=== PATIENT | female | born 1955 | race Caucasian/White ===

== ENCOUNTER 2019-03-17 07:35 | Inpatient (IN) | payer MEDICARE ==
[2019-03-17 08:26] LABS: #Eosinphils 0.3 thou/uL (0.0-0.7); #Lymphocytes 1.3 thou/uL (1.20-3.40); #Monocytes 0.8 thou/uL (0.11-0.59); #Neutrophils 6.6 thou/uL (1.40-6.50); %Basophils 0.4 % (0.0-1.0); %Lymphocytes 14.2 % (21.0-51.0); %Monocytes 8.7 % (0.0-10.0); %Neutrophils 73.6 % (42.0-75.0); Hemoglobin 10.2 g/dL (12.0-16.0); Mean Corpuscular HGB CONC 32.2 g/dL (32.0-36.0); Mean Corpuscular Hemoglobin 32.4 pg (27.0-31.0); Mean Platelet Volume 7.7 fL (7.4-10.4); Platelet Count 273 thou/uL (130-400); Red Blood Cell (RBC) Count 3.16 mill/uL (4.20-5.40)
[2019-03-17 08:49] LABS: ALT (SGPT) 8 U/L (8-55); AST (SGOT) 11 U/L (5-34); Albumin 3.4 g/dL (3.4-4.8); Alkaline Phosphatase 109 U/L (40-150); Anion Gap 24 mmol/L (10-20); BUN (Urea Nitrogen) 51 mg/dL (9.8-20.1); Bilirubin, Total 0.5 mg/dL (0.2-1.2); Calc. Creatinine Clearance 0 mL/min (70-130); Calcium 7.3 mg/dL (7.8-10.44); Carbon Dioxide 21 mmol/L (23-31); Chloride 95 mmol/L (98-107); Estimated GFR-MDRD 4; Globulin 2.9 g/dL (2.4-3.5); Glucose 130 mg/dL (80-115); Potassium 4.2 mmol/L (3.5-5.1); Protein, Total 6.3 g/dL (6.0-8.3); Sodium 136 mmol/L (136-145)
[2019-03-17] MEDS ORDERED: Nitroglycerin 2% Ointment 1 INCH/1 GM Packet ONE (09:01)
[2019-03-17] MEDS ORDERED: Aspirin Chewable 81 MG TAB ONE (09:02)
[2019-03-17 09:10] LABS: CKMB 5.2 ng/mL (0-6.6)
--- NOTE | 2019-03-17 09:21 | RAD ---
Right lower leg 2 views HISTORY: Right leg pain and swelling. FINDINGS: Tibia and fibula are intact. Mild degenerative changes of the knee and ankle. Osseous struc tures are diffusely demineralized. Sheetlike dystrophic calcification projects over the distal Achilles tendon. Prominent calcification over the arterial structures. IMPRESSION: No acute osseous abnormalities are demonstrated. Osteoporosis. Atherosclerosis.
--- NOTE | 2019-03-17 09:22 | RAD ---
Portable chest: HISTORY: Lower extremity edema COMPARISON: none FINDINGS:Cardiomegaly postop sternotomy change. Transvenous pacemaker leads. Mild vascular engorgemen t. No focal infiltrate or significant effusion. IMPRESSION:Cardiomegaly with mild vascular engorgement
[2019-03-17] MEDS ORDERED: Morphine 4 MG/ML VIAL ONE (09:49)
[2019-03-17] MEDS ORDERED: Cyclobenzaprine 10 MG TAB ONE (09:49)
[2019-03-17] MEDS ORDERED: cefTRIAXone\\ROCEPHIN 1 GM VIAL ONE (10:02)
[2019-03-17] MEDS ORDERED: ISOVUE-370 76%-LOCM 1 ML ONE (11:45)
[2019-03-17 12:26] LABS: Troponin I 0.299 ng/mL (< 0.028)
[2019-03-17] MEDS ORDERED: Diltiazem 125 MG in Sodium Chloride 0.9% 100 ML IVPB SCH (12:45)
[2019-03-17] MEDS ORDERED: Nitroglycerin 0.4 MG TAB 1 EACH ONE (12:47)
--- NOTE | 2019-03-17 13:00 | CON ---
DATE OF CONSULTATION: HISTORY OF PRESENT ILLNESS: This is a 63-year-old female who has history of end-stage renal disease, presented to the hospital after having chest pain. The patient does peritoneal dialysis daily without any complication. PAST MEDICAL HISTORY: End-stage renal disease, hypertension, tunneled dialysis catheter, AV fistula, history of cholecystectomy, hysterectomy, left hip surgery, , cataract surgery, cardiac catheterization. MEDICATIONS: Home medications list reviewed. Hospital medications list reviewed. ALLERGIES: REVIEWED. REVIEW OF SYSTEMS: A 15-point review of systems was performed and was negative except for positives noted above. GENERAL: HEAD: NECK: No swelling or lumps. NOSE: No epistaxis or discharge. EYES: No diplopia or pain. RESPIRATORY: CARDIOVASCULAR: GASTROINTESTINAL: /AGRICULTURAL EDUCATION INSTRUCTOR: MUSCULOSKELETAL: No joint pain. NEUROPSYCHIATRIC SYSTEMS: No suicidal ideation. No ideation. SKIN: Denies any rash or ulcer. CONSTITUTIONAL: No fever or chills. PHYSICAL EXAMINATION: See above. CONSTITUTIONAL: Awake, alert, in no acute distress. VITAL SIGNS: Afebrile. Pulse 70, breathing 16, blood pressure 130/70. GENERAL APPEARANCE AND MENTAL STATUS: Fair. HEAD/NECK: Normocephalic. Atraumatic. EYES: EOMI. No deformity. EARS: Clear. No ulcers. NOSE: Intact. No lesions. MOUTH: Clear. No discharge. THROAT: Clear. No exudate. LUNGS: Clear. No crackles. CARDIAC: S1, S2. No rub. ABDOMEN: Benign. Bowel sounds positive. GENITALIA/RECTUM: Steiner absent. BACK/EXTREMITIES: Lower extremity has skin ulcer. NEUROLOGICAL: Alert and motor intact. SKIN: LYMPHATICS: LABORATORY DATA: Labs show hemoglobin 10.2. ASSESSMENT AND PLAN: 1. Stage 6 chronic kidney disease, continue peritoneal dialysis. 2. Hypertension, stable. 3. Anemia. 4. Foot ulcer, advised the patient to be compliant with diet. 5. Skin ulcer, management per primary team. 6. Chest pain, management per primary team. Job ID: [id number]
[2019-03-17] MEDS ORDERED: Fentanyl 100 MCG/2 ML VIAL SLOW IVP SCH (13:15)
[2019-03-17] MEDS ORDERED: Amiodarone 450 MG in Dextrose 5% in Water 250 ML IVPB SCH (13:15)
--- NOTE | 2019-03-17 13:17 | HP ---
PRIMARY CARE PROVIDER: Dr. Sujey Mota. REFRIGERATION SPECIALIST: Dr. Blandon. CHIEF COMPLAINT: Chest pain. HISTORY OF PRESENT ILLNESS: Ms. Pandya is a pleasant 63-year-old lady, who was seen at [facility] on March 17, 2019. She is a peritoneal dialysis patient. She initially presented to the emergency room, complaining of bilateral lower extremity swelling and blisters behind her ankles. After coming to the emergency room, she started having on and off chest pain. She describes the pain as retrosternal, sharp, radiating to her back, accompanied by shortness of breath and nausea. She denies any lightheadedness. She denies any fevers or chills. She denies any vomiting. She reports that she did not have this kind of pain in the past. She cannot recall any aggravating or relieving factors for the chest pain. REVIEW OF SYSTEMS: All other systems reviewed and found to be negative. PAST MEDICAL HISTORY: 1. Coronary artery disease. 2. Atrial fibrillation. 3. Status post pacemaker placement. 4. Hypothyroidism. 5. Diabetes mellitus, type 2. 6. Hypertension. 7. End-stage renal disease, on peritoneal dialysis. SURGICAL HISTORY: 1. Dialysis shunt in the right upper extremity. 2. Peritoneal dialysis catheter to right lower quadrant. 3. Hysterectomy. FAMILY HISTORY: No family history of premature coronary artery disease. SOCIAL HISTORY: The patient denies tobacco use, alcohol use, and recreational drug use. ALLERGIES: DEMEROL AND PENICILLIN. CURRENT MEDICATIONS: 1. Renvela 800 mg tablets two tablets 3 times a day. 2. Multaq 400 mg 2 times a day. 3. Levothyroxine 25 mcg daily. PHYSICAL EXAMINATION: GENERAL: On examination, Ms. Pandya is awake and alert, not in acute distress. VITAL SIGNS: Blood pressure is 119/71, pulse 86, respiratory rate 17, and oxygen saturation 98% on room air. She is afebrile. EYES: No scleral icterus, no conjunctival pallor. ENT: Moist mucosal membranes. No oropharyngeal erythema or exudates. NECK: Supple, nontender, trachea is midline. RESPIRATORY: Accessory muscles of breathing are not active. Chest wall movements are symmetric bilaterally. Lungs are clear to auscultation without wheeze, rhonchi, or crepitations. CARDIOVASCULAR: S1 and S2 are heard, regular. Peripheral pulses palpable. No carotid bruit. No pericardial rub. ABDOMEN: Soft, nontender, bowel sounds heard. NEUROLOGIC: Cranial nerves 2 through 12 are intact. MUSCULOSKELETAL: Power is 5/5 in all 4 extremities. SKIN: Bilateral lower extremity edema, healing wounds over the posterior aspect of the right leg. LYMPHATIC: No cervical lymphadenopathy. PSYCHIATRIC: Normal mood, normal affect, the patient is oriented to person, place, and time. DIAGNOSTIC STUDIES: Ms. Pandya's labs and investigations were reviewed. I reviewed her electrocardiogram from 9:06 a.m., which shows wide QRS rhythm, no ST changes to suggest an acute coronary syndrome. I also reviewed her chest x-ray, which shows cardiomegaly and vascular engorgement. Tibia and fibula x-rays did not show any acute osseous abnormalities. Normal white count, macrocytic anemia with hemoglobin 10.2, normal platelet count. Normal sodium, normal potassium, elevated blood urea nitrogen of 51 and elevated creatinine of 9.39. Troponin-I is indeterminate at 0.299. BNP is mildly elevated at 209. ASSESSMENT AND PLAN: Ms. Pandya is a pleasant 63-year-old lady, who was seen at [facility] on March 17, 2019. Her problem list includes: 1. Chest pain: Etiology is unclear. Given her significant cardiac history, she will be admitted to the hospital for monitoring on telemetry and to recheck her cardiac enzymes. Cardiology Service will be consulted for opinion and help with management. 2. Atrial fibrillation: The patient has a history of paroxysmal atrial fibrillation. Her initial echocardiogram showed wide QRS rhythm. However, the latest electrocardiogram shows atrial fibrillation with rapid ventricular response. She will be started on Cardizem drip. A 2D echocardiogram will be requested. 3. End-stage renal disease, on peritoneal dialysis: Nephrology Service is being consulted for maintenance dialysis. 4. Diabetes mellitus, type 2: The patient will be started on Accu-Cheks and insulin sliding scale. 5. Hypertension: We will monitor her vital signs and titrate antihypertensives as needed. Many thanks for allowing me to participate in your patient's care. Please feel free to contact me with any questions or concerns. LEVEL OF RISK: High. LEVEL OF COMPLEXITY: High. Job ID: [id number]
--- NOTE | 2019-03-17 14:35 | CT ---
CT arteriogram chest with IV contrast and 3-D imaging CT arteriogram abdomen with IV contrast and 3-D imaging HISTORY: Chest and abdomen pain. Back pain. FINDINGS: There is good contrast opacification the pulmonary arteries and thoracic aorta with normal branching great vessels. Calcification throughout the arterial structures. Calcification within the proximal portion of the superior mesenteric artery resulting long segment high-grade stenosis. Second benjamin arteries supply the inferior pole of each kidney. Nonspecific lymph nodes throughout the mediastinum. Gallbladder not visualized. Presumed surgically a bsent. Degenerative and postoperative changes lumbar spine. Radiopaque tubing of the lower abdomen is partially visualized and may represent peritoneal dialysis catheter. IMPRESSION: No evidence of aortic dissection or aneurysm. Atherosclerosis. 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
[2019-03-17 15:33] LABS: Troponin I 0.318 ng/mL (< 0.028)
[2019-03-17] MEDS ORDERED: Communication Order-Pharmacy FS SCH (16:00)
--- NOTE | 2019-03-17 16:27 | CON ---
DATE OF CONSULTATION: 03/17/2019 REASON FOR CONSULTATION: Chest pain. HISTORY OF PRESENT ILLNESS: Ms. Pandya is a pleasant 63-year-old white female, who comes to the hospital for bilateral lower extremity ulcers and pain. She was in the ER for leg pain. She has some ulcers, probably from peripheral vascular disease and started having chest tightness described it as stone on her chest. She suddenly went into atrial fibrillation RVR, heart rate in the 40s and she converted on her own within about 20 minutes. Her pain got better after fentanyl was given. Troponins were drawn and have increased from 0.27 up to 0.31, so Cardiology is being consulted for all of this. On my evaluation, Ms. Pandya is chest pain free. She just feels a little discomfort. She has significant history of coronary artery disease. She has had stents placed in the past, the last time was in 2004, almost [address] Blandon is her primary metal furniture polisher. She last saw him in November of this year. She remembers having had a stress test last year and being told that everything looked fine. PAST MEDICAL HISTORY: 1. End-stage renal disease, on peritoneal dialysis. 2. Coronary artery disease as above. 3. Paroxysmal atrial fibrillation. 4. Pacemaker placement recently. 5. Hypothyroidism. 6. Type 2 diabetes. 7. Hypertension. PAST SURGICAL HISTORY: 1. Dialysis shunt, right upper extremity. 2. Peritoneal dialysis catheter, right lower quadrant. 3. Hysterectomy. 4. Heart catheterization with stenting last one in 2004. FAMILY HISTORY: No early coronary artery disease. SOCIAL HISTORY: No alcohol, tobacco, or drugs. ALLERGIES: DEMEROL AND PENICILLIN. OUTPATIENT MEDICATIONS: Include: 1. Renvela 800 mg 3 times a day. 2. Multaq 400 mg b.i.d. 3. Levothyroxine 25 mcg a day. REVIEW OF SYSTEMS: A 12-point review of systems was done and was all negative unless stated in the history of present illness. PHYSICAL EXAMINATION: VITAL SIGNS: Temperature 98.2, pulse 78, respiratory rate 18, saturating 98% on 2 L nasal cannula. GENERAL: Awake, alert, and oriented x3, in no distress. HEENT: Normocephalic and atraumatic. NECK: Supple. LUNGS: Clear. CARDIOVASCULAR: S1 and S2. No S3 or S4. There is a grade 2/6 systolic murmur at the left sternal border. ABDOMEN: Soft. Positive bowel sounds. EXTREMITIES: 1+ edema. There are some ulcers in the posterior aspect of the leg and very tender. SKIN: Warm. LABORATORY DATA: Laboratory work was reviewed. CBC with a white count of 9, hemoglobin of 10, hematocrit 31, platelet count of 273. Chemistries were reviewed. BUN 51, creatinine 9.3, gap was 24, GFR 4, glucose of 130, calcium 7.3. Troponin 0.27 to 0.29 and then 0.31. BNP was 209. Albumin of 3.4. CT per dissection protocol was unremarkable except for atherosclerotic disease and a very high-grade stenosis of the superior mesenteric artery. X-rays of the tibia-fibula showed osteoporosis, but no acute osseous abnormality. No evidence of bone infection. Chest x-ray showed cardiomegaly with mild vascular engorgement. ASSESSMENT AND PLAN: 1. Chest pain: Concern for angina. Her elevated troponins could be explained by her renal dysfunction. However, in the setting of having chest pain, we have to assume this is related to coronary artery disease and is in fact angina. We will plan on further risk stratification with a heart catheterization. We spoke at length about the risks and benefits of the procedure. Risks included, but not limited to stroke, [place], , bleeding, need for blood transfusion, limb loss, organ loss. The patient understands verbalized understanding of this and agrees to proceed. 2. Drug-eluting stents if needed. 3. Bilateral lower extremity ulcers. We will get a CT angio of the bilateral lower extremities this evening to see what we are dealing with as far as her peripheral vascular disease. If her heart checks out, we may have to do peripheral angio and possible intervention to her legs to try to open better blood flow to leg, so she can heal better. Thank you for letting us participate in the care of your patient. We will follow. Job ID: [id number]
[2019-03-17] MEDS: Morphine 2 MG/ML SYRINGE SLOW IVP PRN ×2 (16:33→21:03)
[2019-03-17 18:03] VITALS: BMI 46.8
[2019-03-18] MEDS: Morphine 2 MG/ML SYRINGE SLOW IVP PRN ×3 (02:04→21:24)
[2019-03-18] MEDS: Acetaminophen 325 MG TAB PO PRN ×3 (03:06→18:15)
[2019-03-18 07:53] LABS: #Eosinphils 0.3 thou/uL (0.0-0.7); #Monocytes 0.8 thou/uL (0.11-0.59); #Neutrophils 6.2 thou/uL (1.40-6.50); %Basophils 0.2 % (0.0-1.0); %Eosinophils 3.3 % (0.0-10.0); %Lymphocytes 11.7 % (21.0-51.0); %Monocytes 9.4 % (0.0-10.0); %Neutrophils 75.4 % (42.0-75.0); Hemoglobin 9.4 g/dL (12.0-16.0); Mean Corpuscular HGB CONC 31.3 g/dL (32.0-36.0); Mean Corpuscular Hemoglobin 31.7 pg (27.0-31.0); Mean Platelet Volume 7.7 fL (7.4-10.4); Platelet Count 254 thou/uL (130-400); RBC Distribution Width 13.2 % (11.5-14.5); Red Blood Cell (RBC) Count 2.96 mill/uL (4.20-5.40); White Blood Cell (WBC) Count 8.2 thou/uL (4.8-10.8)
[2019-03-18 08:19] LABS: Anion Gap 19 mmol/L (10-20); BUN (Urea Nitrogen) 49 mg/dL (9.8-20.1); Calc. Creatinine Clearance 12 mL/min (70-130); Calcium 7.6 mg/dL (7.8-10.44); Carbon Dioxide 24 mmol/L (23-31); Chloride 96 mmol/L (98-107); Estimated GFR-MDRD 5; Glucose 158 mg/dL (80-115); Potassium 4.1 mmol/L (3.5-5.1); Sodium 135 mmol/L (136-145)
[2019-03-18] MEDS: Dronedarone HCl 400 MG TAB PO SCH ×2 (09:26→21:23)
--- NOTE | 2019-03-18 09:31 | PRG ---
DATE OF SERVICE: 03/18/2019 SUBJECTIVE: This is a 63-year-old female being seen for end-stage renal disease. The patient denied nausea, vomiting, or chest pain. OBJECTIVE: See above. CONSTITUTIONAL: Awake, alert, in no acute distress. VITAL SIGNS: Afebrile. Pulse 85, breathing 16, and blood pressure 118/54. GENERAL APPEARANCE AND MENTAL STATUS: Fair. HEAD/NECK: Normocephalic. Atraumatic. EYES: EOMI. No deformity. EARS: Clear. No ulcers. NOSE: Intact. No lesions. MOUTH: Clear. No discharge. THROAT: Clear. No exudate. LUNGS: Clear. No crackles. CARDIAC: S1, S2. No rub. ABDOMEN: Benign. Bowel sounds positive. GENITALIA/RECTUM: Steiner absent. BACK/EXTREMITIES: Edema 0+. NEUROLOGICAL: Alert and motor intact. SKIN: LYMPHATICS: LABORATORY DATA: Reviewed. ASSESSMENT AND PLAN: 1. Stage 6 chronic kidney disease, continue PD. 2. Hypertension, stable. 3. Anemia, stable. 4. Medication based on GFR appropriate. Job ID: [id number]
[2019-03-18 10:11] LABS: CKMB 11.5 ng/mL (0-6.6)
[2019-03-18] MEDS ORDERED: Iopamidol 370 76% 100 ML VIAL ONE (10:27)
[2019-03-18] MEDS ORDERED: Midazolam HCl 2 mg/2 ml Vial ONE (11:46)
[2019-03-18] MEDS ORDERED: Fentanyl 100 MCG/2 ML VIAL ONE (11:46)
[2019-03-18] MEDS ORDERED: Heparin 10,000 UNITS/1 ML VIAL ONE ×2 (12:31→12:56)
[2019-03-18] MEDS ORDERED: TICAGRELOR 90 MG TABLET ONE (12:39)
--- NOTE | 2019-03-18 13:15 | PDOC.PN ---
- Subjective Encounter Start Date: 03/18/19 Encounter Start Time: 13:13 Subjective: bothered by the foot/leg wounds/blisters -: no CP/SOB - Objective MAR Reviewed: Yes Vital Signs & Weight: Vital Signs (12 hours) Temp Pulse Resp BP Pulse Ox 03/18/19 11:21 98.6 F 87 18 99/44 L 95 03/18/19 07:53 98.8 F 85 16 118/55 L 93 L 03/18/19 07:30 98 03/18/19 04:00 97.9 F 84 19 101/65 95 Weight Admit Weight 256 lb 4.8 oz Weight 256 lb 4.8 oz I&O: 03/17/19 03/18/19 03/19/19 06:59 06:59 06:59 Intake Total 340 Output Total 100 Balance 240 Result Diagrams: 03/18/19 07:37 03/18/19 07:37 Additional Labs: Accuchecks 03/18/19 03/18/19 03/17/19 10:40 05:45 19:44 POC Glucose 153 H 162 H 165 H Laboratory Tests 03/17/19 03/17/19 03/17/19 08:12 11:44 14:59 Troponin I 0.278 H 0.299 H 0.318 H* 03/18/19 07:37 Troponin I 1.347 H* Phys Exam - Physical Examination Constitutional: NAD tired looking HEENT: PERRLA, moist MMs, sclera anicteric, oral pharynx no lesions Neck: no nodes, no JVD, supple, full ROM Respiratory: no wheezing, no rales, no rhonchi Cardiovascular: RRR, no significant murmur Gastrointestinal: soft, non-tender, no distention, positive bowel sounds Musculoskeletal: pulses present, edema present open blisters on feet and ankles Psychiatric: normal affect, A&O x 3 Skin: no rash Dx/Plan (1) Type 2 myocardial infarction Code(s): I21.A1 - MYOCARDIAL INFARCTION TYPE 2 Status: Acute Comment: Cardiac Cath today. (2) Wound, open, leg Code(s): S81.809A - UNSPECIFIED OPEN WOUND, UNSPECIFIED LOWER LEG, INIT ENCNTR Status: Acute Comment: Lower extremities angiogram ordered. suspect PAD. Wound care consulted.start Statin,ASA when Ok w cardiology (3) Paroxysmal atrial fibrillation Code(s): I48.0 - PAROXYSMAL ATRIAL FIBRILLATION Status: Chronic Comment: NSR rocky r[place]. monitor.restart Multaq. Not on any OAC per her [place] Cl[employer] Dr. Blandon (4) CAD (coronary artery disease) Code(s): I25.10 - ATHSCL HEART DISEASE OF [place] CORONARY ARTERY W/O ANG PCTRS Status: Chronic Comment: Restart ASA after Cath .Reconcile home meds. (5) DM2 (diabetes mellitus, type 2) Status: Chronic Comment: ISS w Accuchecks (6) HTN (hypertension) Code(s): I10 - ESSENTIAL (PRIMARY) HYPERTENSION Status: Chronic (7) ESRD (end stage renal disease) on dialysis Code(s): N18.6 - END STAGE RENAL DISEASE; Z99.2 - DEPENDENCE ON RENAL DIALYSIS Status: Chronic Comment: Cont PD in house. daily labs (8) SMA stenosis Code(s): I77.1 - STRICTURE OF ARTERY Status: Chronic Comment: suspect chronic as Pt asymptomatic.Will need at least ASA and statin. (9) Pacemaker Code(s): Z95.0 - PRESENCE OF CARDIAC PACEMAKER Status: Chronic - Plan respiratory therapy, incentive spirometry, DVT proph w/SCDs Up going troponin.cath today. -: should be on BB,GRACE-I,ASA,statin. not listed in home meds -: peritoneal dialysis. nephrology folloing -: AM labs.HD stable -: high risk of decompensation d/t multiple co morbidities * . Review of Systems - Review of Systems Constitutional: weakness, malaise. negative: fever, chills, sweats, other ENT: negative: Ear Pain, Ear Discharge, Nose Pain, Nose Discharge, Nose Congestion, Mouth Pain, Mouth Swelling, Throat Pain, Throat Swelling, Other Respiratory: negative: Cough, Dry, Shortness of Breath, Hemoptysis, SOB with Excertion, Pleuritic Pain, Sputum, Wheezing Cardiovascular: negative: chest pain, palpitations, orthopnea, paroxysmal nocturnal dyspnea, edema, light headedness, other Gastrointestinal: negative: Nausea, Vomiting, Abdominal Pain, Diarrhea, Constipation, Melena, Hematochezia, Other Genitourinary: negative: Dysuria, Frequency, Incontinence, Hematuria, Retention , Other Musculoskeletal: Foot Pain. negative: Neck Pain, Shoulder Pain, Arm Pain, Back Pain, Hand Pain, Leg Pain, Other Skin: negative: Rash, Lesions, Ronal, Bruising, Other Neurological: negative: Weakness, Numbness, Incoordination, Change in Speech, Confusion, Seizures, Other - Medications/Allergies Allergies/Adverse Reactions: Allergies Allergy/AdvReac Type Severity Reaction Status Date / Time meperidine [From Demerol] Allergy Verified 03/17/19 12:39 Penicillins Allergy Verified 03/17/19 12:39 Medications: Current Medications Acetaminophen (Tylenol) 650 mg PO Q4H PRN PRN Reason: Headache/Fever/Mild Pain (1-3) Last Admin: 03/18/19 09:05 Dose: 650 mg Dronedarone (Multaq) 400 mg PO BID AFSHAN Last Admin: 03/18/19 09:26 Dose: 400 mg Levothyroxine Sodium (Synthroid) 125 mcg PO 0600 [facility] Miscellaneous Information (Communication Order-Pharmacy) 0 each FS ONE [facility] Stop: 03/18/19 16:01 Morphine Sulfate (Morphine) 2 mg SLOW IVP Q4H PRN PRN Reason: Pain Last Admin: 03/18/19 06:42 Dose: 2 mg Sevelamer Carbonate (Renvela) 1,600 mg PO TID [facility] Sodium Chloride (Flush - Normal Saline) 10 ml IVF Q12HR AFSHAN Last Admin: 03/18/19 09:05 Dose: 10 ml Sodium Chloride (Flush - Normal Saline) 10 ml IVF PRN PRN PRN Reason: Saline Flush
[2019-03-18] MEDS ORDERED: Sodium Chloride 0.9% 1,000 ML IV SCH (14:00)
[2019-03-18] MEDS: Sevelamer Carbonate 800 MG TAB PO SCH ×2 (15:12→21:22)
[2019-03-18] MEDS ORDERED: Morphine 2 MG/ML SYRINGE ONE (17:10)
[2019-03-18] MEDS: Atorvastatin Calcium 20 MG TAB PO SCH (21:22)
[2019-03-18] MEDS: TICAGRELOR 90 MG TABLET PO SCH (21:23)
[2019-03-19] MEDS: Morphine 2 MG/ML SYRINGE SLOW IVP PRN ×6 (01:33→21:45)
[2019-03-19] MEDS: Acetaminophen 325 MG TAB PO PRN ×3 (04:17→15:16)
[2019-03-19] MEDS: Levothyroxine Sodium 125 MCG TAB PO SCH (05:33)
[2019-03-19 05:46] LABS: #Eosinphils 0.2 thou/uL (0.0-0.7); #Lymphocytes 0.9 thou/uL (1.20-3.40); #Monocytes 0.5 thou/uL (0.11-0.59); #Neutrophils 5.4 thou/uL (1.40-6.50); %Basophils 0.2 % (0.0-1.0); %Eosinophils 3.4 % (0.0-10.0); %Lymphocytes 12.2 % (21.0-51.0); %Monocytes 7.2 % (0.0-10.0); %Neutrophils 77.1 % (42.0-75.0); Hemoglobin 9.3 g/dL (12.0-16.0); Mean Corpuscular HGB CONC 32.9 g/dL (32.0-36.0); Mean Corpuscular Hemoglobin 33.5 pg (27.0-31.0); Mean Platelet Volume 7.7 fL (7.4-10.4); Platelet Count 256 thou/uL (130-400); RBC Distribution Width 13.2 % (11.5-14.5); Red Blood Cell (RBC) Count 2.79 mill/uL (4.20-5.40)
[2019-03-19 06:05] LABS: ALT (SGPT) 7 U/L (8-55); AST (SGOT) 13 U/L (5-34); Alkaline Phosphatase 92 U/L (40-150); Anion Gap 17 mmol/L (10-20); BUN (Urea Nitrogen) 44 mg/dL (9.8-20.1); Bilirubin, Total 0.3 mg/dL (0.2-1.2); Calc. Creatinine Clearance 13 mL/min (70-130); Calcium 7.4 mg/dL (7.8-10.44); Carbon Dioxide 23 mmol/L (23-31); Chloride 97 mmol/L (98-107); Estimated GFR-MDRD 5; Globulin 3.1 g/dL (2.4-3.5); Glucose 161 mg/dL (80-115); Protein, Total 6.1 g/dL (6.0-8.3); Sodium 133 mmol/L (136-145)
[2019-03-19] MEDS ORDERED: Dextrose 50% Abboject 50 ML SYRINGE IVP PRN (07:22)
[2019-03-19] MEDS ORDERED: Dextrose 5% in Water 1,000 ML IV PRN (07:22)
[2019-03-19] MEDS: HumaLOG 300 UNITS/3 ML VIAL SC PRN ×2 (07:43→21:44)
[2019-03-19] MEDS: Dronedarone HCl 400 MG TAB PO SCH ×2 (08:47→21:44)
[2019-03-19] MEDS: Aspirin Chewable 81 MG TAB PO SCH (08:47)
[2019-03-19] MEDS: Sevelamer Carbonate 800 MG TAB PO SCH ×3 (08:47→21:44)
[2019-03-19] MEDS: TICAGRELOR 90 MG TABLET PO SCH ×2 (08:48→21:44)
--- NOTE | 2019-03-19 11:34 | PRG ---
DATE OF SERVICE: 03/19/2019 SUBJECTIVE: Patient was seen and examined at bedside and overnight events noted. Patient denies any shortness of breath or chest pain or palpitation. No history of nausea or vomiting or diarrhea or fever or chills or cramps. OBJECTIVE: GENERAL: This is an obese female, in no apparent distress. VITAL SIGNS: Temperature 97.6. Heart rate 72. Respiratory rate 20. Blood pressure 105/55. HEENT: Atraumatic, normocephalic. Oral mucosa is moist NECK: Supple. CARDIOVASCULAR: S1, S2 heard. Rate and rhythm regular. RESPIRATORY: Clear to auscultation. GASTROINTESTINAL: Abdomen is soft. MUSCULOSKELETAL: No tenderness. No edema. DERMATOLOGIC: No skin rash. NEUROLOGIC: Alert and awake and oriented X3. No focal neurologic deficits. Moving all the extremities. PSYCHIATRIC: Mood and affect normal. LABORATORY DATA: Potassium 4.0, BUN is 44, and creatinine is 8.07. ASSESSMENT AND PLAN: 1. End-stage renal disease. Continue on peritoneal dialysis. 2. Hypertension. 3. Anemia. 4. Edema. 5. Hyponatremia, limit fluid intake. We will follow. Continue on PD as tolerated. Job ID: [id number]
[2019-03-19] MEDS ORDERED: Iopamidol 370 76% 100 ML VIAL ONE (11:59)
--- NOTE | 2019-03-19 12:56 | PDOC.PN ---
- Subjective Encounter Start Date: 03/19/19 Encounter Start Time: 12:54 Subjective: c/o Leg pain in blisters.no CP/SOB - Objective MAR Reviewed: Yes Vital Signs & Weight: Vital Signs (12 hours) Temp Pulse Pulse Pulse Resp BP BP 03/19/19 12:00 98 F 73 20 03/19/19 09:52 74 103/51 L 03/19/19 09:05 72 74 106/54 L 104/52 L 03/19/19 07:20 97.6 F 73 20 03/19/19 04:00 97.5 F L 77 16 BP Pulse Ox 03/19/19 12:00 93/50 L 95 03/19/19 09:52 03/19/19 09:05 03/19/19 07:20 105/55 L 95 03/19/19 04:00 104/47 L 95 Weight Admit Weight 256 lb 4.8 oz Weight 256 lb 4.8 oz I&O: 03/18/19 03/19/19 03/20/19 06:59 06:59 06:59 Intake Total 340 1192 300 Output Total 100 200 Balance 240 992 300 Result Diagrams: 03/19/19 05:20 03/19/19 05:20 Additional Labs: Accuchecks 03/18/19 03/18/19 03/18/19 21:06 17:54 14:44 POC Glucose 161 H 115 H 130 H Phys Exam - Physical Examination Constitutional: NAD HEENT: PERRLA, moist MMs, sclera anicteric, oral pharynx no lesions Neck: no nodes, no JVD, supple, full ROM Respiratory: no wheezing, no rales, no rhonchi, clear to auscultation bilateral Cardiovascular: RRR, no significant murmur Gastrointestinal: soft, non-tender, no distention, positive bowel sounds Musculoskeletal: no edema, pulses present R 2nd toe dry gangrene Neurological: non-focal, normal sensation, moves all 4 limbs Psychiatric: normal affect, A&O x 3 Skin: no rash Deviation from normal: b/l leg blisters Dx/Plan (1) Type 2 myocardial infarction Code(s): I21.A1 - MYOCARDIAL INFARCTION TYPE 2 Status: Acute Comment: Cardiac Cath 03/18/19 with STANLEY Circumflex.cont ASA,Brilinta.on statin (2) Wound, open, leg Code(s): S81.809A - UNSPECIFIED OPEN WOUND, UNSPECIFIED LOWER LEG, INIT ENCNTR Status: Acute Comment: Lower extremities angiogram cancelled. suspect PAD. Wound care consulted.Medical management per cardiology. (3) Paroxysmal atrial fibrillation Code(s): I48.0 - PAROXYSMAL ATRIAL FIBRILLATION Status: Chronic Comment: NSR fo rnow. monitor.restart Multaq. Not on any OAC per her Assistant Surveyor Dr. Blandon (4) CAD (coronary artery disease) Code(s): I25.10 - ATHSCL HEART DISEASE OF [place] CORONARY ARTERY W/O ANG PCTRS Status: Chronic Comment: Restarted ASA ,statin after Cath .Reconcile home meds. Add BB and GRACE-I/ARB if BP allows (5) DM2 (diabetes mellitus, type 2) Status: Chronic Comment: ISS w Accuchecks (6) HTN (hypertension) Code(s): I10 - ESSENTIAL (PRIMARY) HYPERTENSION Status: Chronic (7) ESRD (end stage renal disease) on dialysis Code(s): N18.6 - END STAGE RENAL DISEASE; Z99.2 - DEPENDENCE ON RENAL DIALYSIS Status: Chronic Comment: Cont PD in house. daily labs (8) SMA stenosis Code(s): I77.1 - STRICTURE OF ARTERY Status: Chronic Comment: suspect chronic as Pt asymptomatic.ASA and statin. (9) Pacemaker Code(s): Z95.0 - PRESENCE OF CARDIAC PACEMAKER Status: Chronic - Plan PT/OT, respiratory therapy, incentive spirometry, out of bed/ambulate, DVT proph w/SCDs Pt has severe diffuse arterial disease.on ASA,Statin and now Brinlinta -: will need to F/U w her own manager respiratory care for possible LE angiogram/stenting -: Defer to cardiology -: wound care.add Lidocaine patch for leg pain -: may add CCB for vasular claudication if BP allows.Monitor * . Review of Systems - Review of Systems Constitutional: weakness, malaise. negative: fever, chills, sweats, other Respiratory: negative: Cough, Dry, Shortness of Breath, Hemoptysis, SOB with Excertion, Pleuritic Pain, Sputum, Wheezing Cardiovascular: negative: chest pain, palpitations, orthopnea, paroxysmal nocturnal dyspnea, edema, light headedness, other Gastrointestinal: negative: Nausea, Vomiting, Abdominal Pain, Diarrhea, Constipation, Melena, Hematochezia, Other Musculoskeletal: Leg Pain, Foot Pain. negative: Neck Pain, Shoulder Pain, Arm Pain, Back Pain, Hand Pain, Other Skin: negative: Rash, Lesions, Ronal, Bruising, Other Neurological: negative: Weakness, Numbness, Incoordination, Change in Speech, Confusion, Seizures, Other - Medications/Allergies Allergies/Adverse Reactions: Allergies Allergy/AdvReac Type Severity Reaction Status Date / Time meperidine [From Demerol] Allergy Verified 03/17/19 12:39 Penicillins Allergy Verified 03/17/19 12:39 Medications: Current Medications Acetaminophen (Tylenol) 650 mg PO Q4H PRN PRN Reason: Headache/Fever/Mild Pain (1-3) Last Admin: 03/19/19 08:48 Dose: 650 mg Aspirin (Aspirin Chewable) 81 mg PO DAILY [facility] Last Admin: 03/19/19 08:47 Dose: 81 mg Atorvastatin Calcium (Lipitor) 20 mg PO HS [facility] Last Admin: 03/18/19 21:22 Dose: 20 mg Dextrose/Water (Dextrose 50%) 25 gm IVP PRN PRN PRN Reason: HYPOGLYCEMIA PROTOCOL Dronedarone (Multaq) 400 mg PO BID [facility] Last Admin: 03/19/19 08:47 Dose: 400 mg Glucagon (Glucagon) 1 mg IM PRN PRN PRN Reason: HYPOGLYCEMIA PROTOCOL Dextrose/Water (D5w) 1,000 mls @ 0 mls/hr IV INF PRN PRN Reason: HYPOGLYCEMIA PROTOCOL Insulin Human Lispro (Humalog) 0 units SC .MILD SLIDING SCALE PRN; Protocol PRN Reason: MILD SLIDING SCALE Last Admin: 03/19/19 07:43 Dose: 2 unit Levothyroxine Sodium (Synthroid) 125 mcg PO 0600 [facility] Last Admin: 03/19/19 05:33 Dose: 125 mcg Morphine Sulfate (Morphine) 2 mg SLOW IVP Q4H PRN PRN Reason: Pain Last Admin: 03/19/19 09:40 Dose: 2 mg Sevelamer Carbonate (Renvela) 1,600 mg PO TID [facility] Last Admin: 03/19/19 08:47 Dose: 1,600 mg Sodium Chloride (Flush - Normal Saline) 10 ml IVF Q12HR [facility] Last Admin: 03/19/19 08:48 Dose: 10 ml Sodium Chloride (Flush - Normal Saline) 10 ml IVF PRN PRN PRN Reason: Saline Flush Ticagrelor (Brilinta) 90 mg PO BID [facility] Last Admin: 03/19/19 08:48 Dose: 90 mg
[2019-03-19] MEDS: Lidocaine 5% Patch TD SCH (13:27)
[2019-03-19] MEDS ORDERED: Nitroglycerin 0.4 MG TAB (25 Tab Bottle) SL PRN (14:26)
[2019-03-19] MEDS ORDERED: INSULIN ASPART 5 UNIT SQ SCH (15:00)
[2019-03-19] MEDS: Gabapentin 300 MG CAP PO SCH ×2 (15:15→21:44)
[2019-03-19] MEDS: HumaLOG 300 UNITS/3 ML VIAL SC SCH (16:37)
--- NOTE | 2019-03-19 16:51 | CT ---
EXAM: CT ANGIOGRAM OF THE ABDOMINAL AORTA WITH BILATERAL LOWER EXTREMITY RUNOFF 03/19/19 COMPARISON: 03/17/19 HISTORY: Diabetic ulcers. TECHNIQUE: CT angiogram of the abdominal aorta and bilateral extremity runoff is performed axially. Three dimens ional reformatted images are submitted for interpretation. FINDINGS: ABDOMEN CT: Chronic changes in the lung bases. Stable heart size. Small amount of perihepatic fluid has progressed since the previous examination. There is also interv al development of perisplenic free fluid. The pancreas and adrenal glands are unremarkable. Surgical ly absent gallbladder. No gastrohepatic, retrocrural or periportal lymphadenopathy. Symmetric enhance ment of the kidneys. Bilaterally, no obstructive uropathy. There appears to be a peritoneal catheter in the left hemiabdomen, unchanged. There is no mesenteric mass, lymphadenopathy or significant free fluid. There is no free air. The visualized alimentary canal is unremarkable. CT PELVIS: Limited evaluation due to beam attenuation artifact from a left hip arthroplasty. No obvious mass, ly mphadenopathy, free air or free fluid. CT ANGIOGRAM: The descending thoracic aorta and abdominal aorta have an overall normal caliber. No periaortic fat s tranding. There is stable atherosclerosis involving the abdominal vasculature. There is extensive ath erosclerosis involving the celiac artery, splenic artery, hepatic artery, superior mesenteric arter y. There is multifocal mild to moderate narrowing of the superior mesenteric artery as this artery is better evaluated on the current examination due to a better bolus of contrast. There does appear to be significant stenosis involving the distal superior mesenteric artery branches. Inferior mesenteric artery demonstrates multifocal significant disease proximally. Both renal artery ostia demonstrate p atency with areas of atherosclerosis. Solitary left renal artery. There are two right renal arteries. The aortic bifurcation, common iliac arteries demonstrate atherosclerosis without evidence of high gr [place] narrowing. There is multifocal moderate narrowing involving both external iliac arteries. RIGHT LOWER EXTREMITY: Multifocal significant stenosis throughout the entire right lower extremity arterial system. There i s near occlusion involving the distal superficial femoral artery/proximal popliteal artery. Aortic tr ifurcation demonstrates extensive disease. LEFT LOWER EXTREMITY: Multifocal atherosclerosis involving the left lower extremity arterial system. There is short segmen t severe stenosis involving the mid superficial femoral artery, distal superficial femoral artery, as well as the popliteal artery. The arterial trifurcation demonstrates extensive multifocal disease. IMPRESSION: Extensive atherosclerosis and significant narrowing as described above. POS: CICI
[2019-03-19] MEDS: HYDROcodone/Acetaminophen 5/325 mg Tablet PO PRN (16:58)
--- NOTE | 2019-03-19 19:39 | EKG ---
Test Reason : CHEST PAIN Blood Pressure : / mmHG Vent. Rate : 097 BPM Atrial Rate : 097 BPM P-R Int : 080 ms QRS Dur : 096 ms QT Int : 406 ms P-R-T Axes : 000 202 -76 degrees QTc Int : 515 ms Suspect arm lead reversal, interpretation assumes no reversal Sinus rhythm with short UT with frequent Premature ventricular complexes Right ventricular hypertrophy Inferior infarct , age undetermined Anterolateral infarct , age undetermined Prolonged QT Abnormal ECG Confirmed by JAN VILLA DO ([id number]), magazine editor VERENA [place] ([id number]) on 03/19/2019 7:37:30 PM Referred By: DAISY Confirmed By:JAN VILLA DO
--- NOTE | 2019-03-19 19:39 | EKG ---
Test Reason : Blood Pressure : / mmHG Vent. Rate : 090 BPM Atrial Rate : 090 BPM P-R Int : 000 ms QRS Dur : 156 ms QT Int : 430 ms P-R-T Axes : 000 144 007 degrees QTc Int : 526 ms Wide QRS rhythm Right bundle branch block Abnormal ECG Confirmed by JAN VILLA DO ([id number]), manager editorial VERENA [place] ([id number]) on 03/19/2019 7:37:32 PM Referred By: Confirmed By:JAN VILLA DO
[2019-03-19] MEDS: Docusate 100 MG CAP PO SCH (21:44)
[2019-03-19] MEDS: Atorvastatin Calcium 20 MG TAB PO SCH (21:44)
[2019-03-19] MEDS: Amitriptyline HCl 10 MG TAB PO SCH (21:44)
[2019-03-20] MEDS: Lidocaine Patch Removal 1 EACH TOP SCH (03:45)
[2019-03-20] MEDS: Levothyroxine Sodium 125 MCG TAB PO SCH (05:47)
[2019-03-20] MEDS: Morphine 2 MG/ML SYRINGE SLOW IVP PRN ×3 (05:47→20:45)
[2019-03-20 06:22] LABS: #Eosinphils 0.3 thou/uL (0.0-0.7); #Lymphocytes 0.9 thou/uL (1.20-3.40); #Monocytes 0.6 thou/uL (0.11-0.59); #Neutrophils 7.1 thou/uL (1.40-6.50); %Basophils 0.1 % (0.0-1.0); %Eosinophils 3.4 % (0.0-10.0); %Lymphocytes 9.8 % (21.0-51.0); %Monocytes 6.7 % (0.0-10.0); %Neutrophils 79.9 % (42.0-75.0); Hemoglobin 9.2 g/dL (12.0-16.0); Mean Corpuscular HGB CONC 33.1 g/dL (32.0-36.0); Mean Corpuscular Hemoglobin 33.3 pg (27.0-31.0); Mean Platelet Volume 7.6 fL (7.4-10.4); Platelet Count 260 thou/uL (130-400); RBC Distribution Width 13.1 % (11.5-14.5); Red Blood Cell (RBC) Count 2.78 mill/uL (4.20-5.40); White Blood Cell (WBC) Count 8.9 thou/uL (4.8-10.8)
[2019-03-20 06:23] LABS: Anion Gap 18 mmol/L (10-20); BUN (Urea Nitrogen) 41 mg/dL (9.8-20.1); Calc. Creatinine Clearance 14 mL/min (70-130); Calcium 7.5 mg/dL (7.8-10.44); Carbon Dioxide 23 mmol/L (23-31); Chloride 96 mmol/L (98-107); Estimated GFR-MDRD 6; Glucose 137 mg/dL (80-115); Potassium 4.1 mmol/L (3.5-5.1); Sodium 133 mmol/L (136-145)
[2019-03-20] MEDS: Diazepam 5 MG TAB PO SCH (09:49)
[2019-03-20] MEDS: Sevelamer Carbonate 800 MG TAB PO SCH ×3 (09:50→20:45)
[2019-03-20] MEDS: Calcitriol 0.25 MCG CAP PO SCH (09:51)
[2019-03-20] MEDS: TICAGRELOR 90 MG TABLET PO SCH ×2 (09:52→20:45)
[2019-03-20] MEDS: Dronedarone HCl 400 MG TAB PO SCH ×2 (09:52→20:45)
[2019-03-20] MEDS: Aspirin Chewable 81 MG TAB PO SCH (09:53)
[2019-03-20] MEDS: Gabapentin 300 MG CAP PO SCH ×3 (09:54→20:45)
[2019-03-20] MEDS: Docusate 100 MG CAP PO SCH ×2 (09:54→20:45)
[2019-03-20] MEDS: HumaLOG 300 UNITS/3 ML VIAL SC SCH ×3 (09:59→17:47)
--- NOTE | 2019-03-20 10:57 | PRG ---
DATE OF SERVICE: 03/20/2019 SUBJECTIVE: Patient was seen and examined at bedside and overnight events noted. Patient denies any shortness of breath or chest pain or palpitation. No history of nausea or vomiting or diarrhea or fever or chills or cramps. OBJECTIVE: GENERAL: This is an obese female, in no apparent distress. VITAL SIGNS: Temperature 99.2. Heart rate 80. Respiratory rate 18. Blood pressure 121/53. HEENT: Atraumatic, normocephalic. Oral mucosa is moist NECK: Supple. CARDIOVASCULAR: S1, S2 heard. Rate and rhythm regular. RESPIRATORY: Clear to auscultation. GASTROINTESTINAL: Abdomen is soft. MUSCULOSKELETAL: No tenderness. No edema. DERMATOLOGIC: No skin rash. NEUROLOGIC: Alert and awake and oriented X3. No focal neurologic deficits. Moving all the extremities. PSYCHIATRIC: Mood and affect normal. LABORATORY DATA: Potassium 4.0, BUN is 41, and creatinine 7.1. ASSESSMENT AND PLAN: 1. End-stage renal disease. Continue on peritoneal dialysis. 2. Hypertension. 3. Anemia. Monitor hemoglobin. 4. Edema. Will remove fluid. 5. Hyponatremia. Limit fluid intake. We will continue on peritoneal dialysis as tolerated. Job ID: [id number]
[2019-03-20] MEDS: HYDROcodone/Acetaminophen 5/325 mg Tablet PO PRN (12:27)
--- NOTE | 2019-03-20 13:24 | PDOC.PN ---
- Subjective Encounter Start Date: 03/20/19 Encounter Start Time: 13:23 Subjective: feels poorly.c/o seveer leg pain both side -: no CP/SOB - Objective MAR Reviewed: Yes Vital Signs & Weight: Vital Signs (12 hours) Temp Pulse Resp BP Pulse Ox 03/20/19 11:58 99 F 81 18 124/47 L 94 L 03/20/19 10:00 96 03/20/19 07:40 99.2 F 80 18 124/53 L 96 03/20/19 03:48 107/50 L 03/20/19 03:36 97.5 F L 80 16 94 L Weight Admit Weight 256 lb 4.8 oz Weight 256 lb 4.8 oz I&O: 03/19/19 03/20/19 03/21/19 06:59 06:59 06:59 Intake Total 1192 864 Output Total 200 50 Balance 992 814 Result Diagrams: 03/20/19 05:43 03/20/19 05:43 Additional Labs: Accuchecks 03/20/19 03/20/19 03/20/19 11:54 05:56 05:33 POC Glucose 78 132 H 164 H 03/19/19 03/19/19 03/19/19 20:46 16:35 05:56 POC Glucose 210 H 124 H 190 H Laboratory Tests 03/17/19 03/18/19 03/19/19 08:12 07:37 05:20 Hgb 10.2 L 9.4 L 9.3 L 03/20/19 05:43 Hgb 9.2 L Phys Exam - Physical Examination Constitutional: NAD HEENT: PERRLA, moist MMs, sclera anicteric, TM's clear, oral pharynx no lesions , 2+ tonsils Neck: no nodes, no JVD, supple, full ROM Respiratory: no wheezing, no rales, no rhonchi, wheezing present, clear to auscultation bilateral Cardiovascular: RRR, no significant murmur, no rub, gallop, irregular Gastrointestinal: soft, non-tender, no distention, positive bowel sounds Musculoskeletal: no edema, pulses present b/l LE blisters & open sores.Dry gangrene 2nd R toe Neurological: non-focal, normal sensation, moves all 4 limbs Psychiatric: normal affect, A&O x 3 Skin: no rash Dx/Plan (1) Type 2 myocardial infarction Code(s): I21.A1 - MYOCARDIAL INFARCTION TYPE 2 Status: Acute Comment: Cardiac Cath 03/18/19 with STANLEY Circumflex.cont ASA,Brilinta.on statin (2) Wound, open, leg Code(s): S81.809A - UNSPECIFIED OPEN WOUND, UNSPECIFIED LOWER LEG, INIT ENCNTR Status: Acute Comment: Lower extremities angiogram done now showing severe diffuse PAD. suspect PAD. Wound care consulted.cont ASA,Brilinta,Statin. (3) Paroxysmal atrial fibrillation Code(s): I48.0 - PAROXYSMAL ATRIAL FIBRILLATION Status: Chronic Comment: NSR for now. monitor.restart Multaq. Not on any OAC per her Shift Engineer Dr. Blandon (4) CAD (coronary artery disease) Code(s): I25.10 - ATHSCL HEART DISEASE OF [place] CORONARY ARTERY W/O ANG PCTRS Status: Chronic Comment: Restarted ASA ,statin after Cath .Reconcile home meds. Add BB and GRACE-I/ARB if BP allows (5) DM2 (diabetes mellitus, type 2) Status: Chronic Comment: ISS w Accuchecks (6) HTN (hypertension) Code(s): I10 - ESSENTIAL (PRIMARY) HYPERTENSION Status: Chronic (7) ESRD (end stage renal disease) on dialysis Code(s): N18.6 - END STAGE RENAL DISEASE; Z99.2 - DEPENDENCE ON RENAL DIALYSIS Status: Chronic Comment: Cont PD in house. daily labs (8) SMA stenosis Code(s): I77.1 - STRICTURE OF ARTERY Status: Chronic Comment: suspect chronic as Pt asymptomatic.ASA and statin. (9) Pacemaker Code(s): Z95.0 - PRESENCE OF CARDIAC PACEMAKER Status: Chronic - Plan PT/OT, respiratory therapy, incentive spirometry, out of bed/ambulate, DVT proph w/SCDs ? CTS consult for angioplasty legs. pt w severe claudiucation & non healing -: wounds. will defer to Cardiology -: cont wound care and medical amangement for now -: HD stable. am labs as pt on peritoneal dialysis. * . Review of Systems - Review of Systems Constitutional: weakness, malaise. negative: fever, chills, sweats, other ENT: negative: Ear Pain, Ear Discharge, Nose Pain, Nose Discharge, Nose Congestion, Mouth Pain, Mouth Swelling, Throat Pain, Throat Swelling, Other Respiratory: negative: Cough, Dry, Shortness of Breath, Hemoptysis, SOB with Excertion, Pleuritic Pain, Sputum, Wheezing Cardiovascular: negative: chest pain, palpitations, orthopnea, paroxysmal nocturnal dyspnea, edema, light headedness, other Gastrointestinal: negative: Nausea, Vomiting, Abdominal Pain, Diarrhea, Constipation, Melena, Hematochezia, Other Genitourinary: negative: Dysuria, Frequency, Incontinence, Hematuria, Retention , Other Musculoskeletal: Leg Pain. negative: Neck Pain, Shoulder Pain, Arm Pain, Back Pain, Hand Pain, Foot Pain, Other Neurological: negative: Weakness, Numbness, Incoordination, Change in Speech, Confusion, Seizures, Other - Medications/Allergies Allergies/Adverse Reactions: Allergies Allergy/AdvReac Type Severity Reaction Status Date / Time meperidine [From Demerol] Allergy Verified 03/17/19 12:39 Penicillins Allergy Verified 03/17/19 12:39 Medications: Current Medications Acetaminophen (Tylenol) 650 mg PO Q4H PRN PRN Reason: Headache/Fever/Mild Pain (1-3) Last Admin: 03/19/19 15:16 Dose: 650 mg Hydrocodone Bitart/Acetaminophen ([place] 5/325) 1 tab PO Q6H PRN PRN Reason: Moderate Pain (4-6) Last Admin: 03/20/19 12:27 Dose: 1 tab Amitriptyline HCl (Elavil) 10 mg PO HS [facility] Last Admin: 03/19/19 21:44 Dose: 10 mg Aspirin (Aspirin Chewable) 81 mg PO DAILY [facility] Last Admin: 03/20/19 09:53 Dose: 81 mg Atorvastatin Calcium (Lipitor) 20 mg PO HS [facility] Last Admin: 03/19/19 21:44 Dose: 20 mg Calcitriol (Rocaltrol) 0.5 mcg PO DAILY [facility] Last Admin: 03/20/19 09:51 Dose: 0.5 mcg Dextrose/Water (Dextrose 50%) 25 gm IVP PRN PRN PRN Reason: HYPOGLYCEMIA PROTOCOL Diazepam (Valium) 15 mg PO DAILY [facility] Last Admin: 03/20/19 09:49 Dose: 15 mg Docusate Sodium (Colace) 100 mg PO BID [facility] Last Admin: 03/20/19 09:54 Dose: 100 mg Dronedarone (Multaq) 400 mg PO BID [facility] Last Admin: 03/20/19 09:52 Dose: 400 mg Gabapentin (Neurontin) 300 mg PO TID [facility] Last Admin: 03/20/19 09:54 Dose: 300 mg Glucagon (Glucagon) 1 mg IM PRN PRN PRN Reason: HYPOGLYCEMIA PROTOCOL Dextrose/Water (D5w) 1,000 mls @ 0 mls/hr IV INF PRN PRN Reason: HYPOGLYCEMIA PROTOCOL Insulin Human Lispro (Humalog) 0 units SC .MILD SLIDING SCALE PRN; Protocol PRN Reason: MILD SLIDING SCALE Last Admin: 03/19/19 21:44 Dose: 3 unit Insulin Human Lispro (Humalog) 5 units SC [facility] Last Admin: 03/20/19 12:26 Dose: Not Given Levothyroxine Sodium (Synthroid) 125 mcg PO 0600 [facility] Last Admin: 03/20/19 05:47 Dose: 125 mcg Lidocaine (Lidoderm 5% Patch) 2 patch TD 1400 [facility] Last Admin: 03/19/19 13:27 Dose: 2 patch Miscellaneous Medication (Lidocaine Patch Removal) 2 each TOP 0200 [facility] Last Admin: 03/20/19 03:45 Dose: 2 each Morphine Sulfate (Morphine) 2 mg SLOW IVP Q4H PRN PRN Reason: Pain Last Admin: 03/20/19 09:55 Dose: 2 mg Nitroglycerin (Nitrostat) 0.4 mg SL Q5MIN PRN PRN Reason: Chest Pain Sertraline HCl (Zoloft) 50 mg PO DAILY [facility] Last Admin: 03/20/19 09:54 Dose: 50 mg Sevelamer Carbonate (Renvela) 1,600 mg PO TID [facility] Last Admin: 03/20/19 09:50 Dose: 1,600 mg Sodium Chloride (Flush - Normal Saline) 10 ml IVF Q12HR [facility] Last Admin: 03/20/19 09:59 Dose: 10 ml Sodium Chloride (Flush - Normal Saline) 10 ml IVF PRN PRN PRN Reason: Saline Flush Last Admin: 03/20/19 05:48 Dose: 10 ml Ticagrelor (Brilinta) 90 mg PO BID [facility] Last Admin: 03/20/19 09:52 Dose: 90 mg
[2019-03-20] MEDS: Lidocaine 5% Patch TD SCH (14:54)
[2019-03-20] MEDS: Amitriptyline HCl 10 MG TAB PO SCH (20:45)
[2019-03-20] MEDS: Atorvastatin Calcium 20 MG TAB PO SCH (20:45)
[2019-03-20] MEDS ORDERED: Mag-Al 1200 mg/1200 mg/30 ML UDCUP PO PRN (23:39)
[2019-03-21] MEDS: Morphine 2 MG/ML SYRINGE SLOW IVP PRN ×5 (01:48→20:38)
[2019-03-21] MEDS: Lidocaine Patch Removal 1 EACH TOP SCH (01:48)
[2019-03-21] MEDS: Levothyroxine Sodium 125 MCG TAB PO SCH (05:31)
[2019-03-21 06:06] LABS: Anion Gap 17 mmol/L (10-20); BUN (Urea Nitrogen) 42 mg/dL (9.8-20.1); Calc. Creatinine Clearance 14 mL/min (70-130); Calcium 7.6 mg/dL (7.8-10.44); Carbon Dioxide 27 mmol/L (23-31); Chloride 93 mmol/L (98-107); Estimated GFR-MDRD 6; Glucose 135 mg/dL (80-115); Potassium 4.1 mmol/L (3.5-5.1); Sodium 133 mmol/L (136-145)
[2019-03-21] MEDS: Calcitriol 0.25 MCG CAP PO SCH (09:31)
[2019-03-21] MEDS: Aspirin Chewable 81 MG TAB PO SCH (09:31)
[2019-03-21] MEDS: Diazepam 5 MG TAB PO SCH (09:31)
[2019-03-21] MEDS: Sevelamer Carbonate 800 MG TAB PO SCH ×3 (09:32→20:39)
[2019-03-21] MEDS: Docusate 100 MG CAP PO SCH ×2 (09:32→20:39)
[2019-03-21] MEDS: TICAGRELOR 90 MG TABLET PO SCH ×2 (09:32→20:40)
[2019-03-21] MEDS: Dronedarone HCl 400 MG TAB PO SCH ×2 (09:32→20:39)
[2019-03-21] MEDS: Gabapentin 300 MG CAP PO SCH ×3 (09:32→20:40)
--- NOTE | 2019-03-21 10:57 | PRG ---
DATE OF SERVICE: 03/21/2019 SUBJECTIVE: Patient was seen and examined at bedside and overnight events noted. Patient denies any shortness of breath or chest pain or palpitation. No history of nausea or vomiting or diarrhea or fever or chills or cramps. OBJECTIVE: GENERAL: This is a morbidly obese female, in no apparent distress. VITAL SIGNS: Temperature 98.2. Heart rate 69. Respiratory rate 18. Blood pressure 117/54. HEENT: Atraumatic, normocephalic. Oral mucosa is moist NECK: Supple. CARDIOVASCULAR: S1, S2 heard. Rate and rhythm regular. RESPIRATORY: Clear to auscultation. GASTROINTESTINAL: Abdomen is soft. MUSCULOSKELETAL: No tenderness. No edema. DERMATOLOGIC: No skin rash. NEUROLOGIC: Alert and awake and oriented X3. No focal neurologic deficits. Moving all the extremities. PSYCHIATRIC: Mood and affect normal. LABORATORY DATA: Potassium 4.0, BUN is 42, creatinine is 7.2. ASSESSMENT AND PLAN: 1. End-stage renal disease. Continue on peritoneal dialysis. 2. Hypertension. 3. Anemia. 4. Edema. 5. Hyponatremia. Limit fluid intake. Continue dialysis as tolerated. Job ID: [id number]
[2019-03-21] MEDS: Lidocaine 5% Patch TD SCH (14:09)
--- NOTE | 2019-03-21 16:31 | PDOC.PN ---
- Subjective Encounter Start Date: 03/21/19 Encounter Start Time: 16:29 Subjective: feels weak and tired,still w significant pain in legs -: poor appetite -: does not feel well but that is almost her baseline - Objective MAR Reviewed: Yes Vital Signs & Weight: Vital Signs (12 hours) Temp Pulse Resp BP Pulse Ox 03/21/19 16:00 98 F 78 17 108/46 L 100 03/21/19 13:07 98.2 F 87 19 132/58 L 91 L 03/21/19 09:30 97.5 F L 94 18 123/53 L 97 03/21/19 05:30 78 118/55 L Weight Admit Weight 256 lb 4.8 oz Weight 256 lb 4.8 oz I&O: 03/20/19 03/21/19 03/22/19 06:59 06:59 06:59 Intake Total 864 780 Output Total 50 60 Balance 814 720 Result Diagrams: 03/20/19 05:43 03/21/19 05:16 Additional Labs: Accuchecks 03/21/19 03/21/19 03/20/19 10:43 05:29 20:42 POC Glucose 129 H 201 H 183 H 03/20/19 16:43 POC Glucose 102 Phys Exam - Physical Examination Constitutional: NAD HEENT: PERRLA, moist MMs, sclera anicteric, oral pharynx no lesions Neck: no nodes, no JVD, supple, full ROM Respiratory: no wheezing, no rales, no rhonchi, clear to auscultation bilateral Cardiovascular: RRR, no significant murmur Gastrointestinal: soft, non-tender, no distention, positive bowel sounds Musculoskeletal: no edema, pulses present b/l lower leg blisters Neurological: non-focal, normal sensation, moves all 4 limbs Psychiatric: normal affect, A&O x 3 Skin: no rash Dx/Plan (1) Type 2 myocardial infarction Code(s): I21.A1 - MYOCARDIAL INFARCTION TYPE 2 Status: Acute Comment: Cardiac Cath 03/18/19 with STANLEY Circumflex.cont ASA,Brilinta.on statin (2) Wound, open, leg Code(s): S81.809A - UNSPECIFIED OPEN WOUND, UNSPECIFIED LOWER LEG, INIT ENCNTR Status: Acute Comment: Lower extremities angiogram done now showing severe diffuse PAD. suspect PAD. Wound care consulted.cont ASA,Brilinta,Statin. (3) Paroxysmal atrial fibrillation Code(s): I48.0 - PAROXYSMAL ATRIAL FIBRILLATION Status: Chronic Comment: NSR for now. monitor.restart Multaq. Not on any OAC per her [employer] Operator Dr. Blandon (4) CAD (coronary artery disease) Code(s): I25.10 - ATHSCL HEART DISEASE OF [place] CORONARY ARTERY W/O ANG PCTRS Status: Chronic Comment: Restarted ASA ,statin after Cath .Reconcile home meds. Add BB and GRACE-I/ARB if BP allows (5) DM2 (diabetes mellitus, type 2) Status: Chronic Comment: ISS w Accuchecks (6) HTN (hypertension) Code(s): I10 - ESSENTIAL (PRIMARY) HYPERTENSION Status: Chronic (7) ESRD (end stage renal disease) on dialysis Code(s): N18.6 - END STAGE RENAL DISEASE; Z99.2 - DEPENDENCE ON RENAL DIALYSIS Status: Chronic Comment: Cont PD in house. daily labs (8) SMA stenosis Code(s): I77.1 - STRICTURE OF ARTERY Status: Chronic Comment: suspect chronic as Pt asymptomatic.ASA and statin. (9) Pacemaker Code(s): Z95.0 - PRESENCE OF CARDIAC PACEMAKER Status: Chronic - Plan PT/OT, out of bed/ambulate, DVT proph w/SCDs awaiting final cardiology recs regarding severe PAD.on medical management -: cont PD w renal Fx monitoring. -: HD stable.BP on lower side. monitor. -: Rehab eval.Poor baseline functional status * . Review of Systems - Review of Systems Constitutional: weakness, malaise. negative: fever, chills, sweats, other Respiratory: negative: Cough, Dry, Shortness of Breath, Hemoptysis, SOB with Excertion, Pleuritic Pain, Sputum, Wheezing Cardiovascular: negative: chest pain, palpitations, orthopnea, paroxysmal nocturnal dyspnea, edema, light headedness, other Gastrointestinal: negative: Nausea, Vomiting, Abdominal Pain, Diarrhea, Constipation, Melena, Hematochezia, Other Genitourinary: negative: Dysuria, Frequency, Incontinence, Hematuria, Retention , Other Musculoskeletal: Leg Pain. negative: Neck Pain, Shoulder Pain, Arm Pain, Back Pain, Hand Pain, Foot Pain, Other Skin: negative: Rash, Lesions, Ronal, Bruising, Other Neurological: negative: Weakness, Numbness, Incoordination, Change in Speech, Confusion, Seizures, Other - Medications/Allergies Allergies/Adverse Reactions: Allergies Allergy/AdvReac Type Severity Reaction Status Date / Time meperidine [From Demerol] Allergy Verified 03/17/19 12:39 Penicillins Allergy Verified 03/17/19 12:39 Medications: Current Medications Acetaminophen (Tylenol) 650 mg PO Q4H PRN PRN Reason: Headache/Fever/Mild Pain (1-3) Last Admin: 03/19/19 15:16 Dose: 650 mg Hydrocodone Bitart/Acetaminophen ([place] 5/325) 1 tab PO Q6H PRN PRN Reason: Moderate Pain (4-6) Last Admin: 03/20/19 12:27 Dose: 1 tab Al Hydroxide/Mg Hydroxide (Maalox) 30 ml PO Q6H PRN PRN Reason: Heartburn or Indigestion Last Admin: 03/20/19 23:59 Dose: 30 ml Amitriptyline HCl (Elavil) 10 mg PO HS [facility] Last Admin: 03/20/19 20:45 Dose: 10 mg Aspirin (Aspirin Chewable) 81 mg PO DAILY [facility] Last Admin: 03/21/19 09:31 Dose: 81 mg Atorvastatin Calcium (Lipitor) 20 mg PO HS [facility] Last Admin: 03/20/19 20:45 Dose: 20 mg Calcitriol (Rocaltrol) 0.5 mcg PO DAILY [facility] Last Admin: 03/21/19 09:31 Dose: 0.5 mcg Dextrose/Water (Dextrose 50%) 25 gm IVP PRN PRN PRN Reason: HYPOGLYCEMIA PROTOCOL Diazepam (Valium) 15 mg PO DAILY [facility] Last Admin: 03/21/19 09:31 Dose: 15 mg Docusate Sodium (Colace) 100 mg PO BID [facility] Last Admin: 03/21/19 09:32 Dose: 100 mg Dronedarone (Multaq) 400 mg PO BID [facility] Last Admin: 03/21/19 09:32 Dose: 400 mg Gabapentin (Neurontin) 300 mg PO TID [facility] Last Admin: 03/21/19 14:10 Dose: 300 mg Glucagon (Glucagon) 1 mg IM PRN PRN PRN Reason: HYPOGLYCEMIA PROTOCOL Dextrose/Water (D5w) 1,000 mls @ 0 mls/hr IV INF PRN PRN Reason: HYPOGLYCEMIA PROTOCOL Insulin Human Lispro (Humalog) 0 units SC .MILD SLIDING SCALE PRN; Protocol PRN Reason: MILD SLIDING SCALE Last Admin: 03/19/19 21:44 Dose: 3 unit Levothyroxine Sodium (Synthroid) 125 mcg PO 0600 [facility] Last Admin: 03/21/19 05:31 Dose: 125 mcg Lidocaine (Lidoderm 5% Patch) 2 patch TD 1400 [facility] Last Admin: 03/21/19 14:09 Dose: 2 patch Miscellaneous Medication (Lidocaine Patch Removal) 2 each TOP 0200 [facility] Last Admin: 03/21/19 01:48 Dose: 2 each Morphine Sulfate (Morphine) 2 mg SLOW IVP Q4H PRN PRN Reason: Pain Last Admin: 03/21/19 15:55 Dose: 2 mg Nitroglycerin (Nitrostat) 0.4 mg SL Q5MIN PRN PRN Reason: Chest Pain Sertraline HCl (Zoloft) 50 mg PO DAILY [facility] Last Admin: 03/21/19 09:32 Dose: 50 mg Sevelamer Carbonate (Renvela) 1,600 mg PO TID [facility] Last Admin: 03/21/19 14:10 Dose: 1,600 mg Sodium Chloride (Flush - Normal Saline) 10 ml IVF Q12HR [facility] Last Admin: 03/21/19 09:34 Dose: 10 ml Sodium Chloride (Flush - Normal Saline) 10 ml IVF PRN PRN PRN Reason: Saline Flush Last Admin: 03/21/19 15:58 Dose: 10 ml Ticagrelor (Brilinta) 90 mg PO BID [facility] Last Admin: 03/21/19 09:32 Dose: 90 mg
[2019-03-21 17:32] LABS: Anion Gap 18 mmol/L (10-20); BUN (Urea Nitrogen) 45 mg/dL (9.8-20.1); Calc. Creatinine Clearance 13 mL/min (70-130); Calcium 7.6 mg/dL (7.8-10.44); Carbon Dioxide 25 mmol/L (23-31); Chloride 95 mmol/L (98-107); Estimated GFR-MDRD 5; Glucose 87 mg/dL (80-115); Potassium 4.7 mmol/L (3.5-5.1); Sodium 133 mmol/L (136-145)
--- NOTE | 2019-03-21 19:03 | PDOC.CTH ---
Cardiology Progress Note - Subjective No new issues. Dealing with pain from her LE ulcers. Since her LCx stent she states her chest pain has improved significantly. - Objective Vital Signs Temp Pulse Resp BP Pulse Ox 03/21/19 16:00 98 F 78 17 108/46 L 100 03/21/19 13:07 98.2 F 87 19 132/58 L 91 L 03/21/19 09:30 97.5 F L 94 18 123/53 L 97 Admit Weight 256 lb 4.8 oz Weight 256 lb 4.8 oz 03/20/19 03/21/19 03/22/19 06:59 06:59 06:59 Intake Total 864 780 Output Total 50 60 Balance 814 720 - Physical Examination General/Neuro: alert & oriented x3, NAD Neck: no JVD present Lungs: CTA, unlabored respirations Heart: RRR Abdomen: NT/ND Extremities: + edema B (1+) - Telemetry Telemetry Rhythm: NSR - Labs Result Diagrams: 03/20/19 05:43 03/21/19 16:44 Troponin/CKMB CK-MB (CK-2) 11.5 ng/mL (0-6.6) H* 03/18/19 07:37 Troponin I 1.347 ng/mL (< 0.028) H* 03/18/19 07:37 - Assessment/Plan 1. NSTEMI 2. PVD 3. Non healing ulcers. 4. S/P CABG 5. S/P STANLEY to LCx. PLAN: - From cardiac perspective she may be discharged at any point. - She had an AFRO at the same time of her [facility] and it showed severe distal disease with only one vessel run off. Nothing to do from percutaneous stand point. - Continue Brilinta and aspirin. - Continue other meds. - Continue wound care.
[2019-03-21] MEDS: Atorvastatin Calcium 20 MG TAB PO SCH (20:39)
[2019-03-21] MEDS: Amitriptyline HCl 10 MG TAB PO SCH (20:40)
[2019-03-22] MEDS: Lidocaine Patch Removal 1 EACH TOP SCH (04:38)
[2019-03-22] MEDS: Morphine 2 MG/ML SYRINGE SLOW IVP PRN ×4 (04:38→22:22)
[2019-03-22] MEDS: Levothyroxine Sodium 125 MCG TAB PO SCH (04:38)
[2019-03-22 05:45] LABS: #Eosinphils 0.3 thou/uL (0.0-0.7); #Lymphocytes 1.1 thou/uL (1.20-3.40); #Monocytes 0.6 thou/uL (0.11-0.59); %Basophils 0.4 % (0.0-1.0); %Eosinophils 4.4 % (0.0-10.0); %Lymphocytes 14.1 % (21.0-51.0); %Monocytes 6.8 % (0.0-10.0); %Neutrophils 74.4 % (42.0-75.0); Mean Corpuscular HGB CONC 32.8 g/dL (32.0-36.0); Mean Corpuscular Hemoglobin 33.1 pg (27.0-31.0); Mean Platelet Volume 7.7 fL (7.4-10.4); Platelet Count 274 thou/uL (130-400); RBC Distribution Width 13.2 % (11.5-14.5); Red Blood Cell (RBC) Count 2.72 mill/uL (4.20-5.40)
[2019-03-22] MEDS: Docusate 100 MG CAP PO SCH ×2 (09:41→19:34)
[2019-03-22] MEDS: Calcitriol 0.25 MCG CAP PO SCH (09:41)
[2019-03-22] MEDS: Diazepam 5 MG TAB PO SCH (09:41)
[2019-03-22] MEDS: Aspirin Chewable 81 MG TAB PO SCH (09:41)
[2019-03-22] MEDS: Dronedarone HCl 400 MG TAB PO SCH ×2 (09:42→19:33)
[2019-03-22] MEDS: Gabapentin 300 MG CAP PO SCH ×3 (09:42→19:33)
[2019-03-22] MEDS: TICAGRELOR 90 MG TABLET PO SCH ×2 (09:43→19:33)
[2019-03-22] MEDS: Sevelamer Carbonate 800 MG TAB PO SCH ×3 (09:43→19:37)
[2019-03-22] MEDS: HumaLOG 300 UNITS/3 ML VIAL SC PRN (12:47)
--- NOTE | 2019-03-22 14:18 | PDOC.PN ---
- Subjective Encounter Start Date: 03/22/19 Encounter Start Time: 14:17 Subjective: feels Ok. no new complaints - Objective MAR Reviewed: Yes Vital Signs & Weight: Vital Signs (12 hours) Temp Pulse Pulse Pulse Resp BP BP 03/22/19 12:07 99.1 F 80 18 03/22/19 09:52 79 81 116/59 L 126/59 L 03/22/19 07:56 98.2 F 75 18 03/22/19 04:45 78 03/22/19 04:00 97.7 F 71 16 BP BP Pulse Ox Pulse Ox Pulse Ox 03/22/19 12:07 129/60 98 03/22/19 09:52 132/57 L 93 L 91 L 03/22/19 07:56 118/57 L 93 L 03/22/19 04:45 136/60 03/22/19 04:00 123/53 L 95 Weight Admit Weight 256 lb 4.8 oz Weight 256 lb 4.8 oz I&O: 03/21/19 03/22/19 03/23/19 06:59 06:59 06:59 Intake Total 780 Output Total 60 Balance 720 Result Diagrams: 03/22/19 05:08 03/21/19 16:44 Additional Labs: Accuchecks 03/22/19 03/22/19 03/21/19 11:32 06:04 20:40 POC Glucose 177 H 236 H 164 H 03/21/19 16:59 POC Glucose 98 Phys Exam - Physical Examination Constitutional: NAD HEENT: PERRLA, moist MMs, sclera anicteric, oral pharynx no lesions Neck: no nodes, no JVD, supple, full ROM Respiratory: no wheezing, no rales, no rhonchi, clear to auscultation bilateral Cardiovascular: RRR, no significant murmur Gastrointestinal: soft, non-tender, no distention, positive bowel sounds Musculoskeletal: no edema, pulses present open blisters in legs b/l Neurological: non-focal, normal sensation, moves all 4 limbs Psychiatric: normal affect, A&O x 3 Skin: no rash Dx/Plan (1) Type 2 myocardial infarction Code(s): I21.A1 - MYOCARDIAL INFARCTION TYPE 2 Status: Acute Comment: Cardiac Cath 03/18/19 with STANLEY Circumflex.cont ASA,Brilinta.on statin (2) Wound, open, leg Code(s): S81.809A - UNSPECIFIED OPEN WOUND, UNSPECIFIED LOWER LEG, INIT ENCNTR Status: Acute Comment: Lower extremities angiogram done now showing severe diffuse PAD. suspect PAD. Wound care consulted.cont ASA,Brilinta,Statin. (3) Paroxysmal atrial fibrillation Code(s): I48.0 - PAROXYSMAL ATRIAL FIBRILLATION Status: Chronic Comment: NSR for now. monitor.restart Multaq. Not on any OAC per her [employer] Salesperson Dr. Blandon (4) CAD (coronary artery disease) Code(s): I25.10 - ATHSCL HEART DISEASE OF [place] CORONARY ARTERY W/O ANG PCTRS Status: Chronic Comment: Restarted ASA ,statin after Cath .Reconcile home meds. Add BB and GRACE-I/ARB if BP allows (5) DM2 (diabetes mellitus, type 2) Status: Chronic Comment: ISS w Accuchecks (6) HTN (hypertension) Code(s): I10 - ESSENTIAL (PRIMARY) HYPERTENSION Status: Chronic (7) ESRD (end stage renal disease) on dialysis Code(s): N18.6 - END STAGE RENAL DISEASE; Z99.2 - DEPENDENCE ON RENAL DIALYSIS Status: Chronic Comment: Cont PD in house. daily labs (8) SMA stenosis Code(s): I77.1 - STRICTURE OF ARTERY Status: Chronic Comment: suspect chronic as Pt asymptomatic.ASA and statin. (9) Pacemaker Code(s): Z95.0 - PRESENCE OF CARDIAC PACEMAKER Status: Chronic - Plan DVT proph w/SCDs discussed w cardiology.PAD too distal.not surgically amenable -: cont medical management -: Dc when accpeted at Rehab -: HD stable * . Review of Systems - Review of Systems Constitutional: weakness. negative: fever, chills, sweats, malaise, other ENT: negative: Ear Pain, Ear Discharge, Nose Pain, Nose Discharge, Nose Congestion, Mouth Pain, Mouth Swelling, Throat Pain, Throat Swelling, Other Respiratory: negative: Cough, Dry, Shortness of Breath, Hemoptysis, SOB with Excertion, Pleuritic Pain, Sputum, Wheezing Cardiovascular: negative: chest pain, palpitations, orthopnea, paroxysmal nocturnal dyspnea, edema, light headedness, other Gastrointestinal: negative: Nausea, Vomiting, Abdominal Pain, Diarrhea, Constipation, Melena, Hematochezia, Other Genitourinary: negative: Dysuria, Frequency, Incontinence, Hematuria, Retention , Other Musculoskeletal: Leg Pain. negative: Neck Pain, Shoulder Pain, Arm Pain, Back Pain, Hand Pain, Foot Pain, Other Neurological: negative: Weakness, Numbness, Incoordination, Change in Speech, Confusion, Seizures, Other - Medications/Allergies Allergies/Adverse Reactions: Allergies Allergy/AdvReac Type Severity Reaction Status Date / Time meperidine [From Demerol] Allergy Verified 03/17/19 12:39 Penicillins Allergy Verified 03/17/19 12:39 Medications: Current Medications Acetaminophen (Tylenol) 650 mg PO Q4H PRN PRN Reason: Headache/Fever/Mild Pain (1-3) Last Admin: 03/19/19 15:16 Dose: 650 mg Hydrocodone Bitart/Acetaminophen ([place] 5/325) 1 tab PO Q6H PRN PRN Reason: Moderate Pain (4-6) Last Admin: 03/20/19 12:27 Dose: 1 tab Al Hydroxide/Mg Hydroxide (Maalox) 30 ml PO Q6H PRN PRN Reason: Heartburn or Indigestion Last Admin: 03/20/19 23:59 Dose: 30 ml Amitriptyline HCl (Elavil) 10 mg PO HS [facility] Last Admin: 03/21/19 20:40 Dose: 10 mg Aspirin (Aspirin Chewable) 81 mg PO DAILY [facility] Last Admin: 03/22/19 09:41 Dose: 81 mg Atorvastatin Calcium (Lipitor) 20 mg PO HS [facility] Last Admin: 03/21/19 20:39 Dose: 20 mg Calcitriol (Rocaltrol) 0.5 mcg PO DAILY [facility] Last Admin: 03/22/19 09:41 Dose: 0.5 mcg Dextrose/Water (Dextrose 50%) 25 gm IVP PRN PRN PRN Reason: HYPOGLYCEMIA PROTOCOL Diazepam (Valium) 15 mg PO DAILY [facility] Last Admin: 03/22/19 09:41 Dose: 15 mg Docusate Sodium (Colace) 100 mg PO BID [facility] Last Admin: 03/22/19 09:41 Dose: 100 mg Dronedarone (Multaq) 400 mg PO BID [facility] Last Admin: 03/22/19 09:42 Dose: 400 mg Gabapentin (Neurontin) 300 mg PO TID [facility] Last Admin: 05/14/19 09:42 Dose: 300 mg Glucagon (Glucagon) 1 mg IM PRN PRN PRN Reason: HYPOGLYCEMIA PROTOCOL Dextrose/Water (D5w) 1,000 mls @ 0 mls/hr IV INF PRN PRN Reason: HYPOGLYCEMIA PROTOCOL Insulin Human Lispro (Humalog) 0 units SC .MILD SLIDING SCALE PRN; Protocol PRN Reason: MILD SLIDING SCALE Last Admin: 03/22/19 12:47 Dose: 2 unit Levothyroxine Sodium (Synthroid) 125 mcg PO 0600 [facility] Last Admin: 03/22/19 04:38 Dose: 125 mcg Lidocaine (Lidoderm 5% Patch) 2 patch TD 1400 [facility] Last Admin: 03/21/19 14:09 Dose: 2 patch Miscellaneous Medication (Lidocaine Patch Removal) 2 each TOP 0200 [facility] Last Admin: 03/22/19 04:38 Dose: 2 each Morphine Sulfate (Morphine) 2 mg SLOW IVP Q4H PRN PRN Reason: Pain Last Admin: 03/22/19 12:11 Dose: 2 mg Nitroglycerin (Nitrostat) 0.4 mg SL Q5MIN PRN PRN Reason: Chest Pain Sertraline HCl (Zoloft) 50 mg PO DAILY [facility] Last Admin: 03/22/19 09:42 Dose: 50 mg Sevelamer Carbonate (Renvela) 1,600 mg PO TID [facility] Last Admin: 03/22/19 09:43 Dose: 1,600 mg Sodium Chloride (Flush - Normal Saline) 10 ml IVF Q12HR [facility] Last Admin: 03/22/19 09:43 Dose: 10 ml Sodium Chloride (Flush - Normal Saline) 10 ml IVF PRN PRN PRN Reason: Saline Flush Last Admin: 03/22/19 12:11 Dose: 10 ml Ticagrelor (Brilinta) 90 mg PO BID [facility] Last Admin: 03/22/19 09:43 Dose: 90 mg
[2019-03-22] MEDS: Lidocaine 5% Patch TD SCH (14:35)
--- NOTE | 2019-03-22 14:59 | PRG ---
DATE OF SERVICE: 03/22/2019 SUBJECTIVE: Patient was seen and examined at bedside and overnight events noted. Patient denies any shortness of breath or chest pain or palpitation. No history of nausea or vomiting or diarrhea or fever or chills or cramps. OBJECTIVE: GENERAL: This is a morbidly obese female, in no apparent distress. VITAL SIGNS: Temperature . Heart rate 80. Respiratory rate . Blood pressure 113/60. HEENT: Atraumatic, normocephalic. Oral mucosa is moist NECK: Supple. CARDIOVASCULAR: S1, S2 heard. Rate and rhythm regular. RESPIRATORY: Clear to auscultation. GASTROINTESTINAL: Abdomen is soft. MUSCULOSKELETAL: No tenderness. No edema. DERMATOLOGIC: No skin rash. NEUROLOGIC: Alert and awake and oriented X3. No focal neurologic deficits. Moving all the extremities. PSYCHIATRIC: Mood and affect normal. LABORATORY DATA: Not done today. ASSESSMENT AND PLAN: 1. End-stage renal disease, currently on peritoneal dialysis as tolerated. 2. Hypertension. 3. Anemia. 4. Edema. 5. Hyponatremia. Limit fluid intake. Plan to continue on the peritoneal dialysis as tolerated. Job ID: [id number]
--- NOTE | 2019-03-22 17:58 | PDOC.CTH ---
Cardiology Progress Note - Subjective No new issues. No new concerns. Still having leg pains. - Objective Vital Signs Temp Pulse Pulse Pulse Resp BP BP 03/22/19 15:36 98.4 F 74 20 03/22/19 12:07 99.1 F 80 18 03/22/19 09:52 79 81 116/59 L 126/59 L 03/22/19 07:56 98.2 F 75 18 BP BP Pulse Ox Pulse Ox Pulse Ox 03/22/19 15:36 119/56 L 96 03/22/19 12:07 129/60 98 03/22/19 09:52 132/57 L 93 L 91 L 03/22/19 07:56 118/57 L 93 L Admit Weight 256 lb 4.8 oz Weight 256 lb 4.8 oz 03/21/19 03/22/19 03/23/19 06:59 06:59 06:59 Intake Total 780 Output Total 60 Balance 720 - Physical Examination General/Neuro: alert & oriented x3, NAD Neck: no JVD present Lungs: CTA, unlabored respirations Heart: RRR Abdomen: NT/ND Extremities: + edema B (1+) - Telemetry Telemetry Rhythm: NSR - Labs Result Diagrams: 03/22/19 05:08 03/21/19 16:44 Troponin/CKMB CK-MB (CK-2) 11.5 ng/mL (0-6.6) H* 03/18/19 07:37 Troponin I 1.347 ng/mL (< 0.028) H* 03/18/19 07:37 - Assessment/Plan 1. NSTEMI 2. PVD 3. Non healing ulcers. 4. S/P CABG and MV ring. 5. S/P STANLEY to LCx. 6. ESRD on PD. PLAN: - From cardiac perspective she may be discharged at any point. - I again reviewed the epripheral angiography inlight if having findings on CT angio look like we can help on both SFA's and this is not the case, she has widely patent bilateral SFA's but severe distal disease. Actually has very brisk flow on both SFA's. - Continue Brilinta and aspirin. - Continue other meds. - Continue wound care.
[2019-03-22] MEDS: Amitriptyline HCl 10 MG TAB PO SCH (19:33)
[2019-03-22] MEDS: Atorvastatin Calcium 20 MG TAB PO SCH (19:33)
[2019-03-23] MEDS: Lidocaine Patch Removal 1 EACH TOP SCH (03:21)
[2019-03-23] MEDS: Morphine 2 MG/ML SYRINGE SLOW IVP PRN ×2 (03:21→08:59)
[2019-03-23] MEDS: Levothyroxine Sodium 125 MCG TAB PO SCH (05:22)
[2019-03-23] MEDS: Diazepam 5 MG TAB PO SCH (09:01)
[2019-03-23] MEDS: Calcitriol 0.25 MCG CAP PO SCH (09:01)
[2019-03-23] MEDS: Sevelamer Carbonate 800 MG TAB PO SCH ×2 (09:01→14:50)
[2019-03-23] MEDS: Docusate 100 MG CAP PO SCH (09:01)
[2019-03-23] MEDS: Gabapentin 300 MG CAP PO SCH ×2 (09:01→14:50)
[2019-03-23] MEDS: TICAGRELOR 90 MG TABLET PO SCH (09:01)
[2019-03-23] MEDS: Dronedarone HCl 400 MG TAB PO SCH (09:02)
[2019-03-23] MEDS: Aspirin Chewable 81 MG TAB PO SCH (09:02)
[2019-03-23] MEDS: HumaLOG 300 UNITS/3 ML VIAL SC PRN (09:07)
[2019-03-23] MEDS: Lidocaine 5% Patch TD SCH (14:30)
--- NOTE | 2019-03-23 14:55 | EKG ---
Test Reason : POST STENT Blood Pressure : / mmHG Vent. Rate : 075 BPM Atrial Rate : 077 BPM P-R Int : 000 ms QRS Dur : 162 ms QT Int : 482 ms P-R-T Axes : 000 148 008 degrees QTc Int : 538 ms Unusual P axis, possible ectopic atrial rhythm Right bundle branch block Prolonged QT Abnormal ECG Confirmed by BHAVNA LYNN ([id number]) on 03/23/2019 2:54:28 PM Referred By: MONSERRAT Confirmed By:BHAVNA LYNN
[2019-03-23 14:59] VITALS: BP 110/51; TEMP 98.3
--- NOTE | 2019-03-23 15:04 | EKG ---
Test Reason : A.M. Blood Pressure : / mmHG Vent. Rate : 080 BPM Atrial Rate : 081 BPM P-R Int : 000 ms QRS Dur : 162 ms QT Int : 464 ms P-R-T Axes : 000 155 004 degrees QTc Int : 535 ms Atrial fibrillation Right bundle branch block Abnormal ECG Confirmed by BHAVNA LYNN ([id number]) on 03/23/2019 3:03:48 PM Referred By: MONSERRAT Confirmed By:BHAVNA LYNN
--- NOTE | 2019-03-23 15:38 | PRG ---
DATE OF SERVICE: 03/23/2019 SUBJECTIVE: Patient was seen and examined at bedside and overnight events noted. Patient denies any shortness of breath or chest pain or palpitation. No history of nausea or vomiting or diarrhea or fever or chills or cramps. OBJECTIVE: GENERAL: This is an obese female, in no apparent distress. VITAL SIGNS: Temperature 98.3. Heart rate 80. Respiratory rate . Blood pressure HEENT: Atraumatic, normocephalic. Oral mucosa is moist NECK: Supple. CARDIOVASCULAR: S1, S2 heard. Rate and rhythm regular. RESPIRATORY: Clear to auscultation. GASTROINTESTINAL: Abdomen is soft. MUSCULOSKELETAL: No tenderness. No edema. DERMATOLOGIC: No skin rash. NEUROLOGIC: Alert and awake and oriented X3. No focal neurologic deficits. Moving all the extremities. PSYCHIATRIC: Mood and affect normal. LABORATORY DATA: Not done today. ASSESSMENT: 1. End-stage renal disease. Continue on peritoneal dialysis. 2. Hypertension. 3. Anemia. 4. Edema. 5. Hyponatremia. Limit fluid intake. Continue on peritoneal dialysis as tolerated. Job ID: [id number]
--- NOTE | 2019-03-24 06:15 | DIS ---
DATE OF ADMISSION: 03/17/2019 DATE OF DISCHARGE: 03/23/2019 CONDITION: At the time of discharge, stable and improved. DISCHARGE DISPOSITION: [facility]. PRIMARY CARE PHYSICIAN: Dr. Sujey Mota. PRIMARY CNC LATHE MACHINE OPERATOR: Dr. Von Blandon. DISCHARGE DIAGNOSES: 1. Type 2 myocardial infarction. 2. Open blisters and wounds on the legs, likely vascular ulcers. 3. Paroxysmal atrial fibrillation. 4. Coronary artery disease. 5. Diabetes mellitus type 2. 6. Hypertension. 7. End-stage renal disease, on hemodialysis. 8. 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 9. Pacemaker in place. DISCHARGE MEDICATIONS: As follows, Amiodarone dose has been reduced from 400 mg p.o. b.i.d. to 200 mg p.o. daily. New medications, 1. Brilinta 90 mg p.o. b.i.d. 2. Lipitor 20 mg daily. 3. Aspirin 81 mg daily. Resume home medications as follows: 1. NovoLog 5 mg t.i.d. 2. Nitroglycerin sublingual as needed. 3. Levemir 28 units daily. 4. Neurontin 300 mg p.o. t.i.d. 5. Colace 100 mg p.o. b.i.d. 6. Calcitriol 0.5 mcg daily. 7. Elavil 10 mg daily. 8. Sertraline 50 mg daily. 9. Valium 15 mg daily. 10. Renvela two tablets p.o. t.i.d. 11. Levothyroxine 125 mcg daily. IN-HOUSE CONSULTATIONS: 1. Nephrology, Heather Burkett and Brandi. 2. Cardiology, Dr. Max. PROCEDURES DONE IN HOSPITAL: 1. X-ray of the right leg for pain, which is negative for any acute osseous abnormalities. 2. Cardiac catheterization which shows severe proximal LAD and severe proximal left circumflex disease with patent MERCADO to LAD and patent stent to proximal RCA. She underwent PCI to the ostial left circumflex with a drug-eluting stent. EF was normal. 3. CT with aortic dissection protocol of chest and abdomen. There is no evidence of aortic dissection, aneurysm, but high-grade stenosis of the superior mesenteric artery. 4. Aorta angiogram with runoff CT angio. It shows extensive atherosclerosis disease and significant narrowing of left lower extremity arterial system bilaterally. The occlusions were more so in the distal smaller branches. HISTORY OF PRESENTING ILLNESS: Ms. Pandya is a 63-year-old female with known history of coronary artery disease, atrial fibrillation, pacemaker placement, hypothyroidism, diabetes, hypertension, end-stage renal disease, who presented to the emergency room with complaints of sharp retrosternal chest pain radiating to her back, accompanied by shortness of breath and nausea. She was found to have troponin in the indeterminate range of 0.299 with mildly elevated BNP at 209. Her chest x-ray showed cardiomegaly and vascular engorgement and EKG showed no acute ST or T-wave changes. She was admitted for further evaluation of chest pain. Please see admission history and physical dictated by Dr. Chong Alcaraz on 03/17/2019. HOSPITAL COURSE: The patient's cardiac enzymes were trended and her troponin bumped up from 0.299 to 0.318 and then 1.347. Cardiology was consulted. Dr. Max saw the patient and given her extensive history of coronary artery disease, he recommended a cardiac catheterization. Because the patient was also found to have bilateral lower extremity ulcers, a CT angio of the lower extremity was also planned. The patient also was complaining of abdominal pain, so a CT dissection protocol was done, which showed high-grade superior mesenteric artery occlusion. Cardiac catheterization showed patent stents from MERCADO to LAD and patent stent to proximal RCA. She had severe proximal left circumflex disease and underwent placement of drug-eluting stent to the ostial left circumflex. She was started on aspirin and Brilinta for these. An aortic angiogram with runoff to lower extremities was done which showed severe distal small vessel disease. According to Cardiology, this was not amenable for surgery and medical management in the form of aspirin, statin, and Brilinta was initiated. With regard to her wound, Wound Care was started and they were following the patient along. The patient had significant claudication pain which more or less remained uncontrolled throughout the hospitalization. She continued to get peritoneal dialysis and Nephrology was consulted with regard to that. Renal function was monitored and she did not have any evidence of acute worsening and it remained stable. After the Cardiology has cleared the patient for discharge, rehab evaluation was done and the patient was found appropriate for same. She was accepted and will be discharged today. I have seen and examined the patient prior to discharge. PHYSICAL EXAMINATION: VITAL SIGNS: This morning, vital signs; temperature 98.5, pulse of 79, respirations 18, saturating 94% on room air, and blood pressure 116/55. GENERAL: No acute distress. Awake, alert, and oriented x3. She does appear somewhat uncomfortable because of leg pain and somnolent. She has just received some pain medications. CHEST: Clear to auscultation bilaterally. HEART: Rate and rhythm is regular. ABDOMEN: Obese. Peritoneal dialysis catheter in place. DISCHARGE LABORATORY DATA: BUN 45, creatinine 7.90. As above, the patient has been started on aspirin, statin, and Brilinta for severe peripheral arterial disease and Multaq dose has been reduced from 400 mg p.o. b.i.d. to 200 mg daily. She needs to follow up with her primary dry ice maker, Dr. Blandon in regard to this. She reports that she was taken off blood thinner medications by Dr. Blandon. I am not sure if she would be a good candidate to restart it or not at this time given the fact that she is also on Brilinta now. She will discuss this further with her dry ice maker. TIME SPENT: Total time spent in the discharge 36 minutes. Job ID: [id number]
== END 2019-03-23 17:44 | DRG 246 ==
LOC: EDBD 07:35 → ERS 07:35 → ERHOLD 10:07 → 2SE 15:07 → 2NO 03-20 21:43
PROVIDERS: ADMIT Internal Medicine; ATTEND Internal Medicine
PROC: 027034Z Dilation of Coronary Artery, One Artery with Drug-eluting Intraluminal Device, Percutaneous Approach (ICD-10-PCS; principal; 2019-03-17)
PROC: 4A023N7 Measurement of Cardiac Sampling and Pressure, Left Heart, Percutaneous Approach (ICD-10-PCS; 2019-03-17)
PROC: B2111ZZ Fluoroscopy of Multiple Coronary Arteries using Low Osmolar Contrast (ICD-10-PCS; 2019-03-17)
PROC: B2151ZZ Fluoroscopy of Left Heart using Low Osmolar Contrast (ICD-10-PCS; 2019-03-17)
DX: I21.A1 Myocardial infarction type 2 (principal); N18.6 End stage renal disease; I12.0 Hypertensive chronic kidney disease with stage 5 chronic kidney disease or end stage renal disease; K55.1 Chronic vascular disorders of intestine; E87.1 Hypo-osmolality and hyponatremia; I25.10 Atherosclerotic heart disease of native coronary artery without angina pectoris; I48.0 Paroxysmal atrial fibrillation; D63.1 Anemia in chronic kidney disease; E11.621 Type 2 diabetes mellitus with foot ulcer; L97.509 Non-pressure chronic ulcer of other part of unspecified foot with unspecified severity; E11.22 Type 2 diabetes mellitus with diabetic chronic kidney disease; E03.9 Hypothyroidism, unspecified; Z99.2 Dependence on renal dialysis; Z95.1 Presence of aortocoronary bypass graft; Z88.0 Allergy status to penicillin; Z90.49 Acquired absence of other specified parts of digestive tract; Z90.710 Acquired absence of both cervix and uterus
CPT/HCPCS: 36246; 36415; 36416; 71045; 71275; 75635; 75716; 80048; 80053; 82553; 83880; 84484; 85025; 85347; 90945; 92928; 93005; 93010; 93459; 93798; 96365; 96375; 99152; 99153; C1769; C1874; C9600; G0257; J0282; J0696; J1644; J2250; J2270; J3010; J3490; J7070; Q9966; Q9967

== ENCOUNTER 2019-03-26 07:33 | Inpatient (IN) | payer MEDICARE ==
[2019-03-26 08:22] LABS: #Eosinphils 0.4 thou/uL (0.0-0.7); #Lymphocytes 0.9 thou/uL (1.20-3.40); #Monocytes 0.9 thou/uL (0.11-0.59); #Neutrophils 9.1 thou/uL (1.40-6.50); %Eosinophils 3.8 % (0.0-10.0); %Lymphocytes 8.2 % (21.0-51.0); %Monocytes 8.1 % (0.0-10.0); %Neutrophils 79.9 % (42.0-75.0); Hemoglobin 7.5 g/dL (12.0-16.0); Mean Corpuscular HGB CONC 31.7 g/dL (32.0-36.0); Mean Corpuscular Hemoglobin 32.2 pg (27.0-31.0); Mean Platelet Volume 7.4 fL (7.4-10.4); Platelet Count 334 thou/uL (130-400); RBC Distribution Width 13.5 % (11.5-14.5); Red Blood Cell (RBC) Count 2.32 mill/uL (4.20-5.40); White Blood Cell (WBC) Count 11.4 thou/uL (4.8-10.8)
[2019-03-26 08:44] LABS: ALT (SGPT) 9 U/L (8-55); AST (SGOT) 16 U/L (5-34); Albumin 2.9 g/dL (3.4-4.8); Alkaline Phosphatase 108 U/L (40-150); Anion Gap 16 mmol/L (10-20); BUN (Urea Nitrogen) 48 mg/dL (9.8-20.1); Bilirubin, Total 0.4 mg/dL (0.2-1.2); Calc. Creatinine Clearance 0 mL/min (70-130); Calcium 8.4 mg/dL (7.8-10.44); Carbon Dioxide 29 mmol/L (23-31); Chloride 93 mmol/L (98-107); Estimated GFR-MDRD 6; Globulin 3.3 g/dL (2.4-3.5); Glucose 141 mg/dL (80-115); Iron 68 ug/dL (50-170); Iron Binding Capacity, Total 158 mcg/dL (265-497); Potassium 4.2 mmol/L (3.5-5.1); Protein, Total 6.2 g/dL (6.0-8.3); Sodium 134 mmol/L (136-145)
[2019-03-26] MEDS ORDERED: Morphine 4 MG/ML VIAL ONE (09:32)
[2019-03-26] MEDS ORDERED: Pantoprazole 80 MG, Admixture Fee 1 EACH in Sodium Chloride 0.9% 100 ML IVPB SCH (09:45)
--- NOTE | 2019-03-26 10:33 | CT ---
CT abdomen and pelvis with IV contrast. Oral contrast was not administered. INDICATIONS: Abdominal pain. Hematochezia. Diarrhea. COMPARISON: CT abdomen pelvis 03/19/2019 FINDINGS: Lung bases are clear Small amount of free ascitic fluid seen around the liver and spleen margins and into the pelvis. This appears stable. Liver, spleen, and pancreas appear unremarkable. Stomach and duodenum appear unremarkable. Adrenal glands appear normal. Kidneys show no evidence of hydronephrosis. Tiny cystic lesion superior left kidney again noted. Uret ers normal caliber. Urinary bladder is filled with excreted contrast. Pelvic structures are poorly evaluated due to artifact from left hip prosthesis. Small bowel loops are normal caliber and exhibit normal fold pattern. Appendix not identified. Colon is unremarkable. Aorta is normal caliber. No evidence of retroperitoneal or mesenteric adenopathy. Haziness in the subcutaneous adipose tissue may represent mild edema. Postoperative changes in the lumbar spine with pedicle screws. Degenerative changes. IMPRESSION: Small volume ascites. No acute intra-abdominal process. No significant change from recent exam.
[2019-03-26 10:37] LABS: INR-International Normal Ratio 1.3; PTT 38.2 SEC (22.9-36.1); Prothrombin Time 16.5 SEC (12.0-14.7)
[2019-03-26] MEDS ORDERED: Ondansetron ODT 4 MG TAB SL PRN (11:00)
[2019-03-26] MEDS ORDERED: Ondansetron PF 4 MG/2 ML Vial IVP PRN (11:00)
[2019-03-26] MEDS ORDERED: Acetaminophen 325 MG TAB PO PRN (11:00)
[2019-03-26] MEDS ORDERED: ISOVUE-370 76%-LOCM 1 ML ONE (11:10)
--- NOTE | 2019-03-26 11:14 | CON ---
DATE OF CONSULTATION: REASON FOR CONSULTATION: Stage 6 chronic kidney disease for maintenance peritoneal dialysis. HISTORY OF PRESENT ILLNESS: This is a very pleasant 63-year-old female, who presented to the hospital after noted to have dropping hemoglobin and melena. The patient denies no chest pain. No orthopnea. No PND. Denies any nausea, vomiting, or chest pain. PAST MEDICAL HISTORY: Significant for end-stage kidney disease, hypertension, anemia, peripheral vascular disease, cholecystectomy, hysterectomy, left hip surgery, and noncompliance. MEDICATIONS: Home medications list reviewed. Hospital medication list reviewed. ALLERGIES: REVIEWED. REVIEW OF SYSTEMS: A 15-point review of systems was performed, negative except for positives noted above. GENERAL APPEARANCE AND MENTAL STATUS: Fair. HEAD/NECK: Normocephalic. Atraumatic. EYES: EOMI. No deformity. EARS: Clear. No ulcers. NOSE: Intact. No lesions. MOUTH: Clear. No discharge. THROAT: Clear. No exudate. LUNGS: Clear. No crackles. CARDIAC: S1, S2. No rub. ABDOMEN: Benign. Bowel sounds positive. GENITALIA/RECTUM: Steiner absent. BACK/EXTREMITIES: Edema 0+. NEUROLOGICAL: Alert and motor intact. SKIN: LYMPHATICS: PHYSICAL EXAMINATION: GENERAL: The patient is awake and alert. VITAL SIGNS: Afebrile, pulse 75, breathing 16, and blood pressure 160/70. GENERAL APPEARANCE AND MENTAL STATUS: Fair. HEAD/NECK: Normocephalic. Atraumatic. EYES: EOMI. No deformity. EARS: Clear. No ulcers. NOSE: Intact. No lesions. MOUTH: Clear. No discharge. THROAT: Clear. No exudate. LUNGS: Clear. No crackles. CARDIAC: S1, S2. No rub. ABDOMEN: Benign. Bowel sounds positive. GENITALIA/RECTUM: Steiner absent. BACK/EXTREMITIES: Edema 0+. Skin ulcers. NEUROLOGICAL: Alert and motor intact. SKIN: LYMPHATICS: LABORATORY DATA: Reviewed. ASSESSMENT AND PLAN: 1. Stage 6 chronic kidney disease. Continue peritoneal dialysis. 2. Anemia. We would recommend transfusion. 3. Hyperkalemia, stable. 4. Medication based on GFR appropriate. Job ID: [id number]
[2019-03-26 13:56] VITALS: BMI 43.9
[2019-03-26] MEDS ORDERED: Dextrose 50% Abboject 50 ML SYRINGE SLOW IVP PRN (14:25)
[2019-03-26] MEDS ORDERED: Dextrose 5% in Water 1,000 ML IV PRN (14:25)
[2019-03-26] MEDS ORDERED: Sevelamer Carbonate 800 MG TAB PO SCH ×2 (15:00)
--- NOTE | 2019-03-26 16:15 | HP ---
CHIEF COMPLAINT: Lower GI bleed. HISTORY OF PRESENT ILLNESS: The patient is a 63-year-old female who was most recently admitted here on 03/17/2019. The patient developed significant edema per her report and resulted in some skin breakdown on the posterior aspects of her distal calves around the Achilles areas. This did not resolve once the edema had resolved during that hospitalization, and the patient also had chest pain symptoms requiring heart catheterization and stent of her circumflex with a drug-eluting stent. She was subsequently placed on Brilinta and aspirin and discharged to the rehab unit with severe peripheral vascular disease and claudication symptoms. The patient reports for the last 3 days she has had bowel movements which have been bright red blood and liquid in nature. Ultimately, today she presented to the emergency department. REVIEW OF SYSTEMS: The patient has some pain related to the ulcers on her legs. Otherwise, all systems reviewed and all pertinent positives and negatives noted in the history of present illness. Specifically, the patient denies any ongoing chest pain or fevers or chills. PAST MEDICAL HISTORY: Notable for coronary artery disease, post bypass grafting and stent; atrial fibrillation, pacemaker placement; hypothyroidism; diabetes mellitus type 2; hypertension; end-stage renal disease, on peritoneal dialysis. PAST SURGICAL HISTORY: As above. In addition, she has a dialysis shunt in the right upper extremity, peritoneal dialysis catheter placement in the right lower quadrant, and history of hysterectomy. FAMILY HISTORY: No history of coronary artery disease. SOCIAL HISTORY: The patient is a nonsmoker, nondrinker, and nondrug user. She is full code, and her sister, Nancy, would be her surrogate decision maker should that become necessary. ALLERGIES: DEMEROL AND PENICILLIN. CURRENT MEDICATIONS: 1. Brilinta 90 mg b.i.d. 2. Tylenol 650 q.4 p.r.n. 3. Calcitriol 0.5 mcg p.o. daily. 4. Lipitor 20 mg at bedtime. 5. Aspirin 81 mg daily. 6. Elavil 10 mg at bedtime. 7. Amiodarone 200 mg daily. 8. Maalox p.r.n. 9. Sertraline 50 mg daily. 10. Levemir 28 units subcu daily. 11. NovoLog 5 units t.i.d. 12. [place] 5/325 p.r.n. 13. Neurontin 300 mg t.i.d. 14. Colace 100 mg b.i.d. 15. Valium 15 mg p.o. daily. 16. Renvela 2 tabs p.o. t.i.d. 17. Nitrostat 0.3 mg subcu q.5 minutes p.r.n. 18. Levothyroxine 125 mcg p.o. daily. PHYSICAL EXAMINATION: VITAL SIGNS: BP was 115/58 up to 158/59, pulse 77, respirations 17, temperature 98.5, O2 saturation 93% on room air. GENERAL APPEARANCE: An obese age-appropriate female. She is in no distress. She appears to be slightly sedated. HEENT: Pupils are constricted and minimally reactive. Extraocular movements are slow, but intact. No OP lesions. NECK: Supple and symmetric. HEART: Regular with 2/6 murmur at the right upper sternal border. No rubs. LUNGS: Clear bilaterally with slightly decreased breath sounds at the bases. ABDOMEN: Soft, nontender, and nondistended. Positive bowel sounds. EXTREMITIES: There is no edema. She has chronic stasis dermatitis and erythema with scaling of the skin. She has a large deep eschar linearly running along the proximal Achilles tendon to the calf area. There is a similar lesion on the left side. The tip of the right second toe is black and necrotic as well. Pulses were not palpable. LABORATORY DATA: White count 11.4, hemoglobin 7.5, platelets 334. INR 1.3, PTT 38.2. Sodium 134, potassium 4.2, chloride 93, CO2 of 29, BUN 48, creatinine 7.36, glucose 141. Iron 68, TIBC 158, ferritin is 2095. LFTs normal. Albumin 2.9. DIAGNOSTIC DATA: CT of abdomen and pelvis shows small volume ascites, otherwise unremarkable. IMPRESSION AND PLAN: 1. Lower gastrointestinal bleed in a patient on dual anti-platelet therapy with Brilinta and aspirin. We will hold the Brilinta and aspirin after discussing with Cardiology and keep her on 75 mg Plavix daily. GI is consulted, although truly likely very little that can be done at this point from a GI perspective. 2. Acute blood loss anemia from gastrointestinal bleed. Her hemoglobin from her previous admission was in the 9 to 9.4 range, now at 7.1 this morning and 7.5 on repeat. We will transfuse and continue to monitor. 3. Coronary artery disease, status post drug-eluting stent in the circumflex. Now changing her antiplatelet therapy from Brilinta and aspirin to Plavix. Discussed with Dr. Max. We will consult him, and he will see the patient today. 4. End-stage renal disease, on dialysis. She has already been seen in consultation by Dr. Burkett. We will continue dialysis per his recommendations. 5. Diabetes mellitus. Accu-Cheks, sliding scale, resume her usual home regimen. 6. Severe peripheral vascular disease, deemed to be noninterventional candidate. She has unfortunately some significant wounds on her legs. We will have wound care follow. 7. Vascular ulcers. Wound care consult. 8. The patient is on amiodarone. It looks like she might have been on Multaq at her previous admission, but unclear of the etiology or the underlying disease process necessitating these. No evidence that she had atrial fibrillation previously. 9. Hypothyroidism. Continue with her levothyroxine. Job ID: [id number]
[2019-03-26] MEDS: Gabapentin 300 MG CAP PO SCH ×2 (17:09→20:11)
[2019-03-26] MEDS: HYDROcodone/Acetaminophen 5/325 mg Tablet PO PRN (18:06)
--- NOTE | 2019-03-26 19:28 | CON ---
DATE OF CONSULTATION: 03/26/2019 REASON FOR CONSULTATION: GI bleed, recent stenting. HISTORY OF PRESENT ILLNESS: Ms. Pandya is a pleasant 63-year-old white female, who comes to the hospital for having had a bloody bowel movement in the last 3 days. She was in the hospital just about a week or two ago with complaints of chest pain and [id number]-PL-[id number] HI. At that point, she had a heart catheterization, that showed severe left circumflex lesion. This was stented successfully with a drug-coated stent. She was started on Brilinta and aspirin. She eventually stayed in the hospital for few more days as she was having nonhealing ulcers and she was discharged home to a [facility] facility. She developed bright-red blood per rectum within the next 3 days and had to come back in. Her hemoglobin was down to 7.5, even lower now at 7.0. She denies any chest pain, tightness, or pressure. PAST MEDICAL HISTORY: 1. Coronary artery disease, status post bypass and most recently stenting to the LAD. 2. End-stage renal disease, on peritoneal dialysis. 3. Paroxysmal atrial fibrillation. 4. History of pacemaker placement. 5. Hypothyroidism. 6. Type-2 diabetes. 7. Hypertension. PAST SURGICAL HISTORY: 1. Dialysis fistula in right upper extremity. 2. Peritoneal dialysis catheter in right lower quadrant. 3. Hysterectomy. 4. Heart catheterization with stenting in 2004 and again in recently about a week or two ago in 2019. FAMILY HISTORY: No early coronary artery disease. SOCIAL HISTORY: No alcohol, tobacco, or drugs. OUTPATIENT MEDICATIONS: Include; 1. Brilinta 90 mg b.i.d. 2. Tylenol p.r.n. 3. Calcitriol. 4. Lipitor 10 mg at bedtime. 5. Aspirin 81 a day. 6. Amitriptyline. 7. Amiodarone 200 mg a day. 8. Maalox p.r.n. 9. Sertraline. 10. Levemir. 11. NovoLog. 12. [place] p.r.n. 13. Neurontin. 14. Colace. 15. Valium. 16. Renvela. 17. Nitroglycerin sublingual. 18. Levothyroxine 125 mcg a day. ALLERGIES: IODINE, MEPERIDINE (DEMEROL), AND PENICILLINS. REVIEW OF SYSTEMS: A 12-point review of systems was done and was all negative unless stated in the history of present illness. PHYSICAL EXAMINATION: VITAL SIGNS: Temperature 97.7, pulse 74, respiratory rate 16, saturating 93% on room air, and blood pressure 96/59. GENERAL: Awake, alert, oriented x3, in no distress. HEENT: Normocephalic, atraumatic. NECK: Supple. LUNGS: Clear. CARDIOVASCULAR: S1 and S2. No S3 or S4. No murmurs. ABDOMEN: Soft. Positive bowel sounds. EXTREMITIES: 1+ edema. SKIN: Warm and dry. LABORATORY DATA: Laboratory work was reviewed. CBC with a white count of 11; hemoglobin 7.5, down to 7.0; platelet count of 334. Coags with an INR of 1.3. Chemistry; sodium 134, potassium is 4.2, anion gap of 16, BUN and creatinine are high, GFR of 6, glucose of 141, TIBC of 158, ferritin of 2095. AST, ALT, and alkaline phosphatase are normal. Total bilirubin is normal. Albumin is 2.9. ASSESSMENT: 1. Lower GI bleed, acute. 2. Coronary artery disease, status post drug-eluting stenting to the left circumflex just 2 weeks ago. 3. End-stage renal disease. 4. Paroxysmal atrial fibrillation. PLAN: 1. Continue to hold both aspirin and Brilinta for now. We will hold them for 2 or 3 days since she stops bleeding and she is replenished and we will plan on restarting only Plavix alone for her stent. 2. Hopefully, she will stop bleeding and will not rebleed with Plavix alone. 3. We will follow. We would recommend keeping her hemoglobin above 10 if possible. Job ID: [id number]
[2019-03-26] MEDS: Atorvastatin Calcium 20 MG TAB PO SCH (20:11)
[2019-03-26] MEDS: Amitriptyline HCl 10 MG TAB PO SCH (20:11)
[2019-03-26] MEDS: Docusate 100 MG CAP PO SCH (20:12)
[2019-03-26 22:35] LABS: Hemoglobin 7.6 g/dL (12.0-16.0)
[2019-03-27] MEDS: Levothyroxine Sodium 125 MCG TAB PO SCH (05:59)
[2019-03-27] MEDS: Sevelamer Carbonate 800 MG TAB PO SCH ×3 (08:35→17:04)
[2019-03-27] MEDS: Gabapentin 300 MG CAP PO SCH ×3 (08:36→22:29)
[2019-03-27] MEDS: Amiodarone 200 MG TAB PO SCH ×2 (08:36→08:37)
[2019-03-27] MEDS: Diazepam 5 MG TAB PO SCH (08:36)
[2019-03-27] MEDS: Docusate 100 MG CAP PO SCH ×2 (08:39→22:30)
[2019-03-27] MEDS: Insulin Glargine 28 UNITS in Pre-Filled Syringe 1 EACH SC SCH (08:46)
[2019-03-27] MEDS ORDERED: LEVOTHYROXINE SODIUM 125 MCG PO SCH (09:00)
[2019-03-27] MEDS ORDERED: Non-Formulary Item 1 EACH (Sertraline Hcl [Sertraline Hcl] 50 MG) PO SCH (09:00)
[2019-03-27] MEDS ORDERED: Clopidogrel Bisulfate 75 MG TAB PO SCH (09:00)
[2019-03-27] MEDS ORDERED: Albuterol Sulfate 1.25 MG/3 ML NEB ONE (09:29)
[2019-03-27] MEDS ORDERED: Promethazine HCl 25 MG/ML VIAL IM PRN (09:40)
[2019-03-27] MEDS ORDERED: Ondansetron HCl/PF 4 MG/2 ML Vial IVP PRN (09:40)
[2019-03-27] MEDS ORDERED: Promethazine HCl 25 MG/ML VIAL SLOW IVP PRN (09:40)
[2019-03-27] MEDS ORDERED: Sodium Chloride 0.9% (PF) 10 ML VIAL FS PRN (10:31)
[2019-03-27] MEDS ORDERED: Lidocaine 1% PF 5 ML VIAL ONE (12:03)
[2019-03-27] MEDS ORDERED: PROPOFOL 200 MG/20 ML VIAL ONE (12:03)
--- NOTE | 2019-03-27 12:54 | PRG ---
DATE OF SERVICE: 03/27/2019 SUBJECTIVE: A 63-year-old female being seen for end-stage kidney disease. The patient denied nausea, vomiting, or chest pain. OBJECTIVE: CONSTITUTIONAL: The patient is awake and alert. VITAL SIGNS: Afebrile, pulse 70, breathing 16, blood pressure 106/62. GENERAL APPEARANCE AND MENTAL STATUS: Fair. HEAD/NECK: Normocephalic. Atraumatic. EYES: EOMI. No deformity. EARS: Clear. No ulcers. NOSE: Intact. No lesions. MOUTH: Clear. No discharge. THROAT: Clear. No exudate. LUNGS: Clear. No crackles. CARDIAC: S1, S2. No rub. ABDOMEN: Benign. Bowel sounds positive. GENITALIA/RECTUM: Steiner absent. BACK/EXTREMITIES: Edema 0+. NEUROLOGICAL: Alert and motor intact. SKIN: LYMPHATICS: LABORATORY DATA: Labs reviewed. ASSESSMENT AND PLAN: 1. Stage 6 chronic kidney disease. Continue peritoneal dialysis. 2. Hypertension, stable. 3. Hyperkalemia, stable. 4. Anemia. Transfusion planned. Job ID: [id number]
--- NOTE | 2019-03-27 16:09 | PDOC.PN ---
- Subjective Encounter Start Date: 03/27/19 Encounter Start Time: 14:00 Pt seen for followup re: GI bleed. s/p scope, sleepy but arousable, not reliably answering questions, unable to complete ROS. - Objective Resuscitation Status - Order Detail: 03/26/19 13:57 Resuscitation Status Routine Resuscitation Status: FULL: Full Resuscitation Vital Signs & Weight: Vital Signs (12 hours) Temp Pulse Resp BP Pulse Ox 03/27/19 12:00 98.4 F 81 18 104/67 93 L 03/27/19 08:00 98.3 F 78 18 106/62 93 L Weight Weight 240 lb 4.862 oz I&O: 03/26/19 03/27/19 03/28/19 06:59 06:59 06:59 Intake Total 1002 Balance 1002 Result Diagrams: 03/26/19 22:29 03/26/19 08:10 Additional Labs: Accuchecks 03/27/19 12:04 POC Glucose 123 H Phys Exam - Physical Examination Morbid obesity HEENT: moist MMs, sclera anicteric, oral pharynx no lesions, 2+ tonsils conjunctival pallor Neck: supple Respiratory: clear to auscultation bilateral Cardiovascular: RRR, no rub S1, S2 Gastrointestinal: soft, non-tender, positive bowel sounds distention Neurological: moves all 4 limbs Psychiatric: normal affect Deviation from normal: Pt is oriented to person, unable to assess orientation to place or time Deviation from normal: wound as documented Dx/Plan (1) Lower GI bleed Code(s): K92.2 - GASTROINTESTINAL HEMORRHAGE, UNSPECIFIED Status: Acute Comment: s/p colonoscopy, await result. Aspirin and Brilinta on hold (2) CAD (coronary artery disease) Code(s): I25.10 - ATHSCL HEART DISEASE OF [place] CORONARY ARTERY W/O ANG PCTRS Status: Chronic Comment: stable. Cardiology following (3) Wound, open, leg Code(s): S81.809A - UNSPECIFIED OPEN WOUND, UNSPECIFIED LOWER LEG, INIT ENCNTR Status: Chronic Comment: Wound care consulted. (4) DM2 (diabetes mellitus, type 2) Status: Chronic Comment: SYLVIE Campbell (5) ESRD (end stage renal disease) on dialysis Code(s): N18.6 - END STAGE RENAL DISEASE; Z99.2 - DEPENDENCE ON RENAL DIALYSIS Status: Chronic Comment: Cont PD in house. Nephrology following (6) HTN (hypertension) Code(s): I10 - ESSENTIAL (PRIMARY) HYPERTENSION Status: Chronic Comment: controlled - Plan * . Review of Systems - Medications/Allergies Allergies/Adverse Reactions: Allergies Allergy/AdvReac Type Severity Reaction Status Date / Time iodine Allergy Verified 03/26/19 13:29 meperidine [From Demerol] Allergy Verified 03/17/19 12:39 Penicillins Allergy Verified 03/17/19 12:39 Medications: Current Medications Hydrocodone Bitart/Acetaminophen ([place] 5/325) 1 tab PO Q6H PRN PRN Reason: Pain Last Admin: 03/26/19 18:06 Dose: 1 tab Amiodarone HCl (Cordarone) 200 mg PO DAILY [facility] Last Admin: 03/27/19 08:37 Dose: 200 mg Amitriptyline HCl (Elavil) 10 mg PO HS [facility] Last Admin: 03/26/19 20:11 Dose: 10 mg Atorvastatin Calcium (Lipitor) 20 mg PO HS [facility] [place] Last Admin: 03/26/19 20:11 Dose: 20 mg Clopidogrel Bisulfate (Plavix) 75 mg PO DAILY [facility] [place] Dextrose/Water (Dextrose 50%) 25 gm SLOW IVP PRN PRN PRN Reason: Hypoglycemia Diazepam (Valium) 15 mg PO DAILY [facility] Last Admin: 03/27/19 08:36 Dose: 15 mg Docusate Sodium (Colace) 100 mg PO BID [facility] Last Admin: 03/27/19 08:39 Dose: Not Given Gabapentin (Neurontin) 300 mg PO TID [facility] Last Admin: 03/27/19 13:54 Dose: 300 mg Glucagon (Glucagon) 1 mg IM PRN PRN PRN Reason: Hypoglycemia Insulin Glargine 28 units/ (Miscellaneous Medication) 0.28 mls @ 0 mls/hr SC QAM [facility] [place] Last Admin: 03/27/19 08:46 Dose: Not Given Dextrose/Water (D5w) 1,000 mls @ 0 mls/hr IV .Q0M PRN PRN Reason: Hypoglycemia Insulin Human Lispro (Humalog) 0 units SC .MILD SLIDING SCALE PRN PRN Reason: Mild Correctional Scale Levothyroxine Sodium (Synthroid) 125 mcg PO 0600 [facility] [place] Last Admin: 03/27/19 05:59 Dose: Not Given Pantoprazole Sodium (Protonix) 40 mg IVP DAILY [facility] [place] Sertraline HCl (Zoloft) 50 mg PO DAILY [facility] Last Admin: 03/27/19 08:37 Dose: 50 mg Sevelamer Carbonate (Renvela) 1,600 mg PO TID-WM [facility] [place] Last Admin: 03/27/19 13:54 Dose: 1,600 mg Sodium Chloride (Flush - Normal Saline) 10 ml IVF Q12HR [facility] Last Admin: 03/27/19 08:38 Dose: 10 ml Sodium Chloride (Flush - Normal Saline) 10 ml IVF PRN PRN PRN Reason: Saline Flush Sodium Chloride (Flush - Normal Saline) 10 ml IVF PRN PRN PRN Reason: Saline Flush Sodium Chloride (Normal Saline Pf) 10 ml FS PRN PRN PRN Reason: RECONSTITUTION
--- NOTE | 2019-03-27 16:51 | OP ---
DATE OF PROCEDURE: 03/27/2019 PROCEDURE PERFORMED: Esophagogastroduodenoscopy, diagnostic. PREPROCEDURE DIAGNOSES: 1. Reported hematochezia. 2. Anemia. 3. End-stage renal disease, on peritoneal dialysis. 4. Recently cardiac cath with stent placed and placed on antiplatelet therapy that is what immediately proceeded the bleeding. POSTPROCEDURE DIAGNOSES: 1. Esophagogastroduodenoscopy without any bleeding sites identified. 2. Erythema in the antrum with some gastritis, but no erosions or bleeding. 3. Retained food in the esophagus. 4. Stasis changes in the esophagus without strictures. 5. Retained food in the stomach, mild to moderate. 6. A little bit of retained food in the duodenal bulb. 7. All of this is suggestive of gastroparesis. ANESTHESIA: TIVA. PROCEDURE IN DETAIL: The patient was informed of the risks, benefits, and possible complications of the endoscopy including perforation, reaction to medication, and aspiration, informed consent was obtained and the patient was brought to the endoscopy suite, where she was sedated in a gradual fashion. Once she was comfortable, bite block was placed inside the orifice. The endoscope was advanced through the esophagus, stomach, and the second and third portion of the duodenum and slowly removed. The esophagus was notable for some retained food in the esophagus, which was pushed down into the stomach. There was no evidence of strictures or erosions. There was some stasis changes in the esophagus. The stomach was notable for the same. There was a little bit of erythema in the antrum and gastritis, but no stigmata of bleeding. There was one area of submucosal hemorrhage underneath the pinpoint area in the antrum, but no visible vessel or bleeding seen here and the duodenum was normal. Retroflexed views were normal except for the retained food. I suspect that if she had any bleeding from the gastritis in the stomach with the amount of gastroparesis she has had, there would be some heme staining of the mucosa, none of which was seen. The scope was removed. The patient tolerated the procedure well. There were no complications. RECOMMENDATIONS: 1. Stop Protonix drip. She can get Protonix once daily for prophylaxis. 2. If the patient has ongoing bleeding, we consider repeat colonoscopy. She did have a colonoscopy in 2017 with diverticulosis in the left colon. Ileocolonic anastomosis in the right colon consistent with previous right hemicolectomy that was performed for GI bleed and acute GI blood loss, and family history of colorectal cancer in her brother and her mother. No bleeding was seen on that study. At that time, she had an EGD as well, which was normal. We will continue to follow along with you. Job ID: [id number]
--- NOTE | 2019-03-27 17:01 | PDOC.CTH ---
Cardiology Progress Note - Subjective No chest pain. Had EGD and it did not show any acute bleeding. - Objective Vital Signs Temp Pulse Resp BP Pulse Ox 03/27/19 16:27 97.8 F 75 18 115/54 L 95 03/27/19 12:00 98.4 F 81 18 104/67 93 L 03/27/19 08:00 98.3 F 78 18 106/62 93 L Weight 240 lb 4.862 oz 03/26/19 03/27/19 03/28/19 06:59 06:59 06:59 Intake Total 1002 Balance 1002 - Physical Examination General/Neuro: alert & oriented x3, NAD Neck: no JVD present Lungs: unlabored respirations Heart: RRR Abdomen: NT/ND Extremities: + edema B (1+) - Telemetry Telemetry Rhythm: NSR - Labs Result Diagrams: 03/26/19 22:29 03/26/19 08:10 - Assessment/Plan 1. Acute blood loss anemia 2. GI bleed, (hematochezia) 3. Recent stenting to LCx with STANLEY. 4. PVD. PLAN: - Continue to hold ALEJANDRO. - Transfuse as needed to keep hgb above 9. - Once bleeding stops will re challenge with plavix alone.
[2019-03-27] MEDS: Sodium Chloride 0.9% 1,000 ML IV SCH ×2 (17:29→22:31)
[2019-03-27 17:36] LABS: Hemoglobin 8.1 g/dL (12.0-16.0)
--- NOTE | 2019-03-27 22:01 | NM ---
EXAM: NM Abdominal Bleeding Pyp Scan PROVIDED CLINICAL HISTORY: Large bloody bowel movement following EGD. COMPARISON: None available. FINDINGS: Multiple sequential anterior abdominal images are obtained after the administration of 30.5 mCi techn etium 99m tagged red blood cells, IV. There is prominent nonspecific activity seen within the blood pool. There is no increased uptake of radiotracer seen which conforms to a loop of bowel and progresses ove r time to suggest a gastrointestinal bleeding site. IMPRESSION: No findings on this examination to suggest a gastrointestinal bleeding site. Follow-up evaluation on 03/28/2019 can be performed if clinically indicated or if the patient develops GI bleeding.
[2019-03-27] MEDS: Atorvastatin Calcium 20 MG TAB PO SCH (22:28)
[2019-03-27] MEDS: Amitriptyline HCl 10 MG TAB PO SCH (22:29)
[2019-03-27 22:50] LABS: Hemoglobin 7.9 g/dL (12.0-16.0)
[2019-03-28] MEDS: Levothyroxine Sodium 125 MCG TAB PO SCH (05:53)
[2019-03-28 07:04] LABS: Hemoglobin 7.4 g/dL (12.0-16.0)
[2019-03-28] MEDS: Diazepam 5 MG TAB PO SCH (07:52)
[2019-03-28] MEDS: Sevelamer Carbonate 800 MG TAB PO SCH ×3 (07:52→15:53)
[2019-03-28] MEDS: Pantoprazole 40 MG VIAL IVP SCH (07:53)
[2019-03-28] MEDS: Gabapentin 300 MG CAP PO SCH ×3 (07:53→20:26)
[2019-03-28] MEDS: Amiodarone 200 MG TAB PO SCH (07:54)
[2019-03-28] MEDS: Insulin Glargine 28 UNITS in Pre-Filled Syringe 1 EACH SC SCH (07:54)
[2019-03-28] MEDS: Docusate 100 MG CAP PO SCH ×2 (07:55→20:26)
[2019-03-28] MEDS: HYDROcodone/Acetaminophen 5/325 mg Tablet PO PRN (08:03)
--- NOTE | 2019-03-28 08:56 | CON ---
DATE OF CONSULTATION: 03/26/2019 REASON FOR CONSULT: Rectal bleeding. HISTORY OF PRESENT ILLNESS: Ms. Pandya is a 63-year-old female, who was recently here in the hospital from 03/17 to 03/23 with chest pain. She is an end-stage renal disease patient, who is on dialysis, who is having problems with blistering and vascular disease involving her lower extremities and having some swelling and then was having on and off chest pain as well and had a mildly elevated troponin and was seen by Cardiology. They decided to take her to the [facility], where she has had previous stents and then placing one drug-eluting stent. She had persistent pain with her lower extremity ulcers and she had some imaging studies done, but there were severe distal disease with nothing to stent her bypass. She was placed on aspirin and Brilinta and ultimately discharged to [facility] and on Brilinta 90 b.i.d., Lipitor, aspirin 81 mg daily, NovoLog, nitroglycerin sublingual p.r.n., Levemir, Neurontin, Colace, calcitriol, Elavil, sertraline, Valium, Renvela, and levothyroxine. Apparently, she is also in the outpatient setting on some hydrocodone for pain in her legs. She reports that she ran out of some bleeding about 3 days ago, although she has been in and out in terms of her accuracy of details per the nurses. In the emergency room, it was noted she was sent back from rehab for some hematochezia. The patient denies any pain with this. She states that the each day for the past couple of days she seems red blood in her stool. This has been dark without clots and it has been going on for about 3 days. The emergency room note confirms this. The patient had one bowel movement today and two yesterday. On the way here, she had a pulse 104, but she has been stable since that time. I have been asked to see her in evaluation of this. Cardiology has stopped her Brilinta and placed on 75 mg of Plavix. She has had only one bowel movement today. PAST MEDICAL HISTORY: Coronary artery disease and previous stenting, most recently about a week ago; atrial fibrillation, paroxysmal with previous pacemaker placement; type 2 diabetes; hypertension; hypothyroidism; hyperlipidemia. She is on peritoneal dialysis. PAST SURGICAL HISTORY: Peritoneal dialysis catheter, shunt in the right upper arm not used, previous hysterectomy, previous atherectomy, previous partial colectomy. Back surgeries and hip replacement in the past. SOCIAL HISTORY: The patient does not use alcohol, drugs, or tobacco. She is from [place], [place]. ALLERGIES: ATIVAN, DEMEROL, AND PENICILLIN. MEDICATIONS: 1. Renvela. 2. Multaq. 3. Levothyroxine and the other medicines noted at the rehab facility were her transfer medications. Present medications: 1. Tylenol. 2. Amiodarone 200 mg daily. 3. Elavil 10 mg at bedtime. 4. Lipitor. 5. Plavix 75 mg daily. 6. Valium. 7. Colace. 8. Neurontin. 9. Glucagon. 10. Hydrocodone. 11. Insulin sliding scale. 12. Zofran. 13. Protonix drip. 14. Sertraline. 15. Sevelamer. PHYSICAL EXAMINATION: VITAL SIGNS: Temperature is 98.7, pulse 87, blood pressure is 133/73. She does not sure what hospital she is in but she knows what day it is. She denies any overt complaints. GENERAL: She is obese. HEENT: Oropharynx without lesions. NECK: Supple without any adenopathy. SKIN: She has much small lesions quite bite. In peripheral vascular area, she has thin skin with blisters on her feet and toes, some small erosions. LUNGS: Clear. HEART: She has 2/6 systolic ejection murmur. Mild tachycardia sinus. ABDOMEN: Soft and nontender with no rebound or guarding. There is a dialysis catheter, peritoneal right lower quadrant. EXTREMITIES: Revealed no clubbing or cyanosis. There is some edema. There are skin ulcerations as noted. NEUROLOGIC: She is alert to person and place. She does know exactly where she is, what day it is, but she knows she is in the hospital. She does think she is still to rehab hospital. RECTAL: Reveals a brick red old blood in the rectal vault with no clots or fresh blood. IMAGING STUDIES: Showed a CAT scan on 03/26 at 0900 hours in the morning today, IV contrast only. This was for hematochezia, abdominal pain, and diarrhea. It showed some mild edema in the subcutaneous tissues, postop changes in lumbar spine, left hip prosthesis, normal small bowel, normal colon, small volume ascites. LABORATORY DATA: Hemoglobin on the 16th was 8, on the it was 8.1, on the it was 9.2 and 7.1 yesterday and 7.5 today. INR is 1.3, PT 16, and PTT 38. Sodium 134, potassium 4.2, bicarb 92, BUN is 48, and creatinine 7.7. Iron studies showed normal iron and TIBC is low. Ferritin is over 2000. Liver function tests normal. ASSESSMENT: Hematochezia, etiology is unclear. She was started on anticoagulation recently for stent placement. She is on no ulcer prophylaxis. She has been started on a PPI now. The patient reports she has had previous endoscopy, which she states here a month ago and I see no record of that. We will check records from our office if she has had anything done. Plan for EGD tomorrow. If it is negative, we can consider colonoscopy. If she has ongoing bleeding, she needs to stay on blood thinner. She had a drug-eluting stent placed in her coronary artery a week ago. Job ID: [id number]
[2019-03-28] MEDS ORDERED: Clopidogrel Bisulfate 75 MG TAB PO SCH (09:00)
[2019-03-28 10:21] LABS: #Eosinphils 0.3 thou/uL (0.0-0.7); #Lymphocytes 1.2 thou/uL (1.20-3.40); #Neutrophils 6.5 thou/uL (1.40-6.50); %Basophils 0.4 % (0.0-1.0); %Eosinophils 3.2 % (0.0-10.0); %Lymphocytes 13.4 % (21.0-51.0); %Monocytes 11.5 % (0.0-10.0); %Neutrophils 71.5 % (42.0-75.0); Hemoglobin 7.8 g/dL (12.0-16.0); Mean Corpuscular HGB CONC 33.5 g/dL (32.0-36.0); Mean Corpuscular Hemoglobin 33.1 pg (27.0-31.0); Mean Corpuscular Volume 98.9 fL (78.0-98.0); Mean Platelet Volume 7.1 fL (7.4-10.4); Platelet Count 255 thou/uL (130-400); RBC Distribution Width 14.5 % (11.5-14.5); Red Blood Cell (RBC) Count 2.34 mill/uL (4.20-5.40)
[2019-03-28 10:49] LABS: Anion Gap 16 mmol/L (10-20); BUN (Urea Nitrogen) 55 mg/dL (9.8-20.1); Calc. Creatinine Clearance 13 mL/min (70-130); Calcium 7.9 mg/dL (7.8-10.44); Carbon Dioxide 25 mmol/L (23-31); Chloride 96 mmol/L (98-107); Estimated GFR-MDRD 6; Glucose 127 mg/dL (80-115); Potassium 4.3 mmol/L (3.5-5.1); Sodium 133 mmol/L (136-145)
--- NOTE | 2019-03-28 13:06 | PRG ---
DATE OF SERVICE: 03/28/2019 SUBJECTIVE: A 63-year-old female being seen for end-stage kidney disease. The patient denied nausea, vomiting, or chest pain. OBJECTIVE: CONSTITUTIONAL: The patient is awake and alert. VITAL SIGNS: Afebrile, pulse 85, breathing 16, blood pressure 112/70. GENERAL APPEARANCE AND MENTAL STATUS: Fair. HEAD/NECK: Normocephalic. Atraumatic. EYES: EOMI. No deformity. EARS: Clear. No ulcers. NOSE: Intact. No lesions. MOUTH: Clear. No discharge. THROAT: Clear. No exudate. LUNGS: Clear. No crackles. CARDIAC: S1, S2. No rub. ABDOMEN: Benign. Bowel sounds positive. GENITALIA/RECTUM: Steiner absent. BACK/EXTREMITIES: Edema 0+. NEUROLOGICAL: Alert and motor intact. SKIN: LYMPHATICS: LABORATORY DATA: Labs reviewed. ASSESSMENT AND PLAN: 1. Stage 6 chronic kidney disease. Continue hemodialysis. 2. Hypertension, stable. 3. Anemia, stable. 4. Medication based on GFR appropriate. Job ID: [id number]
--- NOTE | 2019-03-28 13:21 | PRG ---
DATE OF SERVICE: 03/28/2019 SUBJECTIVE: Ms. Pandya has had no further bleeding today. No abdominal pain. No nausea or vomiting. OBJECTIVE: VITAL SIGNS: Temperature 97.6, pulse 69, blood pressure 112/70. GENERAL: She is in no acute distress. She is awake and alert. LUNGS: Clear to auscultation bilaterally. HEART: Regular rate and rhythm. ABDOMEN: Obese and nondistended. Her bowel sounds are present. She has no abdominal tenderness. EXTREMITIES: 1+ pitting lower extremity edema. LABORATORY DATA: White blood cell count is 9.0, hemoglobin 7.8, platelets 255. INR 1.3, creatinine 7.27, ferritin of 2000. IMPRESSION: 1. GI bleed with dark red or maroon stool. This is in the setting of use of Brilinta and aspirin for recent drug coated coronary stent. 2. Anemia of acute blood loss and chronic kidney disease. Looks like her baseline hemoglobin is around 9. She has received 2 units transfusion this hospital stay so far. Endoscopy was negative for bleeding source yesterday. Her last colonoscopy was in June of 2017 that showed left-sided diverticulosis. She does have an anastomosis in the right colon consistent with a prior right hemicolectomy. She has family history of colon cancer; however, this bleed appears to be diverticular. The bleeding now appears to have stopped with a negative bleeding scan and no overt bleeding today and stabilization of her blood counts. RECOMMENDATIONS: She can advance to a full liquid diet today. We will continue to follow the trend of her hemoglobin tomorrow morning and evaluate for overt bleeding. I would hold off colonoscopy at this time given her severe comorbid illnesses between her recent myocardial infarction and coronary disease, and dialysis and obesity. Colonoscopy can be considered if she has persistent overt bleeding. Job ID: [id number]
--- NOTE | 2019-03-28 13:49 | PDOC.PN ---
- Subjective Encounter Start Date: 03/28/19 Encounter Start Time: 09:00 Pt seen for followup re: lower GI bleed. Denies chest pain. c/o pain across lower abdomen, unable to characterize it further. - Objective Resuscitation Status - Order Detail: 03/26/19 13:57 Resuscitation Status Routine Resuscitation Status: FULL: Full Resuscitation Vital Signs & Weight: Vital Signs (12 hours) Temp Pulse Resp BP Pulse Ox 03/28/19 12:00 97.6 F 69 16 112/70 96 03/28/19 08:00 98.0 F 75 18 114/65 96 03/28/19 04:49 98.2 F 75 16 100/57 L 94 L Weight Weight 240 lb 4.862 oz I&O: 03/27/19 03/28/19 03/29/19 06:59 06:59 06:59 Intake Total 1002 1874 400 Balance 1002 1874 400 Result Diagrams: 03/28/19 10:14 03/28/19 10:14 Additional Labs: Accuchecks 03/27/19 16:19 POC Glucose 99 Phys Exam - Physical Examination Obese HEENT: moist MMs Respiratory: clear to auscultation bilateral Cardiovascular: RRR Gastrointestinal: soft, non-tender, positive bowel sounds Musculoskeletal: edema present Neurological: moves all 4 limbs Psychiatric: normal affect Deviation from normal: Wounds as documented Dx/Plan (1) Lower GI bleed Code(s): K92.2 - GASTROINTESTINAL HEMORRHAGE, UNSPECIFIED Status: Acute Comment: Pt had EGD yesterday (not colonoscopy). ASA and Brilinta on hold. Hb trending down but bleeding scan negative. (2) Anemia associated with acute blood loss Code(s): D62 - ACUTE POSTHEMORRHAGIC ANEMIA Status: Acute Comment: secondary to lower GI bleed. (3) CAD (coronary artery disease) Code(s): I25.10 - ATHSCL HEART DISEASE OF [place] CORONARY ARTERY W/O ANG PCTRS Status: Chronic Comment: stable. Pt os off of Brilinta and aspirin. (4) Wound, open, leg Code(s): S81.809A - UNSPECIFIED OPEN WOUND, UNSPECIFIED LOWER LEG, INIT ENCNTR Status: Chronic Comment: Wound care following (5) DM2 (diabetes mellitus, type 2) Status: Chronic Comment: controlled (6) ESRD (end stage renal disease) on dialysis Code(s): N18.6 - END STAGE RENAL DISEASE; Z99.2 - DEPENDENCE ON RENAL DIALYSIS Status: Chronic Comment: Nephrology following (7) HTN (hypertension) Code(s): I10 - ESSENTIAL (PRIMARY) HYPERTENSION Status: Chronic Comment: controlled - Plan * . Review of Systems - Review of Systems Cardiovascular: negative: chest pain, palpitations, orthopnea, paroxysmal nocturnal dyspnea, edema, light headedness Gastrointestinal: Abdominal Pain, Hematochezia. negative: Nausea, Vomiting, Diarrhea, Constipation, Melena - Medications/Allergies Allergies/Adverse Reactions: Allergies Allergy/AdvReac Type Severity Reaction Status Date / Time iodine Allergy Verified 03/26/19 13:29 meperidine [From Demerol] Allergy Verified 03/17/19 12:39 Penicillins Allergy Verified 03/17/19 12:39 Medications: Current Medications Hydrocodone Bitart/Acetaminophen ([place] 5/325) 1 tab PO Q6H PRN PRN Reason: Pain Last Admin: 03/28/19 08:03 Dose: 1 tab Amiodarone HCl (Cordarone) 200 mg PO DAILY [facility] Last Admin: 03/28/19 07:54 Dose: 200 mg Amitriptyline HCl (Elavil) 10 mg PO HS [facility] Last Admin: 03/27/19 22:29 Dose: 10 mg Atorvastatin Calcium (Lipitor) 20 mg PO HS [facility] Last Admin: 03/27/19 22:28 Dose: 20 mg Dextrose/Water (Dextrose 50%) 25 gm SLOW IVP PRN PRN PRN Reason: Hypoglycemia Diazepam (Valium) 15 mg PO DAILY [facility] Last Admin: 03/28/19 07:52 Dose: 15 mg Docusate Sodium (Colace) 100 mg PO BID [facility] Last Admin: 03/28/19 07:55 Dose: Not Given Gabapentin (Neurontin) 300 mg PO TID [facility] Last Admin: 03/28/19 07:53 Dose: 300 mg Glucagon (Glucagon) 1 mg IM PRN PRN PRN Reason: Hypoglycemia Insulin Glargine 28 units/ (Miscellaneous Medication) 0.28 mls @ 0 mls/hr SC QAM [facility] Last Admin: 03/28/19 07:54 Dose: Not Given Dextrose/Water (D5w) 1,000 mls @ 0 mls/hr IV .Q0M PRN PRN Reason: Hypoglycemia Sodium Chloride (Normal Saline 0.9%) 1,000 mls @ 70 mls/hr IV .[id number] [facility] Last Admin: 03/27/19 22:31 Dose: 1,000 mls Insulin Human Lispro (Humalog) 0 units SC .MILD SLIDING SCALE PRN PRN Reason: Mild Correctional Scale Levothyroxine Sodium (Synthroid) 125 mcg PO 0600 [facility] Last Admin: 03/28/19 05:53 Dose: 125 mcg Pantoprazole Sodium (Protonix) 40 mg IVP DAILY [facility] Last Admin: 03/28/19 07:53 Dose: 40 mg Sertraline HCl (Zoloft) 50 mg PO DAILY [facility] Last Admin: 03/28/19 07:53 Dose: 50 mg Sevelamer Carbonate (Renvela) 1,600 mg PO TID-WM [facility] Last Admin: 03/28/19 12:54 Dose: 1,600 mg Sodium Chloride (Flush - Normal Saline) 10 ml IVF PRN PRN PRN Reason: Saline Flush Sodium Chloride (Normal Saline Pf) 10 ml FS PRN PRN PRN Reason: RECONSTITUTION
--- NOTE | 2019-03-28 16:06 | PDOC.CTH ---
Cardiology Progress Note - Subjective No new issues. No more bloody BM's since yesterday but federico davis had a BM at all. - Objective Vital Signs Temp Pulse Resp BP Pulse Ox 03/28/19 12:00 97.6 F 69 16 112/70 96 03/28/19 08:00 98.0 F 75 18 114/65 96 03/28/19 04:49 98.2 F 75 16 100/57 L 94 L Weight 240 lb 4.862 oz 03/27/19 03/28/19 03/29/19 06:59 06:59 06:59 Intake Total 1002 1874 400 Balance 1002 1874 400 - Physical Examination General/Neuro: alert & oriented x3, NAD Neck: no JVD present Lungs: unlabored respirations Heart: RRR Abdomen: NT/ND Extremities: + edema B (1+) - Telemetry Telemetry Rhythm: NSR - Labs Result Diagrams: 03/28/19 10:14 03/28/19 10:14 - Assessment/Plan 1. Acute blood loss anemia 2. GI bleed, (hematochezia), likely diverticular. 3. Recent stenting to LCx with STANLEY. 4. PVD. PLAN: - Continue to hold ALEJANDRO. - Transfuse as needed to keep hgb above 9. - Once bleeding stops will re challenge with plavix alone.
[2019-03-28] MEDS: Metoclopramide HCl 10 MG TAB PO SCH (20:25)
[2019-03-28] MEDS: Amitriptyline HCl 10 MG TAB PO SCH (20:26)
[2019-03-28] MEDS: Atorvastatin Calcium 20 MG TAB PO SCH (20:27)
[2019-03-29] MEDS: Levothyroxine Sodium 125 MCG TAB PO SCH (05:55)
[2019-03-29 06:43] LABS: #Eosinphils 0.2 thou/uL (0.0-0.7); #Lymphocytes 1.1 thou/uL (1.20-3.40); #Monocytes 1.1 thou/uL (0.11-0.59); #Neutrophils 5.6 thou/uL (1.40-6.50); %Basophils 0.5 % (0.0-1.0); %Eosinophils 3.1 % (0.0-10.0); %Lymphocytes 13.6 % (21.0-51.0); %Monocytes 13.9 % (0.0-10.0); Mean Corpuscular HGB CONC 32.9 g/dL (32.0-36.0); Mean Corpuscular Hemoglobin 32.8 pg (27.0-31.0); Mean Corpuscular Volume 99.7 fL (78.0-98.0); Mean Platelet Volume 7.4 fL (7.4-10.4); Platelet Count 271 thou/uL (130-400); RBC Distribution Width 14.5 % (11.5-14.5); Red Blood Cell (RBC) Count 2.43 mill/uL (4.20-5.40); White Blood Cell (WBC) Count 8.1 thou/uL (4.8-10.8)
[2019-03-29 06:46] LABS: Anion Gap 16 mmol/L (10-20); BUN (Urea Nitrogen) 50 mg/dL (9.8-20.1); Calc. Creatinine Clearance 15 mL/min (70-130); Calcium 8.1 mg/dL (7.8-10.44); Carbon Dioxide 24 mmol/L (23-31); Chloride 96 mmol/L (98-107); Estimated GFR-MDRD 7; Glucose 143 mg/dL (80-115); Potassium 3.8 mmol/L (3.5-5.1); Sodium 132 mmol/L (136-145)
[2019-03-29] MEDS: Diazepam 5 MG TAB PO SCH (08:54)
[2019-03-29] MEDS: Amiodarone 200 MG TAB PO SCH (08:55)
[2019-03-29] MEDS: Docusate 100 MG CAP PO SCH ×2 (08:56→20:05)
[2019-03-29] MEDS: Gabapentin 300 MG CAP PO SCH ×3 (08:56→20:05)
[2019-03-29] MEDS: Metoclopramide HCl 10 MG TAB PO SCH ×4 (08:58→20:06)
[2019-03-29] MEDS: Sevelamer Carbonate 800 MG TAB PO SCH ×3 (08:58→17:22)
[2019-03-29] MEDS: Insulin Glargine 28 UNITS in Pre-Filled Syringe 1 EACH SC SCH (08:59)
[2019-03-29] MEDS ORDERED: Clopidogrel Bisulfate 75 MG TAB PO SCH (09:00)
[2019-03-29] MEDS: Pantoprazole 40 MG VIAL IVP SCH (09:00)
--- NOTE | 2019-03-29 13:08 | PRG ---
DATE OF SERVICE: 03/29/2019 SUBJECTIVE: A 63-year-old female being seen for end-stage kidney disease. The patient denied nausea, vomiting, or chest pain. OBJECTIVE: CONSTITUTIONAL: The patient is awake and alert. VITAL SIGNS: Afebrile, pulse 74, breathing 16, blood pressure 101/64. GENERAL APPEARANCE AND MENTAL STATUS: Fair. HEAD/NECK: Normocephalic. Atraumatic. EYES: EOMI. No deformity. EARS: Clear. No ulcers. NOSE: Intact. No lesions. MOUTH: Clear. No discharge. THROAT: Clear. No exudate. LUNGS: Clear. No crackles. CARDIAC: S1, S2. No rub. ABDOMEN: Benign. Bowel sounds positive. GENITALIA/RECTUM: Steiner absent. BACK/EXTREMITIES: Edema 0+. NEUROLOGICAL: Alert and motor intact. SKIN: LYMPHATICS: LABORATORY DATA: Labs reviewed. ASSESSMENT AND PLAN: 1. Stage 6 chronic kidney disease. Continue peritoneal dialysis. 2. Hypertension, stable. 3. Anemia, stable. 4. We will plan on ultrafiltration with 2.5%. Job ID: [id number]
--- NOTE | 2019-03-29 17:43 | PDOC.PN ---
- Subjective Encounter Start Date: 03/29/19 Encounter Start Time: 10:00 Pt seen for followup re: lower GI bleed. Feels better. No chest pain or shortness of breath. - Objective Resuscitation Status - Order Detail: 03/26/19 13:57 Resuscitation Status Routine Resuscitation Status: FULL: Full Resuscitation Vital Signs & Weight: Vital Signs (12 hours) Temp Pulse Resp BP Pulse Ox 03/29/19 11:00 97.9 F 74 18 101/64 97 03/29/19 08:00 96 03/29/19 07:37 98.2 F 76 20 115/70 96 Weight Admit Weight 240 lb 4.862 oz Weight 240 lb 4.862 oz I&O: 03/28/19 03/29/19 03/30/19 06:59 06:59 06:59 Intake Total 1874 1680 Balance 1874 1680 Result Diagrams: 03/29/19 05:58 03/29/19 05:58 Phys Exam - Physical Examination Morbid obesity HEENT: moist MMs Neck: supple Respiratory: clear to auscultation bilateral Cardiovascular: RRR Gastrointestinal: soft Neurological: moves all 4 limbs Psychiatric: normal affect Deviation from normal: wounds as documented Dx/Plan (1) Lower GI bleed Code(s): K92.2 - GASTROINTESTINAL HEMORRHAGE, UNSPECIFIED Status: Acute Comment: ASA and Brilinta on hold. Hb stable, likely diverticular bleed (2) Anemia associated with acute blood loss Code(s): D62 - ACUTE POSTHEMORRHAGIC ANEMIA Status: Acute Comment: secondary to lower GI bleed. Hb stable at 8, will transfuse one unit pRBC to target Hb above 9. (3) CAD (coronary artery disease) Code(s): I25.10 - ATHSCL HEART DISEASE OF [place] CORONARY ARTERY W/O ANG PCTRS Status: Chronic Comment: stable. (4) Wound, open, leg Code(s): S81.809A - UNSPECIFIED OPEN WOUND, UNSPECIFIED LOWER LEG, INIT ENCNTR Status: Chronic Comment: Wound care following (5) DM2 (diabetes mellitus, type 2) Status: Chronic Comment: controlled (6) ESRD (end stage renal disease) on dialysis Code(s): N18.6 - END STAGE RENAL DISEASE; Z99.2 - DEPENDENCE ON RENAL DIALYSIS Status: Chronic Comment: Nephrology following for peritoneal dialysis. (7) HTN (hypertension) Code(s): I10 - ESSENTIAL (PRIMARY) HYPERTENSION Status: Chronic Comment: controlled (8) Morbid obesity Code(s): E66.01 - MORBID (SEVERE) OBESITY DUE TO EXCESS CALORIES Status: Chronic - Plan * . Review of Systems - Review of Systems Cardiovascular: negative: chest pain, palpitations, orthopnea, paroxysmal nocturnal dyspnea, edema, light headedness Gastrointestinal: negative: Nausea, Vomiting, Abdominal Pain, Diarrhea, Constipation, Melena, Hematochezia - Medications/Allergies Allergies/Adverse Reactions: Allergies Allergy/AdvReac Type Severity Reaction Status Date / Time iodine Allergy Verified 03/26/19 13:29 meperidine [From Demerol] Allergy Verified 03/17/19 12:39 Penicillins Allergy Verified 03/17/19 12:39 Medications: Current Medications Hydrocodone Bitart/Acetaminophen ([place] 5/325) 1 tab PO Q6H PRN PRN Reason: Pain Last Admin: 03/28/19 08:03 Dose: 1 tab Amiodarone HCl (Cordarone) 200 mg PO DAILY [facility] Last Admin: 03/29/19 08:55 Dose: 200 mg Amitriptyline HCl (Elavil) 10 mg PO HS [facility] Last Admin: 03/28/19 20:26 Dose: 10 mg Atorvastatin Calcium (Lipitor) 20 mg PO HS [facility] Last Admin: 03/28/19 20:27 Dose: 20 mg Dextrose/Water (Dextrose 50%) 25 gm SLOW IVP PRN PRN PRN Reason: Hypoglycemia Diazepam (Valium) 15 mg PO DAILY [facility] Last Admin: 03/29/19 08:54 Dose: 15 mg Docusate Sodium (Colace) 100 mg PO BID [facility] Last Admin: 03/29/19 08:56 Dose: 100 mg Gabapentin (Neurontin) 300 mg PO TID [facility] Last Admin: 03/29/19 16:04 Dose: 300 mg Glucagon (Glucagon) 1 mg IM PRN PRN PRN Reason: Hypoglycemia Insulin Glargine 28 units/ (Miscellaneous Medication) 0.28 mls @ 0 mls/hr SC QAM [facility] Last Admin: 03/29/19 08:59 Dose: 0.28 mls Dextrose/Water (D5w) 1,000 mls @ 0 mls/hr IV .Q0M PRN PRN Reason: Hypoglycemia Insulin Human Lispro (Humalog) 0 units SC .MILD SLIDING SCALE PRN PRN Reason: Mild Correctional Scale Levothyroxine Sodium (Synthroid) 125 mcg PO 0600 [facility] Last Admin: 03/29/19 05:55 Dose: 125 mcg Metoclopramide HCl (Reglan) 10 mg PO ACHS [facility] Last Admin: 03/29/19 17:22 Dose: 10 mg Pantoprazole Sodium (Protonix) 40 mg IVP DAILY [facility] Last Admin: 03/29/19 09:00 Dose: 40 mg Sertraline HCl (Zoloft) 50 mg PO DAILY [facility] Last Admin: 03/29/19 08:57 Dose: 50 mg Sevelamer Carbonate (Renvela) 1,600 mg PO TID-WM [facility] Last Admin: 03/29/19 17:22 Dose: 1,600 mg Sodium Chloride (Flush - Normal Saline) 10 ml IVF PRN PRN PRN Reason: Saline Flush Sodium Chloride (Normal Saline Pf) 10 ml FS PRN PRN PRN Reason: RECONSTITUTION
--- NOTE | 2019-03-29 18:24 | PDOC.CTH ---
Cardiology Progress Note - Subjective Still having smaller amount of bloody stool. Hgb more stable now. No chest pain. - Objective Vital Signs Temp Pulse Resp BP Pulse Ox 03/29/19 11:00 97.9 F 74 18 101/64 97 03/29/19 08:00 96 03/29/19 07:37 98.2 F 76 20 115/70 96 Admit Weight 240 lb 4.862 oz Weight 240 lb 4.862 oz 03/28/19 03/29/19 03/30/19 06:59 06:59 06:59 Intake Total 1874 1680 Balance 1874 1680 - Physical Examination General/Neuro: alert & oriented x3, NAD Neck: no JVD present Lungs: unlabored respirations Heart: RRR Abdomen: NT/ND Extremities: + edema B (1+) - Labs Result Diagrams: 03/29/19 05:58 03/29/19 05:58 - Assessment/Plan 1. Acute blood loss anemia 2. GI bleed, (hematochezia), likely diverticular. 3. Recent stenting to LCx with STANLEY. 4. PVD. 5. ESRD on PD. PLAN: - Continue to hold ALEJANDRO. - Transfuse as needed to keep hgb above 9. - Once bleeding stops will re challenge with plavix half dose daily alone.
--- NOTE | 2019-03-29 19:05 | PRG ---
DATE OF SERVICE: 03/29/2019 SUBJECTIVE: Ms. Pandya reports that she had no bowel movement today. She is very sleepy and lethargic today. States she does not feel well in general, but has no nausea or pain. Nursing reports that she actually had three smears of stools, mostly on the toilet paper with red blood, but no significant volume output with her stool. She has had no nausea or vomiting. PHYSICAL EXAMINATION: VITAL SIGNS: Temperature 97.9, pulse 74, and blood pressure 101/64. GENERAL: She is very pale and lethargic. She is in no acute distress. LUNGS: Clear to auscultation bilaterally. HEART: Regular rate and rhythm. ABDOMEN: Soft, nontender, and nondistended. EXTREMITIES: 1+ pitting lower extremity edema. LABORATORY DATA: Hemoglobin is 8.0 today. IMPRESSION: 1. Gastrointestinal bleed, most likely diverticular. She has had minimal overt stool output over the last couple of days. Her bleeding scan was negative. She is very pale and lethargic. However, today. She has a unit of blood written for her to be transfused today. Her hemoglobin is stable at 8.0. 2. end-stage renal disease, on peritoneal dialysis. 3. Weakness and lethargy. RECOMMENDATIONS: 1. Agree with transfusion today. 2. She does not wish to advance her diet and would like to just stand full liquid diet for now. 3. Overall, she seems to be a rather poor candidate for anesthesia with very poor functional status given her renal disease and heart disease with recent heart catheterization and TX and body habitus. Job ID: [id number]
[2019-03-29] MEDS: Atorvastatin Calcium 20 MG TAB PO SCH (20:05)
[2019-03-29] MEDS: Amitriptyline HCl 10 MG TAB PO SCH (20:06)
[2019-03-30] MEDS: Levothyroxine Sodium 125 MCG TAB PO SCH (05:50)
[2019-03-30 06:50] LABS: Anion Gap 14 mmol/L (10-20); BUN (Urea Nitrogen) 45 mg/dL (9.8-20.1); Calc. Creatinine Clearance 16 mL/min (70-130); Carbon Dioxide 25 mmol/L (23-31); Chloride 96 mmol/L (98-107); Estimated GFR-MDRD 7; Glucose 120 mg/dL (80-115); Potassium 3.4 mmol/L (3.5-5.1); Sodium 132 mmol/L (136-145)
[2019-03-30 06:57] LABS: Band 1 % (5-11); Eosinophils 3 % (0-10); Hemoglobin 8.4 g/dL (12.0-16.0); Lymphocytes 19 % (21-51); MDiff Complete? YES; Mean Corpuscular HGB CONC 33.8 g/dL (32.0-36.0); Mean Corpuscular Hemoglobin 32.5 pg (27.0-31.0); Mean Corpuscular Volume 96.2 fL (78.0-98.0); Mean Platelet Volume 7.5 fL (7.4-10.4); Metamyelocyte 1 % (0-0); Monocytes 11 % (0-10); Neutrophil 65 % (42-75); Platelet Count 255 thou/uL (130-400); Platelet Morphology Comment Appears Adequate; RBC Distribution Width 15.8 % (11.5-14.5)
--- NOTE | 2019-03-30 07:45 | PRG ---
DATE OF SERVICE: 03/30/2019 SUBJECTIVE: A 63-year-old female being seen for end-stage renal disease. The patient denied nausea, vomiting, or chest pain. OBJECTIVE: See above. CONSTITUTIONAL: Awake, alert, in no acute distress. VITAL SIGNS: Afebrile. Pulse 70, breathing 16, blood pressure 118/73. GENERAL APPEARANCE AND MENTAL STATUS: Fair. HEAD/NECK: Normocephalic. Atraumatic. EYES: EOMI. No deformity. EARS: Clear. No ulcers. NOSE: Intact. No lesions. MOUTH: Clear. No discharge. THROAT: Clear. No exudate. LUNGS: Clear. No crackles. CARDIAC: S1, S2. No rub. ABDOMEN: Benign. Bowel sounds positive. GENITALIA/RECTUM: Steiner absent. BACK/EXTREMITIES: Edema 0+. NEUROLOGICAL: Alert and motor intact. SKIN: LYMPHATICS: LABORATORY DATA: Labs reviewed. ASSESSMENT AND PLAN: 1. Stage 6 chronic kidney disease, continue peritoneal dialysis. 2. Hypertension, stable. 3. Anemia, stable. 4. Medication based on GFR appropriate. 5. Hypokalemia. We will recheck potassium. Job ID: [id number]
[2019-03-30] MEDS: Metoclopramide HCl 10 MG TAB PO SCH ×4 (08:22→21:05)
[2019-03-30] MEDS: Sevelamer Carbonate 800 MG TAB PO SCH ×3 (08:24→17:54)
[2019-03-30] MEDS: Docusate 100 MG CAP PO SCH ×2 (08:26→21:05)
[2019-03-30] MEDS: Gabapentin 300 MG CAP PO SCH ×3 (08:29→21:05)
[2019-03-30] MEDS: Amiodarone 200 MG TAB PO SCH (08:30)
[2019-03-30] MEDS: Diazepam 5 MG TAB PO SCH ×2 (08:30→08:31)
[2019-03-30] MEDS: Pantoprazole 40 MG VIAL IVP SCH (08:31)
[2019-03-30] MEDS: Insulin Glargine 28 UNITS in Pre-Filled Syringe 1 EACH SC SCH (08:33)
--- NOTE | 2019-03-30 15:31 | PDOC.PN ---
- Subjective Encounter Start Date: 03/30/19 Encounter Start Time: 09:40 Pt seen for followup re: lower GI bleed. says she feels okay. No bowel movements yet. - Objective Resuscitation Status - Order Detail: 03/26/19 13:57 Resuscitation Status Routine Resuscitation Status: FULL: Full Resuscitation Vital Signs & Weight: Vital Signs (12 hours) Temp Pulse Resp BP Pulse Ox 03/30/19 08:11 98.1 F 70 16 110/65 97 03/30/19 04:00 98.1 F 70 18 118/70 95 Weight Admit Weight 240 lb 4.862 oz Weight 240 lb 4.862 oz I&O: 03/29/19 03/30/19 03/31/19 06:59 06:59 06:59 Intake Total 1680 480 Balance 1680 480 Result Diagrams: 03/30/19 05:37 03/30/19 05:37 Additional Labs: Accuchecks 03/29/19 23:51 POC Glucose 195 H Phys Exam - Physical Examination Morbid obesity HEENT: moist MMs Neck: supple Respiratory: clear to auscultation bilateral Cardiovascular: RRR Gastrointestinal: soft Neurological: moves all 4 limbs Psychiatric: normal affect Dx/Plan (1) Lower GI bleed Code(s): K92.2 - GASTROINTESTINAL HEMORRHAGE, UNSPECIFIED Status: Acute Comment: ASA and Brilinta on hold. Follow hemoglobin. (2) Anemia associated with acute blood loss Code(s): D62 - ACUTE POSTHEMORRHAGIC ANEMIA Status: Acute Comment: secondary to lower GI bleed. Hb improved to 8.4 after pRBC transfusion. (3) CAD (coronary artery disease) Code(s): I25.10 - ATHSCL HEART DISEASE OF [place] CORONARY ARTERY W/O ANG PCTRS Status: Chronic Comment: stable. (4) Wound, open, leg Code(s): S81.809A - UNSPECIFIED OPEN WOUND, UNSPECIFIED LOWER LEG, INIT ENCNTR Status: Chronic Comment: Wound care following (5) DM2 (diabetes mellitus, type 2) Status: Chronic Comment: controlled (6) ESRD (end stage renal disease) on dialysis Code(s): N18.6 - END STAGE RENAL DISEASE; Z99.2 - DEPENDENCE ON RENAL DIALYSIS Status: Chronic Comment: peritoneal dialysis while in hospital (7) HTN (hypertension) Code(s): I10 - ESSENTIAL (PRIMARY) HYPERTENSION Status: Chronic Comment: controlled (8) Morbid obesity Code(s): E66.01 - MORBID (SEVERE) OBESITY DUE TO EXCESS CALORIES Status: Chronic - Plan * . Plan to start Plavix at half dose when hemoglobin stable. Review of Systems - Review of Systems Respiratory: negative: Cough, Shortness of Breath, SOB with Excertion, Pleuritic Pain, Wheezing Cardiovascular: negative: chest pain, palpitations, orthopnea, paroxysmal nocturnal dyspnea, edema, light headedness - Medications/Allergies Allergies/Adverse Reactions: Allergies Allergy/AdvReac Type Severity Reaction Status Date / Time iodine Allergy Verified 03/26/19 13:29 meperidine [From Demerol] Allergy Verified 03/17/19 12:39 Penicillins Allergy Verified 03/17/19 12:39 Medications: Current Medications Hydrocodone Bitart/Acetaminophen ([place] 5/325) 1 tab PO Q6H PRN PRN Reason: Pain Last Admin: 03/28/19 08:03 Dose: 1 tab Amiodarone HCl (Cordarone) 200 mg PO DAILY [facility] Last Admin: 03/30/19 08:30 Dose: 200 mg Amitriptyline HCl (Elavil) 10 mg PO HS [facility] Last Admin: 03/29/19 20:06 Dose: 10 mg Atorvastatin Calcium (Lipitor) 20 mg PO HS [facility] Last Admin: 03/29/19 20:05 Dose: 20 mg Dextrose/Water (Dextrose 50%) 25 gm SLOW IVP PRN PRN PRN Reason: Hypoglycemia Diazepam (Valium) 15 mg PO DAILY [facility] Last Admin: 03/30/19 08:30 Dose: Not Given Docusate Sodium (Colace) 100 mg PO BID [facility] Last Admin: 03/30/19 08:26 Dose: 100 mg Gabapentin (Neurontin) 300 mg PO TID [facility] Last Admin: 03/30/19 14:05 Dose: 300 mg Glucagon (Glucagon) 1 mg IM PRN PRN PRN Reason: Hypoglycemia Insulin Glargine 28 units/ (Miscellaneous Medication) 0.28 mls @ 0 mls/hr SC QAM [facility] Last Admin: 03/30/19 08:33 Dose: 0.28 mls Dextrose/Water (D5w) 1,000 mls @ 0 mls/hr IV .Q0M PRN PRN Reason: Hypoglycemia Insulin Human Lispro (Humalog) 0 units SC .MILD SLIDING SCALE PRN PRN Reason: Mild Correctional Scale Levothyroxine Sodium (Synthroid) 125 mcg PO 0600 [facility] Last Admin: 03/30/19 05:50 Dose: 125 mcg Metoclopramide HCl (Reglan) 10 mg PO ACHS [facility] Last Admin: 03/30/19 11:38 Dose: 10 mg Pantoprazole Sodium (Protonix) 40 mg IVP DAILY [facility] Last Admin: 03/30/19 08:31 Dose: 40 mg Sertraline HCl (Zoloft) 50 mg PO DAILY [facility] Last Admin: 03/30/19 08:30 Dose: 50 mg Sevelamer Carbonate (Renvela) 1,600 mg PO TID-WM [facility] Last Admin: 03/30/19 11:42 Dose: 1,600 mg Sodium Chloride (Flush - Normal Saline) 10 ml IVF PRN PRN PRN Reason: Saline Flush Sodium Chloride (Normal Saline Pf) 10 ml FS PRN PRN PRN Reason: RECONSTITUTION
--- NOTE | 2019-03-30 16:31 | PRG ---
DATE OF SERVICE: 03/30/2019 SUBJECTIVE: Ms. Pandya again is pretty lethargic today. She does wake up and interactive, but she falls asleep and not stimulated. She has had no bowel movement today. OBJECTIVE: VITAL SIGNS: Temperature is 98.1, pulse 70, blood pressure 110/65. GENERAL: She is in no acute distress. She is awake and responsive, but does fall asleep easily. LUNGS: Clear to auscultation bilaterally. HEART: Regular rate and rhythm. ABDOMEN: Distended, soft, and nontender. Bowel sounds are present. EXTREMITIES: Trace lower extremity edema. LABORATORY DATA: Creatinine is 6.02. Hemoglobin is 8.4. IMPRESSION: 1. Anemia of acute blood loss. Her hemoglobin is stable for a couple of days now. 2. Lethargy. She has been on Valium scheduled in the morning and Neurontin 3 times daily. Perhaps these could be adjusted. RECOMMENDATIONS: 1. Advance diet. 2. I will sign off for now. Please call if GI can be of assistance. Job ID: [id number]
--- NOTE | 2019-03-30 17:32 | PDOC.CTH ---
Cardiology Progress Note - Subjective No new bleeding seen. Her hgb has remained more stable. No chest pain. - Objective Vital Signs Temp Pulse Resp BP Pulse Ox 03/30/19 08:11 98.1 F 70 16 110/65 97 Admit Weight 240 lb 4.862 oz Weight 240 lb 4.862 oz 03/29/19 03/30/19 03/31/19 06:59 06:59 06:59 Intake Total 1680 480 240 Balance 1680 480 240 - Physical Examination General/Neuro: NAD Neck: no JVD present Lungs: unlabored respirations Heart: RRR Abdomen: NT/ND Extremities: + edema B (1+) - Labs Result Diagrams: 03/30/19 05:37 03/30/19 05:37 - Assessment/Plan 1. Acute blood loss anemia 2. GI bleed, (hematochezia), likely diverticular. 3. Recent stenting to LCx with STANLEY. 4. PVD. 5. ESRD on PD. PLAN: - Continue to hold ALEJANDRO today. - Plan to re challenge with plavix half dose daily alone starting tomorrow morning.
[2019-03-30] MEDS: Atorvastatin Calcium 20 MG TAB PO SCH (21:05)
[2019-03-30] MEDS: Amitriptyline HCl 10 MG TAB PO SCH (21:05)
[2019-03-31] MEDS: Levothyroxine Sodium 125 MCG TAB PO SCH (05:32)
[2019-03-31 08:20] LABS: #Eosinphils 0.2 thou/uL (0.0-0.7); #Lymphocytes 0.8 thou/uL (1.20-3.40); #Neutrophils 4.8 thou/uL (1.40-6.50); %Basophils 0.3 % (0.0-1.0); %Lymphocytes 11.6 % (21.0-51.0); %Monocytes 14.6 % (0.0-10.0); %Neutrophils 70.5 % (42.0-75.0); Hemoglobin 8.5 g/dL (12.0-16.0); Mean Corpuscular HGB CONC 32.7 g/dL (32.0-36.0); Mean Corpuscular Hemoglobin 32.1 pg (27.0-31.0); Mean Corpuscular Volume 98.2 fL (78.0-98.0); Platelet Count 270 thou/uL (130-400); RBC Distribution Width 15.6 % (11.5-14.5); Red Blood Cell (RBC) Count 2.64 mill/uL (4.20-5.40); White Blood Cell (WBC) Count 6.8 thou/uL (4.8-10.8)
[2019-03-31 08:25] LABS: Albumin 2.3 g/dL (3.4-4.8); Anion Gap 14 mmol/L (10-20); BUN (Urea Nitrogen) 43 mg/dL (9.8-20.1); BUN/Creatinine Ratio 6.98; Calc. Creatinine Clearance 16 mL/min (70-130); Calcium 8.2 mg/dL (7.8-10.44); Carbon Dioxide 26 mmol/L (23-31); Chloride 97 mmol/L (98-107); Estimated GFR-MDRD 7; Glucose 103 mg/dL (80-115); Phosphorus 5.4 mg/dL (2.3-4.7); Potassium 3.7 mmol/L (3.5-5.1); Sodium 133 mmol/L (136-145)
--- NOTE | 2019-03-31 08:45 | PRG ---
DATE OF SERVICE: 03/31/2019 SUBJECTIVE: Patient was seen and examined at bedside and overnight events noted. Patient denies any shortness of breath or chest pain or palpitation. No history of nausea or vomiting or diarrhea or fever or chills or cramps. OBJECTIVE: GENERAL: This is a morbidly obese female, in no apparent distress. VITAL SIGNS: Temperature . Pulse 72. Respiratory rate 20. Blood pressure 100/62. HEENT: Atraumatic, normocephalic. Oral mucosa is moist NECK: Supple. CARDIOVASCULAR: S1, S2 heard. Rate and rhythm regular. RESPIRATORY: Clear to auscultation. GASTROINTESTINAL: Abdomen is soft. MUSCULOSKELETAL: No tenderness. No edema. DERMATOLOGIC: No skin rash. NEUROLOGIC: Alert and awake and oriented X3. No focal neurologic deficits. Moving all the extremities. PSYCHIATRIC: Mood and affect normal. LABORATORY DATA: None done today. ASSESSMENT AND PLAN: 1. End-stage renal disease. Continue on peritoneal dialysis as tolerated. 2. Hypertension, stable. 3. Anemia. 4. Edema . 5. Hypokalemia. Monitor and replace as tolerated. 6. Continue dialysis as tolerated. Job ID: [id number]
[2019-03-31] MEDS: Metoclopramide HCl 10 MG TAB PO SCH ×4 (08:54→20:43)
[2019-03-31] MEDS: Amiodarone 200 MG TAB PO SCH (08:54)
[2019-03-31] MEDS: Sevelamer Carbonate 800 MG TAB PO SCH ×3 (08:54→17:32)
[2019-03-31] MEDS: Docusate 100 MG CAP PO SCH ×2 (08:54→20:43)
[2019-03-31] MEDS: Pantoprazole 40 MG VIAL IVP SCH (08:54)
[2019-03-31] MEDS: Insulin Glargine 28 UNITS in Pre-Filled Syringe 1 EACH SC SCH (08:54)
[2019-03-31] MEDS: Gabapentin 300 MG CAP PO SCH (08:55)
[2019-03-31] MEDS: Diazepam 5 MG TAB PO SCH (08:55)
--- NOTE | 2019-03-31 13:10 | PDOC.PN ---
- Subjective Encounter Start Date: 03/31/19 Encounter Start Time: 07:35 Subjective: lethargic, no sob or abd pain - Objective Resuscitation Status - Order Detail: 03/26/19 13:57 Resuscitation Status Routine Resuscitation Status: FULL: Full Resuscitation MAR Reviewed: Yes Vital Signs & Weight: Vital Signs (12 hours) Temp Pulse Resp BP Pulse Ox 03/31/19 08:00 98.2 F 79 20 111/66 97 03/31/19 03:30 98 F 73 20 97/63 95 Weight Admit Weight 240 lb 4.862 oz Weight 240 lb 4.862 oz I&O: 03/30/19 03/31/19 04/01/19 06:59 06:59 06:59 Intake Total 480 3400 Output Total 40 Balance 480 3360 Result Diagrams: 03/31/19 07:51 03/31/19 07:51 Additional Labs: Accuchecks 03/31/19 11:59 POC Glucose 88 Phys Exam - Physical Examination HEENT: PERRLA, moist MMs Neck: no JVD, supple Respiratory: no wheezing, no rales Cardiovascular: RRR, no significant murmur Gastrointestinal: soft, non-tender, positive bowel sounds Musculoskeletal: no edema, pulses present Neurological: non-focal, moves all 4 limbs Dx/Plan (1) Anemia associated with acute blood loss Code(s): D62 - ACUTE POSTHEMORRHAGIC ANEMIA Status: Acute Comment: secondary to lower GI bleed. Got 2 u PRBC transfusion. (2) Lower GI bleed Code(s): K92.2 - GASTROINTESTINAL HEMORRHAGE, UNSPECIFIED Status: Acute (3) Morbid obesity Code(s): E66.01 - MORBID (SEVERE) OBESITY DUE TO EXCESS CALORIES Status: Chronic (4) CAD (coronary artery disease) Code(s): I25.10 - ATHSCL HEART DISEASE OF [place] CORONARY ARTERY W/O ANG PCTRS Status: Chronic Qualifiers: Coronary Disease-Associated Artery/Lesion type: [place] artery [place] vs. transplanted heart: [place] heart Associated angina: without angina Qualified Code(s): I25.10 - Atherosclerotic heart disease of [place] coronary artery without angina pectoris Comment: stable. (5) DM2 (diabetes mellitus, type 2) Status: Chronic Qualifiers: Diabetes mellitus terminal press operator insulin use: with terminal press operator use Diabetes mellitus complication status: with kidney complications Diabetes mellitus complication detail: with chronic kidney disease Chronic kidney disease stage : on chronic dialysis Qualified Code(s): E11.22 - Type 2 diabetes mellitus with diabetic chronic kidney disease; N18.6 - End stage renal disease; Z79.4 - termite helper (current) use of insulin; Z99.2 - Dependence on renal dialysis Comment: controlled (6) ESRD (end stage renal disease) on dialysis Code(s): N18.6 - END STAGE RENAL DISEASE; Z99.2 - DEPENDENCE ON RENAL DIALYSIS Status: Chronic Comment: on peritoneal dialysis (7) HTN (hypertension) Code(s): I10 - ESSENTIAL (PRIMARY) HYPERTENSION Status: Chronic Qualifiers: Hypertension type: essential hypertension Qualified Code(s): I10 - Essential (primary) hypertension Comment: controlled (8) Pacemaker Code(s): Z95.0 - PRESENCE OF CARDIAC PACEMAKER Status: Chronic (9) Paroxysmal atrial fibrillation Code(s): I48.0 - PAROXYSMAL ATRIAL FIBRILLATION Status: Chronic Comment: in sinus now - Plan has severe deconditioning, will need rehab/placement -: h/h is stable, got PD overnight -: dc librium, watch for withdrawal seizure if any -: decrease neurontin to 100mg bid, continue elavil and zoloft -: is on amiodarone, reglan, lipitor, lantus, protonix and reglan * . watch for extrapyrimidal side effects, if still drowsy in am will get imaging of brain PT to mobilize more as tolerated, oob to chair Fall precautions Review of Systems - Medications/Allergies Allergies/Adverse Reactions: Allergies Allergy/AdvReac Type Severity Reaction Status Date / Time iodine Allergy Verified 03/26/19 13:29 meperidine [From Demerol] Allergy Verified 03/17/19 12:39 Penicillins Allergy Verified 03/17/19 12:39 Medications: Current Medications Hydrocodone Bitart/Acetaminophen ([place] 5/325) 1 tab PO Q6H PRN PRN Reason: Pain Last Admin: 03/28/19 08:03 Dose: 1 tab Amiodarone HCl (Cordarone) 200 mg PO DAILY [facility] Last Admin: 03/31/19 08:54 Dose: 200 mg Amitriptyline HCl (Elavil) 10 mg PO HS [facility] Last Admin: 03/30/19 21:05 Dose: 10 mg Atorvastatin Calcium (Lipitor) 20 mg PO HS [facility] Last Admin: 03/30/19 21:05 Dose: 20 mg Dextrose/Water (Dextrose 50%) 25 gm SLOW IVP PRN PRN PRN Reason: Hypoglycemia Docusate Sodium (Colace) 100 mg PO BID [facility] Last Admin: 03/31/19 08:54 Dose: 100 mg Gabapentin (Neurontin) 100 mg PO BID [facility] Glucagon (Glucagon) 1 mg IM PRN PRN PRN Reason: Hypoglycemia Insulin Glargine 28 units/ (Miscellaneous Medication) 0.28 mls @ 0 mls/hr SC QAM [facility] Last Admin: 03/31/19 08:54 Dose: 0.28 mls Dextrose/Water (D5w) 1,000 mls @ 0 mls/hr IV .Q0M PRN PRN Reason: Hypoglycemia Insulin Human Lispro (Humalog) 0 units SC .MILD SLIDING SCALE PRN PRN Reason: Mild Correctional Scale Levothyroxine Sodium (Synthroid) 125 mcg PO 0600 [facility] Last Admin: 03/31/19 05:32 Dose: 125 mcg Metoclopramide HCl (Reglan) 10 mg PO ACHS [facility] Last Admin: 03/31/19 12:15 Dose: 10 mg Pantoprazole Sodium (Protonix) 40 mg PO DAILY [facility] Sertraline HCl (Zoloft) 50 mg PO DAILY [facility] Last Admin: 03/31/19 08:55 Dose: Not Given Sevelamer Carbonate (Renvela) 1,600 mg PO TID-WM [facility] Last Admin: 03/31/19 12:15 Dose: 1,600 mg Sodium Chloride (Flush - Normal Saline) 10 ml IVF PRN PRN PRN Reason: Saline Flush Sodium Chloride (Normal Saline Pf) 10 ml FS PRN PRN PRN Reason: RECONSTITUTION
--- NOTE | 2019-03-31 17:56 | PDOC.CTH ---
Cardiology Progress Note - Subjective No new issues. No more bleeding. Hgb stable. - Objective Vital Signs Temp Pulse Pulse Resp BP BP Pulse Ox 03/31/19 14:13 76 126/74 03/31/19 08:00 98.2 F 79 20 111/66 97 Pulse Ox 03/31/19 14:13 97 03/31/19 08:00 Admit Weight 240 lb 4.862 oz Weight 240 lb 4.862 oz 03/30/19 03/31/19 04/01/19 06:59 06:59 06:59 Intake Total 480 3400 Output Total 40 Balance 480 3360 - Physical Examination General/Neuro: alert & oriented x3, NAD Neck: no JVD present Lungs: unlabored respirations Heart: RRR Abdomen: NT/ND Extremities: + edema B (1+) - Labs Result Diagrams: 03/31/19 07:51 03/31/19 07:51 - Assessment/Plan 1. Acute blood loss anemia 2. GI bleed, (hematochezia), likely diverticular. 3. Recent stenting to LCx with STANLEY. 4. PVD. 5. ESRD on PD. PLAN: - Start Plavix half dose. - Monitor Hgb.
[2019-03-31] MEDS: Gabapentin 100 MG CAP PO SCH (20:43)
[2019-03-31] MEDS: Amitriptyline HCl 10 MG TAB PO SCH (20:43)
[2019-03-31] MEDS: Atorvastatin Calcium 20 MG TAB PO SCH (20:43)
[2019-04-01] MEDS: Levothyroxine Sodium 125 MCG TAB PO SCH (05:31)
--- NOTE | 2019-04-01 08:47 | PRG ---
DATE OF SERVICE: 04/01/2019 SUBJECTIVE: Ms. Pandya is sleepy today, but wakes up appropriately to verbal stimulation. OBJECTIVE: VITAL SIGNS: Blood pressure 111/63, pulse 76 and regular. LUNGS: Clear. CARDIAC: Normal S1, normal S2. ABDOMEN: Obese. EXTREMITIES: No edema. PERTINENT LABORATORY DATA: Hemoglobin was stable yesterday at 8.3. ASSESSMENT: 1. Recent stenting of the circumflex with drug coated stent. 2. Gastrointestinal bleed thought to be possibly diverticular from the notes. No recurrence. The patient was on aspirin and Brilinta at that time. PLAN: 1. She is going to go back on clopidogrel 37.5 mg a day. 2. I would recommend starting aspirin 81 mg a day as well. If the patient has stent thrombosis that would be a devastating problem for this patient. The note indicates she is allergic to iodine and would likely not be a candidate for acute intervention. Prognosis would be poor if that occur. If she has recurrent bleeding, may need to try just one anti-platelet drug, but for now we will hopefully have her tolerate low dose of clopidogrel as well as reduced dose of aspirin. Job ID: [id number]
[2019-04-01] MEDS: Docusate 100 MG CAP PO SCH ×2 (09:22→20:47)
[2019-04-01] MEDS: Insulin Glargine 28 UNITS in Pre-Filled Syringe 1 EACH SC SCH (09:22)
[2019-04-01] MEDS: Sevelamer Carbonate 800 MG TAB PO SCH ×3 (09:22→16:44)
[2019-04-01] MEDS: Gabapentin 100 MG CAP PO SCH (09:22)
[2019-04-01] MEDS: Amiodarone 200 MG TAB PO SCH (09:22)
[2019-04-01] MEDS: Metoclopramide HCl 10 MG TAB PO SCH ×2 (09:23→11:09)
[2019-04-01 10:17] LABS: Mean Corpuscular HGB CONC 33.1 g/dL (32.0-36.0); Mean Corpuscular Hemoglobin 32.1 pg (27.0-31.0); Mean Corpuscular Volume 97.1 fL (78.0-98.0); Mean Platelet Volume 6.8 fL (7.4-10.4); Platelet Count 268 thou/uL (130-400); RBC Distribution Width 15.4 % (11.5-14.5); Red Blood Cell (RBC) Count 2.79 mill/uL (4.20-5.40); White Blood Cell (WBC) Count 7.7 thou/uL (4.8-10.8)
[2019-04-01 10:54] LABS: Band 1 % (5-11); Eosinophils 2 % (0-10); Lymphocytes 14 % (21-51); MDiff Complete? YES; Monocytes 8 % (0-10); Neutrophil 75 % (42-75); Platelet Morphology Comment Appears Adequate; Polychromasia SLIGHT = 2-3 cells (100X) (0-2/hpf)
--- NOTE | 2019-04-01 11:04 | PRG ---
DATE OF SERVICE: 04/01/2019 SUBJECTIVE: Patient was seen and examined at bedside and overnight events noted. Patient denies any shortness of breath or chest pain or palpitation. No history of nausea or vomiting or diarrhea or fever or chills or cramps. OBJECTIVE: GENERAL: This is a morbidly obese female, in no acute distress. VITAL SIGNS: Temperature 97, pulse 80, respiratory rate 16, blood pressure 132/70. HEENT: Atraumatic, normocephalic. Oral mucosa is moist NECK: Supple. CARDIOVASCULAR: S1, S2 heard. Rate and rhythm regular. RESPIRATORY: Clear to auscultation. GASTROINTESTINAL: Abdomen is soft. MUSCULOSKELETAL: No tenderness. No edema. DERMATOLOGIC: No skin rash. NEUROLOGIC: Alert and awake and oriented X3. No focal neurologic deficits. Moving all the extremities. PSYCHIATRIC: Mood and affect normal. LABORATORY DATA: Labs not done today. ASSESSMENT AND PLAN: 1. End-stage renal disease, continue on peritoneal dialysis. 2. Hypertension. 3. Anemia. 4. Edema, controlled. 5. Hypokalemia. Replace and monitor. 6. Recheck labs in the morning. Continue PD as tolerated. Job ID: [id number]
[2019-04-01] MEDS: Clopidogrel Bisulfate 75 MG TAB PO SCH (11:06)
[2019-04-01] MEDS: Aspirin 81 mg Enteric Coated Tablet PO SCH (11:07)
--- NOTE | 2019-04-01 12:41 | CT ---
CT Brain WO Con: 04/01/2019 11:35 AM CLINICAL HISTORY: Lethargy concern for intracranial hemorrhage. IMAGING TECHNIQUE: Multiple CT images were obtained of the brain without IV contrast. COMPARISON: None. FINDINGS: Infarct: No acute infarct evident. Hemorrhage: None.. Hydrocephalus: None.. Basal cisterns: Normal.. Cerebral parenchyma: There is mild chronic small vessel white matter ischemic change.. Midline shift: None.. Cerebellum: Normal. Brainstem: Normal. OTHER: Calvarium: Intact.. Visualized Paranasal sinuses: Clear.. Extracranial soft tissues:Normal. IMPRESSION: No acute intracranial abnormality. Mild chronic small vessel white matter ischemic change.
--- NOTE | 2019-04-01 14:05 | PDOC.PN ---
- Subjective Encounter Start Date: 04/01/19 Encounter Start Time: 13:00 Subjective: lethargic but responds to verbal stimuli before falling asleep -: has not ambulated with PT yet - Objective Resuscitation Status - Order Detail: 03/26/19 13:57 Resuscitation Status Routine Resuscitation Status: FULL: Full Resuscitation MAR Reviewed: Yes Vital Signs & Weight: Vital Signs (12 hours) Temp Pulse Resp BP Pulse Ox 04/01/19 11:14 99.1 F 84 16 120/58 L 100 04/01/19 08:17 98.7 F 80 16 132/70 98 04/01/19 08:00 98 Weight Admit Weight 240 lb 4.862 oz Weight 240 lb 4.862 oz I&O: 03/31/19 04/01/19 04/02/19 06:59 06:59 06:59 Intake Total 3400 240 Output Total 40 Balance 3360 240 Result Diagrams: 04/01/19 10:01 03/31/19 07:51 Additional Labs: Accuchecks 03/31/19 03/31/19 20:33 16:42 POC Glucose 159 H 67 L Phys Exam - Physical Examination HEENT: PERRLA, moist MMs Neck: no JVD, supple Respiratory: no wheezing, no rales Cardiovascular: RRR, no significant murmur Gastrointestinal: soft, non-tender, positive bowel sounds Musculoskeletal: no edema, pulses present Neurological: non-focal, moves all 4 limbs Dx/Plan (1) Anemia associated with acute blood loss Code(s): D62 - ACUTE POSTHEMORRHAGIC ANEMIA Status: Acute Comment: secondary to lower GI bleed. Got 2 u PRBC transfusion. (2) Lower GI bleed Code(s): K92.2 - GASTROINTESTINAL HEMORRHAGE, UNSPECIFIED Status: Resolved (3) Morbid obesity Code(s): E66.01 - MORBID (SEVERE) OBESITY DUE TO EXCESS CALORIES Status: Chronic (4) CAD (coronary artery disease) Code(s): I25.10 - ATHSCL HEART DISEASE OF [place] CORONARY ARTERY W/O ANG PCTRS Status: Chronic Qualifiers: Coronary Disease-Associated Artery/Lesion type: [place] artery [place] vs. transplanted heart: [place] heart Associated angina: without angina Qualified Code(s): I25.10 - Atherosclerotic heart disease of [place] coronary artery without angina pectoris Comment: stable. (5) DM2 (diabetes mellitus, type 2) Status: Chronic Qualifiers: Diabetes mellitus terminal operator insulin use: with terminal operator use Diabetes mellitus complication status: with kidney complications Diabetes mellitus complication detail: with chronic kidney disease Chronic kidney disease stage : on chronic dialysis Qualified Code(s): E11.22 - Type 2 diabetes mellitus with diabetic chronic kidney disease; N18.6 - End stage renal disease; Z79.4 - MCFP (current) use of insulin; Z99.2 - Dependence on renal dialysis Comment: controlled (6) ESRD (end stage renal disease) on dialysis Code(s): N18.6 - END STAGE RENAL DISEASE; Z99.2 - DEPENDENCE ON RENAL DIALYSIS Status: Chronic Comment: on peritoneal dialysis (7) HTN (hypertension) Code(s): I10 - ESSENTIAL (PRIMARY) HYPERTENSION Status: Chronic Qualifiers: Hypertension type: essential hypertension Qualified Code(s): I10 - Essential (primary) hypertension Comment: controlled (8) Pacemaker Code(s): Z95.0 - PRESENCE OF CARDIAC PACEMAKER Status: Chronic (9) Paroxysmal atrial fibrillation Code(s): I48.0 - PAROXYSMAL ATRIAL FIBRILLATION Status: Chronic Comment: in sinus now (10) Physical deconditioning Code(s): R53.81 - OTHER MALAISE Status: Acute Comment: severe - Plan CT brain shows no ac changes -: will dc neurontin, norco and reglan to see if her lethargy resolves -: encourage po intake -: might have to change to HD if above doesn't improve lethargy -: prognosis guarded, palliative care consultation * . is on asp, 1/2 plavix, amiodarone, lipitor,elavil, zoloft and lantus. Review of Systems - Medications/Allergies Allergies/Adverse Reactions: Allergies Allergy/AdvReac Type Severity Reaction Status Date / Time iodine Allergy Verified 03/26/19 13:29 meperidine [From Demerol] Allergy Verified 03/17/19 12:39 Penicillins Allergy Verified 03/17/19 12:39 Medications: Current Medications Amiodarone HCl (Cordarone) 200 mg PO DAILY [facility] Last Admin: 04/01/19 09:22 Dose: 200 mg Amitriptyline HCl (Elavil) 10 mg PO HS [facility] Last Admin: 03/31/19 20:43 Dose: 10 mg Aspirin (Ecotrin) 81 mg PO DAILY [facility] Last Admin: 04/01/19 11:07 Dose: 81 mg Atorvastatin Calcium (Lipitor) 20 mg PO HS [facility] Last Admin: 03/31/19 20:43 Dose: 20 mg Clopidogrel Bisulfate (Plavix) 37.5 mg PO DAILY [facility] Last Admin: 04/01/19 11:06 Dose: 37.5 mg Dextrose/Water (Dextrose 50%) 25 gm SLOW IVP PRN PRN PRN Reason: Hypoglycemia Docusate Sodium (Colace) 100 mg PO BID [facility] Last Admin: 04/01/19 09:22 Dose: 100 mg Glucagon (Glucagon) 1 mg IM PRN PRN PRN Reason: Hypoglycemia Insulin Glargine 28 units/ (Miscellaneous Medication) 0.28 mls @ 0 mls/hr SC QAM [facility] Last Admin: 04/01/19 09:22 Dose: 0.28 mls Dextrose/Water (D5w) 1,000 mls @ 0 mls/hr IV .Q0M PRN PRN Reason: Hypoglycemia Insulin Human Lispro (Humalog) 0 units SC .MILD SLIDING SCALE PRN PRN Reason: Mild Correctional Scale Levothyroxine Sodium (Synthroid) 125 mcg PO 0600 [facility] Last Admin: 04/01/19 05:31 Dose: 125 mcg Pantoprazole Sodium (Protonix) 40 mg PO DAILY [facility] Last Admin: 04/01/19 09:22 Dose: 40 mg Sertraline HCl (Zoloft) 50 mg PO DAILY [facility] Last Admin: 04/01/19 10:19 Dose: 50 mg Sevelamer Carbonate (Renvela) 1,600 mg PO TID-WM [facility] Last Admin: 04/01/19 11:09 Dose: 1,600 mg Sodium Chloride (Flush - Normal Saline) 10 ml IVF PRN PRN PRN Reason: Saline Flush Sodium Chloride (Normal Saline Pf) 10 ml FS PRN PRN PRN Reason: RECONSTITUTION
[2019-04-01] MEDS: Amitriptyline HCl 10 MG TAB PO SCH (20:47)
[2019-04-01] MEDS: Atorvastatin Calcium 20 MG TAB PO SCH (20:47)
[2019-04-02] MEDS: Levothyroxine Sodium 125 MCG TAB PO SCH (05:23)
[2019-04-02 08:09] LABS: Anion Gap 13 mmol/L (10-20); BUN (Urea Nitrogen) 41 mg/dL (9.8-20.1); Calc. Creatinine Clearance 16 mL/min (70-130); Calcium 8.2 mg/dL (7.8-10.44); Carbon Dioxide 29 mmol/L (23-31); Chloride 97 mmol/L (98-107); Estimated GFR-MDRD 7; Glucose 74 mg/dL (80-115); Potassium 3.4 mmol/L (3.5-5.1); Sodium 136 mmol/L (136-145)
[2019-04-02] MEDS: Sevelamer Carbonate 800 MG TAB PO SCH ×3 (08:41→18:20)
[2019-04-02] MEDS: Docusate 100 MG CAP PO SCH ×2 (08:41→19:42)
[2019-04-02] MEDS: Insulin Glargine 28 UNITS in Pre-Filled Syringe 1 EACH SC SCH (08:41)
[2019-04-02] MEDS: Amiodarone 200 MG TAB PO SCH (08:41)
[2019-04-02 11:02] LABS: Hemoglobin 7.9 g/dL (12.0-16.0)
[2019-04-02] MEDS: Aspirin 81 mg Enteric Coated Tablet PO SCH (11:25)
[2019-04-02] MEDS: Clopidogrel Bisulfate 75 MG TAB PO SCH (11:25)
[2019-04-02 12:39] LABS: HBSAg Index 0.33 S/CO (0-0.99); Hep B Core Total Ab Non-Reactive (NonReactive); Hep B Surf Ag Non-Reactive S/CO (NonReactive)
--- NOTE | 2019-04-02 12:39 | PRG ---
DATE OF SERVICE: 04/02/2019 SUBJECTIVE: The patient is slightly confused. OBJECTIVE: GENERAL: This is a morbidly obese female, confused. VITAL SIGNS: Temperature 98.4, pulse 77, respirations 19, blood pressure 92/ 52. NEUROLOGICAL: Confused. Musculoskeletal : No tenderness, No edema HEENT: Atraumatic normocephalic Neck: Supple Cardiovascular: S1S2 heard, Rate and rhythm regular Respiratory: Clear to auscultation Gastrointestinal: Abdomen is soft Dermatologic : No skin rash Neurologic: Alert and awake and oriented X3 No focal neurologic deficits. Moving all the extremities. Psychiatric: Mood and affect normal LABORATORY DATA: Potassium is 3.4, BUN is 41, creatinine is 6.03. ASSESSMENT AND PLAN: 1. End-stage renal disease, on peritoneal dialysis. Had good urine output. The patient remains confused and there were concerns about decreased clearance of her sedative and psychotropic drugs from PD. Plan is to have hemodialysis if tolerated today for 3 hours for clearance. 2. Altered mentation. We will have hemodialysis to see if hemo-clearance will help with some of the drug clearance and improve her mentation. 3. Hypotension. 4. Anemia. 5. Edema. 6. Hypokalemia. Plan is to have hemodialysis if tolerated. The patient does have a fistula with decent thrill. We will follow. Job ID: [id number] MTDD
--- NOTE | 2019-04-02 13:17 | PDOC.PN ---
- Subjective Encounter Start Date: 04/02/19 Encounter Start Time: 09:30 Subjective: slightly more awake than yesterday -: ate her breakfast, not fully oriented -: no sob - Objective Resuscitation Status - Order Detail: 03/26/19 13:57 Resuscitation Status Routine Resuscitation Status: FULL: Full Resuscitation MAR Reviewed: Yes Vital Signs & Weight: Vital Signs (12 hours) Temp Pulse Resp BP Pulse Ox 04/02/19 11:00 98 F 81 20 116/66 91 L 04/02/19 08:00 98.4 F 76 17 92/52 L 97 Weight Admit Weight 240 lb 4.862 oz Weight 240 lb 4.862 oz I&O: 04/01/19 04/02/19 04/03/19 06:59 06:59 06:59 Intake Total 240 1370 Balance 240 1370 Result Diagrams: 04/02/19 07:28 04/02/19 07:33 Additional Labs: Accuchecks 04/02/19 04/02/19 04/01/19 12:07 05:37 20:46 POC Glucose 54 L* 126 H 127 H Phys Exam - Physical Examination HEENT: PERRLA, sclera anicteric Neck: no JVD, supple Respiratory: no wheezing, no rales Cardiovascular: RRR, no significant murmur Gastrointestinal: soft, non-tender, positive bowel sounds Musculoskeletal: pulses present, edema present Neurological: non-focal, moves all 4 limbs Dx/Plan (1) Anemia associated with acute blood loss Code(s): D62 - ACUTE POSTHEMORRHAGIC ANEMIA Status: Acute Comment: secondary to lower GI bleed. Got 2 u PRBC transfusion. (2) Lower GI bleed Code(s): K92.2 - GASTROINTESTINAL HEMORRHAGE, UNSPECIFIED Status: Resolved (3) Morbid obesity Code(s): E66.01 - MORBID (SEVERE) OBESITY DUE TO EXCESS CALORIES Status: Chronic (4) CAD (coronary artery disease) Code(s): I25.10 - ATHSCL HEART DISEASE OF [place] CORONARY ARTERY W/O ANG PCTRS Status: Chronic Qualifiers: Coronary Disease-Associated Artery/Lesion type: [place] artery [place] vs. transplanted heart: [place] heart Associated angina: without angina Qualified Code(s): I25.10 - Atherosclerotic heart disease of [place] coronary artery without angina pectoris Comment: stable. (5) DM2 (diabetes mellitus, type 2) Status: Chronic Qualifiers: Diabetes mellitus end stapler insulin use: with group home use Diabetes mellitus complication status: with kidney complications Diabetes mellitus complication detail: with chronic kidney disease Chronic kidney disease stage : on chronic dialysis Qualified Code(s): E11.22 - Type 2 diabetes mellitus with diabetic chronic kidney disease; N18.6 - End stage renal disease; Z79.4 - retirement (current) use of insulin; Z99.2 - Dependence on renal dialysis Comment: controlled (6) ESRD (end stage renal disease) on dialysis Code(s): N18.6 - END STAGE RENAL DISEASE; Z99.2 - DEPENDENCE ON RENAL DIALYSIS Status: Chronic Comment: on peritoneal dialysis (7) HTN (hypertension) Code(s): I10 - ESSENTIAL (PRIMARY) HYPERTENSION Status: Chronic Qualifiers: Hypertension type: essential hypertension Qualified Code(s): I10 - Essential (primary) hypertension Comment: controlled (8) Pacemaker Code(s): Z95.0 - PRESENCE OF CARDIAC PACEMAKER Status: Chronic (9) Paroxysmal atrial fibrillation Code(s): I48.0 - PAROXYSMAL ATRIAL FIBRILLATION Status: Chronic Comment: in sinus now (10) Physical deconditioning Code(s): R53.81 - OTHER MALAISE Status: Acute Comment: severe - Plan h/h in am, continue asp, 1/2 dose plavix -: d/w , will have 3 hr HD with no fluid removal -: is off most psychotropic/sedatives and reglan -: continue synthroid, amiodarone, zoloft and lipitor -: PT to mobilize pt as tolerated, needs to be oob/chair * . Review of Systems - Medications/Allergies Allergies/Adverse Reactions: Allergies Allergy/AdvReac Type Severity Reaction Status Date / Time iodine Allergy Verified 03/26/19 13:29 meperidine [From Demerol] Allergy Verified 03/17/19 12:39 Penicillins Allergy Verified 03/17/19 12:39 Medications: Current Medications Amiodarone HCl (Cordarone) 200 mg PO DAILY [facility] Last Admin: 04/02/19 08:41 Dose: 200 mg Amitriptyline HCl (Elavil) 10 mg PO HS [facility] Last Admin: 04/01/19 20:47 Dose: 10 mg Atorvastatin Calcium (Lipitor) 20 mg PO HS [facility] Last Admin: 04/01/19 20:47 Dose: 20 mg Dextrose/Water (Dextrose 50%) 25 gm SLOW IVP PRN PRN PRN Reason: Hypoglycemia Docusate Sodium (Colace) 100 mg PO BID [facility] Last Admin: 04/02/19 08:41 Dose: 100 mg Glucagon (Glucagon) 1 mg IM PRN PRN PRN Reason: Hypoglycemia Insulin Glargine 28 units/ (Miscellaneous Medication) 0.28 mls @ 0 mls/hr SC QAM [facility] Last Admin: 04/02/19 08:41 Dose: 0.28 mls Dextrose/Water (D5w) 1,000 mls @ 0 mls/hr IV .Q0M PRN PRN Reason: Hypoglycemia Insulin Human Lispro (Humalog) 0 units SC .MILD SLIDING SCALE PRN PRN Reason: Mild Correctional Scale Levothyroxine Sodium (Synthroid) 125 mcg PO 0600 [facility] Last Admin: 04/02/19 05:23 Dose: 125 mcg Pantoprazole Sodium (Protonix) 40 mg PO DAILY [facility] Last Admin: 04/02/19 08:41 Dose: 40 mg Sertraline HCl (Zoloft) 50 mg PO DAILY [facility] Last Admin: 04/02/19 08:41 Dose: 50 mg Sevelamer Carbonate (Renvela) 1,600 mg PO TID[facility] Last Admin: 04/02/19 12:02 Dose: 1,600 mg Sodium Chloride (Flush - Normal Saline) 10 ml IVF PRN PRN PRN Reason: Saline Flush Sodium Chloride (Normal Saline Pf) 10 ml FS PRN PRN PRN Reason: RECONSTITUTION
[2019-04-02 13:37] LABS: Hep B Surf AB Reactive (NonReactive)
[2019-04-02 13:41] LABS: HBSAB Concentration 14.64 mIU/mL
[2019-04-02] MEDS: Atorvastatin Calcium 20 MG TAB PO SCH (20:16)
[2019-04-02] MEDS: Amitriptyline HCl 10 MG TAB PO SCH (20:16)
[2019-04-03] MEDS: Levothyroxine Sodium 125 MCG TAB PO SCH (04:33)
[2019-04-03 06:08] LABS: Anion Gap 12 mmol/L (10-20); BUN (Urea Nitrogen) 27 mg/dL (9.8-20.1); Calc. Creatinine Clearance 21 mL/min (70-130); Calcium 8.3 mg/dL (7.8-10.44); Carbon Dioxide 28 mmol/L (23-31); Chloride 99 mmol/L (98-107); Estimated GFR-MDRD 10; Potassium 3.4 mmol/L (3.5-5.1); Sodium 136 mmol/L (136-145)
[2019-04-03 06:14] LABS: Glucose 36 mg/dL (80-115)
[2019-04-03 06:37] LABS: Band 3 % (5-11); Eosinophils 2 % (0-10); Hemoglobin 7.9 g/dL (12.0-16.0); Lymphocytes 14 % (21-51); MDiff Complete? YES; Mean Corpuscular HGB CONC 32.8 g/dL (32.0-36.0); Mean Corpuscular Hemoglobin 32.1 pg (27.0-31.0); Mean Corpuscular Volume 97.9 fL (78.0-98.0); Monocytes 15 % (0-10); Neutrophil 66 % (42-75); Platelet Count 248 thou/uL (130-400); RBC Distribution Width 14.9 % (11.5-14.5); Red Blood Cell (RBC) Count 2.45 mill/uL (4.20-5.40); White Blood Cell (WBC) Count 6.5 thou/uL (4.8-10.8)
[2019-04-03] MEDS: Sevelamer Carbonate 800 MG TAB PO SCH ×3 (08:10→16:36)
[2019-04-03] MEDS: Dextrose 5% in Water 1,000 ML IV SCH (08:10)
[2019-04-03] MEDS: Docusate 100 MG CAP PO SCH ×2 (08:10→19:01)
[2019-04-03] MEDS: Amiodarone 200 MG TAB PO SCH (08:10)
[2019-04-03] MEDS ORDERED: Potassium Chloride 20 MEQ TAB PO SCH (11:45)
--- NOTE | 2019-04-03 11:47 | PDOC.PN ---
- Subjective Encounter Start Date: 04/03/19 Encounter Start Time: 10:45 Subjective: more awake this am -: had HD yesterday with no fluid removal -: responds well to verbal questions, is moving all extremities - Objective Resuscitation Status - Order Detail: 03/26/19 13:57 Resuscitation Status Routine Resuscitation Status: FULL: Full Resuscitation MAR Reviewed: Yes Vital Signs & Weight: Vital Signs (12 hours) Temp Pulse Resp BP BP Pulse Ox 04/03/19 08:00 98.1 F 70 19 173/65 H 98 04/03/19 02:34 97.6 F 77 18 134/62 94 L Weight Admit Weight 240 lb 4.862 oz Weight 240 lb 4.862 oz I&O: 04/02/19 04/03/19 04/04/19 06:59 06:59 06:59 Intake Total 1370 1390 Output Total 800 2400 Balance 570 -1010 Result Diagrams: 04/03/19 05:11 04/03/19 05:11 Additional Labs: Accuchecks 04/03/19 04/02/19 04/02/19 06:38 20:47 13:15 POC Glucose 55 L* 99 62 L 04/02/19 12:07 POC Glucose 54 L* Phys Exam - Physical Examination HEENT: PERRLA, sclera anicteric Neck: no JVD, supple Respiratory: no wheezing, no rales Cardiovascular: RRR, no significant murmur Gastrointestinal: soft, non-tender, positive bowel sounds pd cath+ Musculoskeletal: pulses present, edema present Neurological: non-focal, moves all 4 limbs Dx/Plan (1) Anemia associated with acute blood loss Code(s): D62 - ACUTE POSTHEMORRHAGIC ANEMIA Status: Acute Comment: secondary to lower GI bleed. Got 2 u PRBC transfusion. (2) Lower GI bleed Code(s): K92.2 - GASTROINTESTINAL HEMORRHAGE, UNSPECIFIED Status: Resolved (3) Morbid obesity Code(s): E66.01 - MORBID (SEVERE) OBESITY DUE TO EXCESS CALORIES Status: Chronic (4) CAD (coronary artery disease) Code(s): I25.10 - ATHSCL HEART DISEASE OF [place] CORONARY ARTERY W/O ANG PCTRS Status: Chronic Qualifiers: Coronary Disease-Associated Artery/Lesion type: [place] artery [place] vs. transplanted heart: [place] heart Associated angina: without angina Qualified Code(s): I25.10 - Atherosclerotic heart disease of [place] coronary artery without angina pectoris Comment: stable. (5) DM2 (diabetes mellitus, type 2) Status: Chronic Qualifiers: Diabetes mellitus extermination supervisor insulin use: with long-term use Diabetes mellitus complication status: with kidney complications Diabetes mellitus complication detail: with chronic kidney disease Chronic kidney disease stage : on chronic dialysis Qualified Code(s): E11.22 - Type 2 diabetes mellitus with diabetic chronic kidney disease; N18.6 - End stage renal disease; Z79.4 - bed bug exterminator (current) use of insulin; Z99.2 - Dependence on renal dialysis Comment: controlled (6) ESRD (end stage renal disease) on dialysis Code(s): N18.6 - END STAGE RENAL DISEASE; Z99.2 - DEPENDENCE ON RENAL DIALYSIS Status: Chronic Comment: on peritoneal dialysis (7) HTN (hypertension) Code(s): I10 - ESSENTIAL (PRIMARY) HYPERTENSION Status: Chronic Qualifiers: Hypertension type: essential hypertension Qualified Code(s): I10 - Essential (primary) hypertension Comment: controlled (8) Pacemaker Code(s): Z95.0 - PRESENCE OF CARDIAC PACEMAKER Status: Chronic (9) Paroxysmal atrial fibrillation Code(s): I48.0 - PAROXYSMAL ATRIAL FIBRILLATION Status: Chronic Comment: in sinus now (10) Physical deconditioning Code(s): R53.81 - OTHER MALAISE Status: Acute Comment: severe - Plan has dark stools no active bleed -: transfuse if Hb <7g -: mentation has improved after hemodialysis session yesterday -: needs to mobilize and ambulate with PT, counselled her to exercise while on -: -bed. Continue amiodarone, zoloft, synthroid, lipitor, elavil and protonix * . On Dextrose iv fluid due to persistent hypoglycemia, encourage po intake. Review of Systems - Medications/Allergies Allergies/Adverse Reactions: Allergies Allergy/AdvReac Type Severity Reaction Status Date / Time iodine Allergy Verified 03/26/19 13:29 meperidine [From Demerol] Allergy Verified 03/17/19 12:39 Penicillins Allergy Verified 03/17/19 12:39 Medications: Current Medications Amiodarone HCl (Cordarone) 200 mg PO DAILY [facility] Last Admin: 04/03/19 08:10 Dose: 200 mg Amitriptyline HCl (Elavil) 10 mg PO HS [facility] Last Admin: 04/02/19 20:16 Dose: 10 mg Atorvastatin Calcium (Lipitor) 20 mg PO HS [facility] Last Admin: 04/02/19 20:16 Dose: 20 mg Dextrose/Water (Dextrose 50%) 25 gm SLOW IVP PRN PRN PRN Reason: Hypoglycemia Docusate Sodium (Colace) 100 mg PO BID [facility] Last Admin: 04/03/19 08:10 Dose: 100 mg Glucagon (Glucagon) 1 mg IM PRN PRN PRN Reason: Hypoglycemia Dextrose/Water (D5w) 1,000 mls @ 0 mls/hr IV .Q0M PRN PRN Reason: Hypoglycemia Dextrose/Water (D5w) 1,000 mls @ 50 mls/hr IV .Q20H [facility] Last Admin: 04/03/19 08:10 Dose: 1,000 mls Insulin Human Lispro (Humalog) 0 units SC .MILD SLIDING SCALE PRN PRN Reason: Mild Correctional Scale Levothyroxine Sodium (Synthroid) 125 mcg PO 0600 [facility] Last Admin: 04/03/19 04:33 Dose: 125 mcg Pantoprazole Sodium (Protonix) 40 mg PO DAILY [facility] Last Admin: 04/03/19 08:10 Dose: 40 mg Potassium Chloride (K-Dur) 40 meq PO ONE [facility] Sertraline HCl (Zoloft) 50 mg PO DAILY [facility] Last Admin: 04/03/19 08:10 Dose: 50 mg Sevelamer Carbonate (Renvela) 1,600 mg PO TID-WM [facility] Last Admin: 04/03/19 11:26 Dose: 1,600 mg Sodium Chloride (Flush - Normal Saline) 10 ml IVF PRN PRN PRN Reason: Saline Flush Sodium Chloride (Normal Saline Pf) 10 ml FS PRN PRN PRN Reason: RECONSTITUTION
--- NOTE | 2019-04-03 12:30 | PRG ---
DATE OF SERVICE: 04/03/2019 SUBJECTIVE: Patient was seen and examined at bedside and overnight events noted. Patient denies any shortness of breath or chest pain or palpitation. No history of nausea or vomiting or diarrhea or fever or chills or cramps. OBJECTIVE: GENERAL: Morbidly obese female, in no apparent distress. VITAL SIGNS: Temperature 98.1, pulse 72, respiratory rate 19, blood pressure 134/62. HEENT: Atraumatic, normocephalic. Oral mucosa is moist NECK: Supple. CARDIOVASCULAR: S1, S2 heard. Rate and rhythm regular. RESPIRATORY: Clear to auscultation. GASTROINTESTINAL: Abdomen is soft. MUSCULOSKELETAL: No tenderness. No edema. DERMATOLOGIC: No skin rash. NEUROLOGIC: No focal neurologic deficits. Moving all the extremities. Slightly confused, but awake. PSYCHIATRIC: Mood and affect normal. LABORATORY DATA: Potassium is 3.4, BUN is 27, creatinine is 4.6. ASSESSMENT: 1. End-stage renal disease, had an extra session of hemodialysis. We will continue on peritoneal dialysis from [facility]. 2. Altered mentation, slightly better. 3. Hypotension, stable. 4. Edema, controlled. 5. Anemia. 6. Hypokalemia, replace. 7. We will follow. Job ID: [id number]
--- NOTE | 2019-04-03 16:30 | PRG ---
DATE OF SERVICE: 04/03/2019 SUBJECTIVE: Ms. Pandya is doing okay today. No complaints, but she does appear confused. The patient did have recurrent GI bleeding yesterday after receiving aspirin 81 mg and Plavix 37.5 mg the day before. She did not receive any anti-platelet drugs yesterday. Her hemoglobin went from 9 to 7.9, which was after one aspirin 81 mg and 37.5 mg of Plavix. OBJECTIVE: VITAL SIGNS: Her blood pressure today 170/60, pulse 90. LUNGS: Clear. CARDIAC: Normal S1, normal S2. ASSESSMENT: 1. Recent coronary stent placement. 2. Recurrent gastrointestinal bleeding. PLAN: 1. Anti-platelet drugs are on hold. 2. We will try again with low-dose Plavix on Thursday. We will hold off on any aspirin at the present time. Job ID: [id number]
[2019-04-03] MEDS: Amitriptyline HCl 10 MG TAB PO SCH (20:29)
[2019-04-03] MEDS: Atorvastatin Calcium 20 MG TAB PO SCH (20:29)
[2019-04-04] MEDS: Dextrose 5% in Water 1,000 ML IV SCH ×2 (03:49→23:47)
[2019-04-04] MEDS: Levothyroxine Sodium 125 MCG TAB PO SCH (03:55)
[2019-04-04] MEDS: HumaLOG 300 UNITS/3 ML VIAL SC PRN (05:49)
--- NOTE | 2019-04-04 08:04 | PRG ---
DATE OF SERVICE: 04/04/2019 SUBJECTIVE: Ms. Pandya is sleeping now. She does not awaken easily. OBJECTIVE: VITAL SIGNS: Her blood pressure is 135/74, pulse 86. LUNGS: Clear. CARDIAC: Normal S1. Normal S2. EXTREMITIES: Warm and dry. ASSESSMENT: 1. Recent stent. 2. Recurrent gastrointestinal bleeding. PLAN: 1. We will try again with LOW-dose Plavix 37.5 mg once a day starting tomorrow. 2. No aspirin. 3. Dr. Max to return on Thursday. Job ID: [id number]
[2019-04-04] MEDS: Amiodarone 200 MG TAB PO SCH (08:46)
[2019-04-04] MEDS: Sevelamer Carbonate 800 MG TAB PO SCH ×3 (08:46→17:16)
[2019-04-04] MEDS: Docusate 100 MG CAP PO SCH ×2 (08:46→20:45)
--- NOTE | 2019-04-04 10:24 | PRG ---
DATE OF SERVICE: 04/04/2019 SUBJECTIVE: Patient was seen and examined at bedside and overnight events noted. Patient denies any shortness of breath or chest pain or palpitation. No history of nausea or vomiting or diarrhea or fever or chills or cramps. OBJECTIVE: GENERAL: This is a morbidly obese female, in no apparent distress. VITAL SIGNS: Temperature 98.6. Heart rate 82. Respiratory rate 20. Blood pressure 113/51. HEENT: Atraumatic, normocephalic. Oral mucosa is moist NECK: Supple. CARDIOVASCULAR: S1, S2 heard. Rate and rhythm regular. RESPIRATORY: Clear to auscultation. GASTROINTESTINAL: Abdomen is soft. MUSCULOSKELETAL: No tenderness. No edema. DERMATOLOGIC: No skin rash. NEUROLOGIC: Alert and awake and oriented X3. No focal neurologic deficits. Moving all the extremities. PSYCHIATRIC: Mood and affect normal. LABORATORY DATA: Not done today. ASSESSMENT AND PLAN: 1. End-stage renal disease, continue on dialysis as tolerated. 2. Altered mentation. 3. Edema. 4. Anemia. 5. Hypokalemia. Replace and monitor. 6. Recheck labs and we will follow. Job ID: [id number]
--- NOTE | 2019-04-04 12:39 | PDOC.PN ---
- Subjective Encounter Start Date: 04/04/19 Encounter Start Time: 07:30 Subjective: lethargic, revisited around 9am is more awake and eating breakfast -: moves all extremities - Objective Resuscitation Status - Order Detail: 03/26/19 13:57 Resuscitation Status Routine Resuscitation Status: FULL: Full Resuscitation MAR Reviewed: Yes Vital Signs & Weight: Vital Signs (12 hours) Temp Pulse Resp BP Pulse Ox 04/04/19 08:25 98.0 F 83 20 113/51 L 95 04/04/19 08:00 95 Weight Admit Weight 240 lb 4.862 oz Weight 240 lb 4.862 oz I&O: 04/03/19 04/04/19 04/05/19 06:59 06:59 06:59 Intake Total 1390 2530 Output Total 2400 Balance -1010 2530 Result Diagrams: 04/03/19 05:11 04/03/19 05:11 Additional Labs: Accuchecks 04/04/19 04/04/19 04/03/19 12:14 05:36 20:54 POC Glucose 154 H 259 H 118 H 04/03/19 16:33 POC Glucose 122 H Phys Exam - Physical Examination HEENT: PERRLA, moist MMs Neck: no JVD, supple Respiratory: no wheezing, no rales Cardiovascular: RRR, no significant murmur Gastrointestinal: soft, non-tender, positive bowel sounds Musculoskeletal: pulses present, edema present Neurological: non-focal, moves all 4 limbs Dx/Plan (1) Anemia associated with acute blood loss Code(s): D62 - ACUTE POSTHEMORRHAGIC ANEMIA Status: Acute Comment: secondary to lower GI bleed. Got 2 u PRBC transfusion. (2) Lower GI bleed Code(s): K92.2 - GASTROINTESTINAL HEMORRHAGE, UNSPECIFIED Status: Resolved (3) Morbid obesity Code(s): E66.01 - MORBID (SEVERE) OBESITY DUE TO EXCESS CALORIES Status: Chronic (4) CAD (coronary artery disease) Code(s): I25.10 - ATHSCL HEART DISEASE OF [place] CORONARY ARTERY W/O ANG PCTRS Status: Chronic Qualifiers: Coronary Disease-Associated Artery/Lesion type: [place] artery [place] vs. transplanted heart: [place] heart Associated angina: without angina Qualified Code(s): I25.10 - Atherosclerotic heart disease of [place] coronary artery without angina pectoris Comment: stable. (5) DM2 (diabetes mellitus, type 2) Status: Chronic Qualifiers: Diabetes mellitus shelter insulin use: with intermodal truck driver use Diabetes mellitus complication status: with kidney complications Diabetes mellitus complication detail: with chronic kidney disease Chronic kidney disease stage : on chronic dialysis Qualified Code(s): E11.22 - Type 2 diabetes mellitus with diabetic chronic kidney disease; N18.6 - End stage renal disease; Z79.4 - petroleum terminal plant operator (current) use of insulin; Z99.2 - Dependence on renal dialysis Comment: controlled (6) ESRD (end stage renal disease) on dialysis Code(s): N18.6 - END STAGE RENAL DISEASE; Z99.2 - DEPENDENCE ON RENAL DIALYSIS Status: Chronic Comment: on peritoneal dialysis (7) HTN (hypertension) Code(s): I10 - ESSENTIAL (PRIMARY) HYPERTENSION Status: Chronic Qualifiers: Hypertension type: essential hypertension Qualified Code(s): I10 - Essential (primary) hypertension Comment: controlled (8) Pacemaker Code(s): Z95.0 - PRESENCE OF CARDIAC PACEMAKER Status: Chronic (9) Paroxysmal atrial fibrillation Code(s): I48.0 - PAROXYSMAL ATRIAL FIBRILLATION Status: Chronic Comment: in sinus now (10) Physical deconditioning Code(s): R53.81 - OTHER MALAISE Status: Acute Comment: severe - Plan has off and on lethargy, needs to ambulate and be oob to chair -: will obtain blood cs -: may dc to rehab if accepted, if still lethargic will need to start on HD -: for now continue on PD. -: Is on elavil, zoloft. DC d5w, watch for hypoglycemia * . Has developed severe deconditioning, barely stood with PT so far this hospitalization. Review of Systems - Medications/Allergies Allergies/Adverse Reactions: Allergies Allergy/AdvReac Type Severity Reaction Status Date / Time iodine Allergy Verified 03/26/19 13:29 meperidine [From Demerol] Allergy Verified 03/17/19 12:39 Penicillins Allergy Verified 03/17/19 12:39 Medications: Current Medications Amiodarone HCl (Cordarone) 200 mg PO DAILY [facility] Last Admin: 04/04/19 08:46 Dose: 200 mg Amitriptyline HCl (Elavil) 10 mg PO HS [facility] Last Admin: 04/03/19 20:29 Dose: 10 mg Atorvastatin Calcium (Lipitor) 20 mg PO HS [facility] Last Admin: 04/03/19 20:29 Dose: 20 mg Clopidogrel Bisulfate (Plavix) 37.5 mg PO DAILY [facility] Dextrose/Water (Dextrose 50%) 25 gm SLOW IVP PRN PRN PRN Reason: Hypoglycemia Docusate Sodium (Colace) 100 mg PO BID [facility] Last Admin: 04/04/19 08:46 Dose: 100 mg Glucagon (Glucagon) 1 mg IM PRN PRN PRN Reason: Hypoglycemia Dextrose/Water (D5w) 1,000 mls @ 0 mls/hr IV .Q0M PRN PRN Reason: Hypoglycemia Dextrose/Water (D5w) 1,000 mls @ 50 mls/hr IV .Q20H [facility] Last Admin: 04/04/19 03:49 Dose: 1,000 mls Insulin Human Lispro (Humalog) 0 units SC .MILD SLIDING SCALE PRN PRN Reason: Mild Correctional Scale Last Admin: 04/04/19 05:49 Dose: 4 unit Levothyroxine Sodium (Synthroid) 125 mcg PO 0600 [facility] Last Admin: 04/04/19 03:55 Dose: 125 mcg Pantoprazole Sodium (Protonix) 40 mg PO DAILY [facility] Last Admin: 04/04/19 08:46 Dose: 40 mg Sertraline HCl (Zoloft) 50 mg PO DAILY [facility] Last Admin: 04/04/19 08:46 Dose: 50 mg Sevelamer Carbonate (Renvela) 1,600 mg PO TID[facility] Last Admin: 04/04/19 08:46 Dose: 1,600 mg Sodium Chloride (Flush - Normal Saline) 10 ml IVF PRN PRN PRN Reason: Saline Flush Sodium Chloride (Normal Saline Pf) 10 ml FS PRN PRN PRN Reason: RECONSTITUTION
[2019-04-04] MEDS: Amitriptyline HCl 10 MG TAB PO SCH (20:44)
[2019-04-04] MEDS: Atorvastatin Calcium 20 MG TAB PO SCH (20:44)
[2019-04-04] MEDS ORDERED: HYDROcodone/Acetaminophen 5/325 mg Tablet PO SCH (20:45)
[2019-04-05] MEDS: Levothyroxine Sodium 125 MCG TAB PO SCH (05:55)
[2019-04-05 06:44] LABS: Hemoglobin 9.1 g/dL (12.0-16.0); Mean Corpuscular HGB CONC 33.2 g/dL (32.0-36.0); Mean Corpuscular Hemoglobin 32.8 pg (27.0-31.0); Mean Corpuscular Volume 98.8 fL (78.0-98.0); Mean Platelet Volume 7.2 fL (7.4-10.4); Platelet Count 285 thou/uL (130-400); Red Blood Cell (RBC) Count 2.79 mill/uL (4.20-5.40); White Blood Cell (WBC) Count 7.6 thou/uL (4.8-10.8)
[2019-04-05 06:58] LABS: Albumin 2.7 g/dL (3.4-4.8); Anion Gap 14 mmol/L (10-20); BUN (Urea Nitrogen) 27 mg/dL (9.8-20.1); BUN/Creatinine Ratio 5.17; Calc. Creatinine Clearance 19 mL/min (70-130); Calcium 8.7 mg/dL (7.8-10.44); Carbon Dioxide 27 mmol/L (23-31); Chloride 95 mmol/L (98-107); Estimated GFR-MDRD 8; Glucose 152 mg/dL (80-115); Phosphorus 3.2 mg/dL (2.3-4.7); Potassium 3.4 mmol/L (3.5-5.1); Sodium 133 mmol/L (136-145)
[2019-04-05] MEDS: Docusate 100 MG CAP PO SCH ×2 (08:04→20:04)
[2019-04-05] MEDS: Sevelamer Carbonate 800 MG TAB PO SCH ×3 (08:04→16:41)
[2019-04-05] MEDS: Clopidogrel Bisulfate 75 MG TAB PO SCH (08:04)
[2019-04-05] MEDS: Amiodarone 200 MG TAB PO SCH (08:05)
[2019-04-05] MEDS ORDERED: Potassium Chloride 20 MEQ TAB PO SCH (08:30)
[2019-04-05 08:49] LABS: Band 3 % (5-11); Eosinophils 7 % (0-10); Lymphocytes 16 % (21-51); MDiff Complete? YES; Monocytes 13 % (0-10); Neutrophil 61 % (42-75); RBC Morphology Normal
--- NOTE | 2019-04-05 09:19 | PRG ---
DATE OF SERVICE: 04/05/2019 SUBJECTIVE: Patient was seen and examined at bedside and overnight events noted. Patient denies any shortness of breath or chest pain or palpitation. No history of nausea or vomiting or diarrhea or fever or chills or cramps. OBJECTIVE: GENERAL: This is a morbidly obese female in no apparent distress. VITAL SIGNS: Temperature 97. Pulse 75. Respiratory rate . Blood pressure 132/62. HEENT: Atraumatic, normocephalic. Oral mucosa is moist NECK: Supple. CARDIOVASCULAR: S1, S2 heard. Rate and rhythm regular. RESPIRATORY: Clear to auscultation. GASTROINTESTINAL: Abdomen is soft. MUSCULOSKELETAL: No tenderness. No edema. DERMATOLOGIC: No skin rash. NEUROLOGIC: Alert and awake and oriented X3. No focal neurologic deficits. Moving all the extremities. PSYCHIATRIC: Mood and affect normal. LABORATORY DATA: Potassium is 3.4, BUN is 27, creatinine is 5.2. ASSESSMENT AND PLAN: 1. End-stage renal disease. Continue on peritoneal dialysis as tolerated. 2. Altered mentation, slightly better. 3. . 4. Anemia. 5. Hypokalemia, replace and monitor. Plan to continue on dialysis as tolerated. Job ID: [id number]
[2019-04-05] MEDS ORDERED: Acetaminophen 500 MG TAB PO SCH (16:30)
[2019-04-05] MEDS: Amitriptyline HCl 10 MG TAB PO SCH (20:04)
[2019-04-05] MEDS: Atorvastatin Calcium 20 MG TAB PO SCH (20:04)
--- NOTE | 2019-04-05 22:12 | PDOC.PN ---
- Subjective Encounter Start Date: 04/05/19 Encounter Start Time: 14:20 Complains of pain in legs. No just where she has the skin breakdown, but all over. - Objective Resuscitation Status - Order Detail: 03/26/19 13:57 Resuscitation Status Routine Resuscitation Status: FULL: Full Resuscitation Vital Signs & Weight: Vital Signs (12 hours) Temp Pulse Resp BP Pulse Ox 04/05/19 20:00 98.2 F 74 16 136/63 97 Weight Admit Weight 240 lb 4.862 oz Weight 240 lb 4.862 oz I&O: 04/04/19 04/05/19 04/06/19 06:59 06:59 06:59 Intake Total 2530 1155 2070 Output Total 431 50 Balance 2530 724 2019 Result Diagrams: 04/05/19 05:54 04/05/19 05:54 Additional Labs: Accuchecks 04/05/19 04/05/19 04/05/19 20:35 16:45 11:51 POC Glucose 195 H 118 H 127 H 04/05/19 04/03/19 06:13 06:27 POC Glucose 163 H 39 L* Phys Exam - Physical Examination Constitutional: NAD Morbidly obese. Pupils slightly constrict, symmetric. Neck: no nodes Respiratory: no wheezing, no rales, no rhonchi, clear to auscultation bilateral Cardiovascular: RRR, no significant murmur, no rub Gastrointestinal: soft, non-tender, no distention, positive bowel sounds Mildly encephalopathic appearing. Deviation from normal: Dressings to B posterior calf areas at proxima achilles areas. Dx/Plan (1) Anemia associated with acute blood loss Code(s): D62 - ACUTE POSTHEMORRHAGIC ANEMIA Status: Acute Comment: secondary to lower GI bleed. Got 2 u PRBC transfusion. (2) Physical deconditioning Code(s): R53.81 - OTHER MALAISE Status: Acute Comment: severe (3) Morbid obesity Code(s): E66.01 - MORBID (SEVERE) OBESITY DUE TO EXCESS CALORIES Status: Chronic (4) Lower GI bleed Code(s): K92.2 - GASTROINTESTINAL HEMORRHAGE, UNSPECIFIED Status: Resolved (5) Type 2 myocardial infarction Code(s): I21.A1 - MYOCARDIAL INFARCTION TYPE 2 Status: Acute Comment: Cardiac Cath 03/18/19 with STANLEY Circumflex.cont ASA,Brilinta.on statin (6) CAD (coronary artery disease) Code(s): I25.10 - ATHSCL HEART DISEASE OF [place] CORONARY ARTERY W/O ANG PCTRS Status: Chronic Qualifiers: Coronary Disease-Associated Artery/Lesion type: [place] artery [place] vs. transplanted heart: [place] heart Associated angina: without angina Qualified Code(s): I25.10 - Atherosclerotic heart disease of [place] coronary artery without angina pectoris Comment: stable. 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; Z99.2 - Dependence on renal dialysis Comment: controlled (8) ESRD (end stage renal disease) on dialysis Code(s): N18.6 - END STAGE RENAL DISEASE; Z99.2 - DEPENDENCE ON RENAL DIALYSIS Status: Chronic Comment: on peritoneal dialysis (9) HTN (hypertension) Code(s): I10 - ESSENTIAL (PRIMARY) HYPERTENSION Status: Chronic Qualifiers: Hypertension type: essential hypertension Qualified Code(s): I10 - Essential (primary) hypertension Comment: controlled (10) Pacemaker Code(s): Z95.0 - PRESENCE OF CARDIAC PACEMAKER Status: Chronic (11) Paroxysmal atrial fibrillation Code(s): I48.0 - PAROXYSMAL ATRIAL FIBRILLATION Status: Chronic Comment: in sinus now (12) SMA stenosis Code(s): I77.1 - STRICTURE OF ARTERY Status: Chronic Comment: suspect chronic as Pt asymptomatic.ASA and statin. (13) Wound, open, leg Code(s): S81.809A - UNSPECIFIED OPEN WOUND, UNSPECIFIED LOWER LEG, INIT ENCNTR Status: Chronic Comment: Wound care following - Plan * Continuing to manage with diuresis. * Encephalopathy is some better. * Psychotropic meds have been minimized. That may have helped the mentation, but she now has a recurrence of the neuropathic pain in her legs. * Will start back with one dose of the Gabapentin tonight to see how it may impact her mentation.
[2019-04-05] MEDS ORDERED: Gabapentin 300 MG CAP PO SCH (22:30)
[2019-04-05] MEDS ORDERED: Acetaminophen 325 MG TAB PO SCH (22:30)
[2019-04-06] MEDS: Levothyroxine Sodium 125 MCG TAB PO SCH (05:28)
[2019-04-06] MEDS: HumaLOG 300 UNITS/3 ML VIAL SC PRN (05:58)
[2019-04-06] MEDS: Sevelamer Carbonate 800 MG TAB PO SCH ×3 (07:51→16:06)
[2019-04-06] MEDS: Clopidogrel Bisulfate 75 MG TAB PO SCH (07:51)
[2019-04-06] MEDS: Docusate 100 MG CAP PO SCH ×2 (07:51→20:20)
[2019-04-06] MEDS: Amiodarone 200 MG TAB PO SCH (07:51)
--- NOTE | 2019-04-06 10:23 | PRG ---
DATE OF SERVICE: 04/06/2019 SUBJECTIVE: Patient was seen and examined at bedside and overnight events noted. Patient denies any shortness of breath or chest pain or palpitation. No history of nausea or vomiting or diarrhea or fever or chills or cramps. OBJECTIVE: GENERAL: This is a morbidly obese female, in no acute distress. VITAL SIGNS: Temperature 97.2. Heart rate 72. Respiratory rate 18. Blood pressure 141/59. HEENT: Atraumatic, normocephalic. Oral mucosa is moist NECK: Supple. CARDIOVASCULAR: S1, S2 heard. Rate and rhythm regular. RESPIRATORY: Clear to auscultation. GASTROINTESTINAL: Abdomen is soft. MUSCULOSKELETAL: No tenderness. DERMATOLOGIC: No skin rash. NEUROLOGIC: Alert and awake and oriented X3. No focal neurologic deficits. Moving all the extremities. PSYCHIATRIC: Mood and affect normal. LABORATORY DATA: Not done today. ASSESSMENT AND PLAN: 1. End-stage renal disease, currently on peritoneal dialysis as tolerated. 2. Altered mentation, better. 3. Edema . 4. History of hypertension. 5. Hypokalemia, replace and monitor. 6. Morbid obesity. Plan to continue on peritoneal dialysis as tolerated. Job ID: [id number]
--- NOTE | 2019-04-06 18:32 | PDOC.CTH ---
Cardiology Progress Note - Subjective Tolerating half dose Plavix. - Objective Vital Signs Temp Pulse Resp BP Pulse Ox 04/06/19 12:51 98.1 F 74 16 156/70 H 93 L 04/06/19 09:26 98 04/06/19 09:00 82 L 04/06/19 08:00 97.2 F L 72 18 141/59 H 98 Admit Weight 240 lb 4.862 oz Weight 240 lb 4.862 oz 04/05/19 04/06/19 04/07/19 06:59 06:59 06:59 Intake Total 1155 2480 1430 Output Total 431 52 Balance 724 2428 1430 - Physical Examination General/Neuro: alert & oriented x3, NAD Neck: no JVD present Lungs: unlabored respirations Heart: RRR Abdomen: NT/ND Extremities: + edema B (1+) - Labs Result Diagrams: 04/05/19 05:54 04/05/19 05:54 - Assessment/Plan 1. Acute blood loss anemia 2. GI bleed, (hematochezia), likely diverticular. 3. Recent stenting to LCx with STANLEY. 4. PVD. 5. ESRD on PD. PLAN: - Continue Plavix half dose. - Monitor Hgb. - If stable in next 48 hrs may discharge on current meds.
[2019-04-06] MEDS: Amitriptyline HCl 10 MG TAB PO SCH (20:20)
[2019-04-06] MEDS: Atorvastatin Calcium 20 MG TAB PO SCH (20:20)
[2019-04-07] MEDS: Acetaminophen 325 MG TAB PO PRN ×2 (03:07→14:59)
[2019-04-07] MEDS: Levothyroxine Sodium 125 MCG TAB PO SCH (05:41)
[2019-04-07] MEDS: HumaLOG 300 UNITS/3 ML VIAL SC PRN (05:42)
[2019-04-07 08:19] VITALS: BP 119/56; TEMP 98.3
--- NOTE | 2019-04-07 09:14 | PDOC.PN ---
- Subjective Encounter Start Date: 04/06/19 Encounter Start Time: 12:00 About the same. Still has some discomfort in her legs. No other complaints. - Objective Resuscitation Status - Order Detail: 03/26/19 13:57 Resuscitation Status Routine Resuscitation Status: FULL: Full Resuscitation Vital Signs & Weight: Vital Signs (12 hours) Temp Pulse Resp BP Pulse Ox 04/07/19 08:00 98.3 F 72 18 119/56 L 98 Weight Admit Weight 240 lb 4.862 oz Weight 240 lb 4.862 oz I&O: 04/06/19 04/07/19 04/08/19 06:59 06:59 06:59 Intake Total 2480 1670 Output Total 52 Balance 2428 1670 Result Diagrams: 04/05/19 05:54 04/05/19 05:54 Additional Labs: Accuchecks 04/07/19 04/06/19 04/06/19 04:29 20:32 11:32 POC Glucose 170 H 174 H 103 Phys Exam - Physical Examination Constitutional: NAD Respiratory: no wheezing, no rales, no rhonchi, clear to auscultation bilateral Cardiovascular: RRR, no significant murmur, no rub Gastrointestinal: soft, non-tender, no distention, positive bowel sounds Musculoskeletal: no edema Neurological: non-focal, normal sensation, moves all 4 limbs Deviation from normal: encepahalopathy has improved. Dx/Plan (1) Anemia associated with acute blood loss Code(s): D62 - ACUTE POSTHEMORRHAGIC ANEMIA Status: Acute Comment: secondary to lower GI bleed. Got 2 u PRBC transfusion. (2) Physical deconditioning Code(s): R53.81 - OTHER [place]AISE Status: Acute Comment: severe (3) Morbid obesity Code(s): E66.01 - MORBID (SEVERE) OBESITY DUE TO EXCESS CALORIES Status: Chronic (4) Lower GI bleed Code(s): K92.2 - GASTROINTESTINAL HEMORRHAGE, UNSPECIFIED Status: Resolved (5) Type 2 myocardial infarction Code(s): I21.A1 - MYOCARDIAL INFARCTION TYPE 2 Status: Acute Comment: Cardiac Cath 03/18/19 with STANLEY Circumflex.cont ASA,Brilinta.on statin (6) CAD (coronary artery disease) Code(s): I25.10 - ATHSCL HEART DISEASE OF [place] CORONARY ARTERY W/O ANG PCTRS Status: Chronic Qualifiers: Coronary Disease-Associated Artery/Lesion type: [place] artery [place] vs. transplanted heart: [place] heart Associated angina: without angina Qualified Code(s): I25.10 - Atherosclerotic heart disease of [place] coronary artery without angina pectoris Comment: stable. 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 Diabetes mellitus complication status: with kidney complications Diabetes mellitus complication detail: with chronic kidney disease Chronic kidney disease stage : on chronic dialysis Qualified Code(s): E11.22 - Type 2 diabetes mellitus with diabetic chronic kidney disease; N18.6 - End stage renal disease; Z79.4 - intermediate (current) use of insulin; Z99.2 - Dependence on renal dialysis Comment: controlled (8) ESRD (end stage renal disease) on dialysis Code(s): N18.6 - END STAGE RENAL DISEASE; Z99.2 - DEPENDENCE ON RENAL DIALYSIS Status: Chronic Comment: on peritoneal dialysis (9) HTN (hypertension) Code(s): I10 - ESSENTIAL (PRIMARY) HYPERTENSION Status: Chronic Qualifiers: Hypertension type: essential hypertension Qualified Code(s): I10 - Essential (primary) hypertension Comment: controlled (10) Pacemaker Code(s): Z95.0 - PRESENCE OF CARDIAC PACEMAKER Status: Chronic (11) Paroxysmal atrial fibrillation Code(s): I48.0 - PAROXYSMAL ATRIAL FIBRILLATION Status: Chronic Comment: in sinus now (12) SMA stenosis Code(s): I77.1 - STRICTURE OF ARTERY Status: Chronic Comment: suspect chronic as Pt asymptomatic.ASA and statin. (13) Wound, open, leg Code(s): S81.809A - UNSPECIFIED OPEN WOUND, UNSPECIFIED LOWER LEG, INIT ENCNTR Status: Chronic Comment: Wound care following - Plan * Doing well. * Tolerating the half dose of Plavix well. * Encephalopathy improving. * Leg pain tolerable. She may need to go back on the Gabapentin slowly over time. * Accepted to IRF, but no beds available.
[2019-04-07] MEDS: Sevelamer Carbonate 800 MG TAB PO SCH ×2 (09:25→13:53)
[2019-04-07] MEDS: Amiodarone 200 MG TAB PO SCH (09:26)
[2019-04-07] MEDS: Clopidogrel Bisulfate 75 MG TAB PO SCH (09:26)
[2019-04-07] MEDS: Docusate 100 MG CAP PO SCH (09:26)
[2019-04-07 10:20] LABS: Hemoglobin 8.6 g/dL (12.0-16.0)
--- NOTE | 2019-04-07 11:50 | PRG ---
DATE OF SERVICE: 04/07/2019 SUBJECTIVE: Patient was seen and examined at bedside and overnight events noted. Patient denies any shortness of breath or chest pain or palpitation. No history of nausea or vomiting or diarrhea or fever or chills or cramps. OBJECTIVE: GENERAL: This is a morbidly obese female, in no acute distress. VITAL SIGNS: Temperature 98.3. Heart rate 72. Respiratory rate . HEENT: Atraumatic, normocephalic. Oral mucosa is moist NECK: Supple. CARDIOVASCULAR: S1, S2 heard. Rate and rhythm regular. RESPIRATORY: Clear to auscultation. GASTROINTESTINAL: Abdomen is soft. MUSCULOSKELETAL: No tenderness. No edema. DERMATOLOGIC: No skin rash. NEUROLOGIC: Alert and awake and oriented X3. No focal neurologic deficits. Moving all the extremities. PSYCHIATRIC: Mood and affect normal. LABORATORY DATA: Not done today. ASSESSMENT AND PLAN: 1. End-stage renal disease, currently on peritoneal dialysis as tolerated. 2. Altered mentation. 3. History of hypertension. 4. Morbid obesity. 5. long-term prognosis guarded. We will continue PD as tolerated. Job ID: [id number]
--- NOTE | 2019-04-07 17:59 | PDOC.CTH ---
Cardiology Progress Note - Subjective She had 2 normal BM's brown no blood. yesterday and today. - Objective Vital Signs Temp Pulse Resp BP Pulse Ox 04/07/19 13:55 95 04/07/19 13:54 84 L 04/07/19 08:00 98.3 F 72 18 119/56 L 98 Admit Weight 240 lb 4.862 oz Weight 240 lb 4.862 oz 04/06/19 04/07/19 04/08/19 06:59 06:59 06:59 Intake Total 2480 1670 Output Total 52 Balance 2428 1670 - Physical Examination General/Neuro: alert & oriented x3, NAD Neck: no JVD present Lungs: unlabored respirations Heart: RRR Abdomen: NT/ND Extremities: + edema B (1+) - Telemetry Telemetry Rhythm: NSR - Labs Result Diagrams: 04/07/19 09:56 04/05/19 05:54 - Assessment/Plan 1. Acute blood loss anemia 2. GI bleed, (hematochezia), likely diverticular. 3. Recent stenting to LCx with STANLEY. 4. PVD. 5. ESRD on PD. PLAN: - Continue Plavix half dose, no aspirin. - Hgb stabe for last 3 days. - No more bleeding and normal BM's. - May discharge from hospital from cardiac perspective.
== END 2019-04-07 15:07 | DRG 377 ==
LOC: ERS 07:33 → T4-B 13:11
PROVIDERS: ADMIT Internal Medicine; ATTEND Internal Medicine
PROC: 0DJ08ZZ Inspection of Upper Intestinal Tract, Via Natural or Artificial Opening Endoscopic (ICD-10-PCS; principal; 2019-03-27)
DX: K57.91 Diverticulosis of intestine, part unspecified, without perforation or abscess with bleeding (principal); N18.6 End stage renal disease; D62 Acute posthemorrhagic anemia; Z68.41 Body mass index [BMI] 40.0-44.9, adult; I12.0 Hypertensive chronic kidney disease with stage 5 chronic kidney disease or end stage renal disease; I25.10 Atherosclerotic heart disease of native coronary artery without angina pectoris; E11.22 Type 2 diabetes mellitus with diabetic chronic kidney disease; E11.51 Type 2 diabetes mellitus with diabetic peripheral angiopathy without gangrene; E03.9 Hypothyroidism, unspecified; E87.5 Hyperkalemia; I48.0 Paroxysmal atrial fibrillation; K29.70 Gastritis, unspecified, without bleeding; S81.809A Unspecified open wound, unspecified lower leg, initial encounter; D63.1 Anemia in chronic kidney disease; E66.01 Morbid (severe) obesity due to excess calories; E87.6 Hypokalemia; I95.9 Hypotension, unspecified; R53.81 Other malaise; R41.82 Altered mental status, unspecified; I77.1 Stricture of artery; Z96.649 Presence of unspecified artificial hip joint; Z99.2 Dependence on renal dialysis; Z95.1 Presence of aortocoronary bypass graft; Z90.710 Acquired absence of both cervix and uterus; Z88.0 Allergy status to penicillin; Z88.8 Allergy status to other drugs, medicaments and biological substances; Z79.82 Long term (current) use of aspirin; Z79.899 Other long term (current) drug therapy; Z79.4 Long term (current) use of insulin; Z90.49 Acquired absence of other specified parts of digestive tract; Z91.041 Radiographic dye allergy status; X58.XXXA Exposure to other specified factors, initial encounter
CPT/HCPCS: 36415; 36416; 36430; 70450; 74177; 78278; 80048; 80053; 80069; 82728; 82947; 83540; 83550; 85014; 85018; 85025; 85610; 85730; 86704; 86706; 86850; 86900; 86901; 87340; 90935; 90945; 96361; 96365; 96366; 96375; A9604; C9113; G0257; J1825; J2001; J2270; J2704; J3490; J8597; P9016; Q9966